=== PATIENT | female | born 1960 | race Caucasian/White ===

== ENCOUNTER 2016-05-08 16:50 | Observation (INO) | payer OTHER ==
[~2016-05-08] VITALS: Ht 149.9 cm; Wt 104.4 kg
[~2016-05-08 16:50] MED LIST: ADVIN50/60 INH; ALBINS/ INH; CLON0.3T PO; DEXT5TAB PO; GABA-113 PO; LOSA1TAB38 PO; MULT-506 PO; POLY335019 PO; SERT-234 PO; VNTHFA/IN INH; ZNTT/150 PO
[2016-05-08] MEDS ORDERED: ASPIRIN 81 MG CHEW PO STA (17:02)
[2016-05-08] MEDS ORDERED: TRAZ50TA35 PO (17:11)
[2016-05-08] MEDS ORDERED: NITROGLYCERIN 0.4 MG SL PER TAB CHARGE SL PRN ×2 (17:15→19:30)
[2016-05-08] MEDS ORDERED: ALBUTEROL 0.083% NEBU SOLN 3 ML VIAL INH STA (17:24)
[2016-05-08 17:28] LABS: BASO % 0.8 %; BASO ABS # 0.08 K/uL (0-0.2); COMPLETE YES; EOS % 6.8 %; HEMATOCRIT 38.7 % (37-47); IG% 0.6 %; LYMPH % 19.3 %; LYMPH ABS # 1.95 K/uL (1.2-3.4); MEAN CELL VOLUME 83.8 fL (80-100); MEAN CORPUSCULAR HEMOGLOBIN 28.8 pg (25-34); MEAN CORPUSCULAR HGB CONC 34.4 g/dl (32-36); MEAN PLATELET VOLUME 10.3 fL (7.4-10.4); MONO % 4.8 %; NEUT % 67.7 %; PLATELET COUNT 289 K/uL (130-400); RED BLOOD COUNT 4.62 M/uL (4.2-5.4); WHITE BLOOD COUNT 10.12 K/uL (4.8-10.8)
--- NOTE | 2016-05-08 17:44 | DIAGNOSTIC IMAGING REPORT ---
SINGLE VIEW CHEST CLINICAL HISTORY: Atypical chest pain. FINDINGS: An AP, portable, upright chest radiograph is obtained. No prior studies are available for comparison at the time of dictation. The examination is degraded by portable technique, large body habitus, and patient rotation. The heart appears enlarged. The pulmonary vasculature is noncongested. There is mild elevation of the right hemidiaphragm. The lungs and pleural spaces are clear. No pneumothorax is seen. The bony thorax is grossly intact. IMPRESSION: Mild cardiac enlargement with no acute cardiopulmonary abnormality. Electronically signed by: Adam Leon M.D. 05/08/2016 5:43 PM Dictated Date/Time: 05/08/2016 5:42 PM
[2016-05-08 17:48] LABS: BLOOD UREA NITROGEN 13 mg/dl (7-18); BUN/CREATININE RATIO 13.3 (10-20); CALCIUM 8.7 mg/dl (8.5-10.1); CARBON DIOXIDE 30 mmol/L (21-32); CHLORIDE 105 mmol/L (98-107); GLUCOSE 159 mg/dl (70-99); POTASSIUM 3.1 mmol/L (3.5-5.1); SODIUM 142 mmol/L (136-145)
[2016-05-08 17:53] LABS: CKMB/CK RATIO 1.2 (0-3.0)
[2016-05-08] MEDS ORDERED: KETOROLAC TROMETHAMINE 30 MG/ML VIAL IV STA (18:09)
[2016-05-08] MEDS ORDERED: POTASSIUM CHLORIDE 20 MEQ TABCR PO ONE (18:45)
[2016-05-08] MEDS ORDERED: ONDANSETRON INJ 2 MG/ML 2 ML VIAL IV PRN (18:45)
[2016-05-08] MEDS ORDERED: POLYETHYLENE (MIRALAX) 17 GM PACK PO PRN (19:15)
[2016-05-08] MEDS ORDERED: ALBUTEROL HFA 8 GM INHALER INH PRN (19:30)
[2016-05-08 19:47] VITALS: BP 172/93; PULSE 80; TEMP 37; O2SAT 96; BMI 46.6
--- NOTE | 2016-05-08 20:18 | History and Physical ---
History & Physical Date & Time of Service: May 08, 2016 at 19:32 Chief Complaint: Chest Pain Primary Care Physician: Navya Henson D.O. History of Present Illness Source: patient, clinic records This is a 56 year old female with PMH of asthma, hypertension, prediabetes, borderline hyperlipidemia per patient, who presents to the ED with chest pain and shortness of breath. Patient states she had 2 asthma exacerbations treated with steroids 2 months ago and 1 month ago. Symptoms initially improved then returned over past few weeks. She reports nasal congestion, dry cough, wheezing , SOB at rest and exertion. She states rescue nebs and inhalers are no longer helping. She also stopped Advair as she felt it was not helping. Breathing is now improved after neb given in ER. Patient reports chest pain intermittently over past 1 month described as stabbing from her back to her chest. She attributed this to anxiety. She also reports for past 2 weeks she has intermittent central chest pain described as cramping and soreness which radiates to her neck and left shoulder, which is worse with cough or straining for bowel movement. Denies association with exertion. Nitro in the ER did not affect the pain, but gave her a headache. Pain is now resolved but is feeling mildly nauseous. She reports dry mouth and states she feels dehydrated. She is eating normally but "not drinking enough". She had an episode of vomiting 2 days ago which resolved. Pt states her acid reflux symptoms have been uncontrolled recently. She was on Nexium in the past but was changed to Zantac due to insurance coverage. She has EGD and colonoscopy scheduled for next Saturday with Dr. Dawson. Pt states BP is running 180s- 200s systolic at home for past few days. She has been compliant with BP meds. She had chills/ sweats a few days ago. Denies fever, sore throat, swallowing difficulty, abdominal pain , diarrhea, urinary change, calf pain, edema, abnormal bleeding. Denies any cardiac history. Last echo and stress test in 2010 in [place] were unremarkable as per patient. Past Medical/Surgical History Medical Problems: (1) Anxiety Status: Chronic (2) Asthma Status: Chronic (3) Borderline high cholesterol Status: Chronic (4) Depression Status: Chronic (5) GERD (gastroesophageal reflux disease) Status: Chronic (6) Hypertension Status: Chronic (7) Prediabetes Status: Chronic Surgical Problems: (1) History of hysterectomy Status: Chronic Family History AICD (automatic internal cardiac defibrillator) MOTHER Social History Smoking Status: Never Smoker Alcohol Use: none Allergies Coded Allergies: Latex1 -Allergic Contact Dermititis (Unverified Allergy, Mild, ITCHING, REDNESS, BLISTER, 05/08/16) Aspirin (Verified Allergy, Unknown, MOUTH ULCERS AND BLISTERS IF TAKEN DAILY, 05/08/16) Eggs or Egg-derived Products (Verified Allergy, Unknown, NAUSEA/VOMITING, 05/08/16) Hydralazine (Verified Allergy, Unknown, SEVERE MUSCLE PAIN AND WEAKNESS, ) Milk (Verified Allergy, Unknown, RASH, 05/08/16) Rosuvastatin (Verified Allergy, Unknown, MUSCLE PAIN, 05/08/16) Hydrochlorothiazide (Verified Adverse Reaction, Intermediate, HIVES, ) Uncoded Allergies: BANANAS (Allergy, Unknown, MOUTH SORES/BLISTERS, 05/08/16) Home Medications Scheduled Clonidine Hcl (Catapres), 0.3 MG PO BID Fluticasone Prop/Salmeterol (Advair Diskus 500/50 60 Dose), 1 PUFF INH BID Gabapentin (Neurontin), 600 MG PO TID Losartan Potassium (Cozaar), 100 MG PO QAM Multivitamin (Multivitamin), 1 TAB PO QAM Ranitidine (Zantac), 150 MG PO BID Sertraline (Zoloft), 100 MG PO QAM Trazodone Hcl (Trazodone), 50 MG PO HS Scheduled PRN Albuterol Hfa (Ventolin Hfa), 2 PUFFS INH Q6H PRN for SOB/Wheezing Albuterol Sulf (Proventil 0.083% 2.5MG/3ML), 2.5 MG INH QID PRN for SOB/Wheezing Polyethylene Glycol 3350 (Miralax), 17 GM PO DAILY PRN for Constipation Review of Systems Ten point review of systems performed with pertinent positives and negatives noted in HPI. Physical Exam Vital Signs Date Time Temp Pulse Resp B/P Pulse Ox O2 Delivery O2 Flow Rate FiO2 05/08/16 19:14 81 18 148/74 96 Room Air 05/08/16 18:19 84 16 179/81 94 Room Air 05/08/16 17:07 98 Room Air 05/08/16 17:03 36.9 100 20 190/99 97 Room Air 05/08/16 17:03 97 Room Air 05/08/16 17:02 90 General Appearance: no apparent distress, + obese Head: normocephalic, atraumatic Eyes: normal inspection, PERRL, EOMI, sclerae normal ENT: hearing grossly normal, pharynx normal Neck: supple, trachea midline Respiratory/Chest: normal breath sounds, no respiratory distress, + wheezing ( moderate expiratory wheezing), + pertinent finding (+ chest wall tenderness) Cardiovascular: regular rate, rhythm, no murmur Abdomen/GI: normal bowel sounds, soft, + pertinent finding (mild epigastric tenderness) Back: + pertinent finding (+ thoracic paraspinal muscle tenderness) Extremities/Musculoskelatal: normal inspection, no calf tenderness, no pedal edema Neurologic/Psych: alert, normal mood/affect, oriented x 3, + pertinent finding (grossly nonfocal) Skin: normal color, warm/dry, no rash (no rash on the chest) Diagnostics Laboratory Results Results Past 24 Hours Test 05/08/16 17:05 Range/Units White Blood Count 10.12 4.8-10.8 K/uL Red Blood Count 4.62 4.2-5.4 M/uL Hemoglobin 13.3 12.0-16.0 g/dL Hematocrit 38.7 37-47 % Mean Corpuscular Volume 83.8 80-100 fL Mean Corpuscular Hemoglobin 28.8 25-34 pg Mean Corpuscular Hemoglobin Concent 34.4 32-36 g/dl Platelet Count 289 130-400 K/uL Mean Platelet Volume 10.3 7.4-10.4 fL Neutrophils (%) (Auto) 67.7 % Lymphocytes (%) (Auto) 19.3 % Monocytes (%) (Auto) 4.8 % Eosinophils (%) (Auto) 6.8 % Basophils (%) (Auto) 0.8 % Neutrophils # (Auto) 6.85 1.4-6.5 K/uL Lymphocytes # (Auto) 1.95 1.2-3.4 K/uL Monocytes # (Auto) 0.49 0.11-0.59 K/uL Eosinophils # (Auto) 0.69 0-0.5 K/uL Basophils # (Auto) 0.08 0-0.2 K/uL RDW Standard Deviation 45.0 36.4-46.3 fL RDW Coefficient of Variation 14.6 11.5-14.5 % Immature Granulocyte % (Auto) 0.6 % Immature Granulocyte # (Auto) 0.06 0.00-0.02 K/uL D-Dimer 400 0-500 ug/L FEU Sodium Level 142 136-145 mmol/L Potassium Level 3.1 3.5-5.1 mmol/L Chloride Level 105 98-107 mmol/L Carbon Dioxide Level 30 21-32 mmol/L Anion Gap 7.0 3-11 mmol/L Blood Urea Nitrogen 13 7-18 mg/dl Creatinine 1.00 0.60-1.20 mg/dl Est Creatinine Clear Calc Drug Dose 68.9 ml/min Estimated GFR () 74.0 Estimated GFR (Non- 63.8 BUN/Creatinine Ratio 13.3 10-20 Random Glucose 159 70-99 mg/dl Calcium Level 8.7 8.5-10.1 mg/dl Total Creatine Kinase 58 26-192 U/L Creatine Kinase MB 0.7 0.5-3.6 ng/ml Creatine Kinase MB Ratio 1.2 0-3.0 Troponin I < 0.015 0-0.045 ng/ml Diagnostic Radiology SINGLE VIEW CHEST CLINICAL HISTORY: Atypical chest pain. FINDINGS: An AP, portable, upright chest radiograph is obtained. No prior studies are available for comparison at the time of dictation. The examination is degraded by portable technique, large body habitus, and patient rotation. The heart appears enlarged. The pulmonary vasculature is noncongested. There is mild elevation of the right hemidiaphragm. The lungs and pleural spaces are clear. No pneumothorax is seen. The bony thorax is grossly intact. IMPRESSION: Mild cardiac enlargement with no acute cardiopulmonary abnormality. EKG NSR, nonspecific T wave abnormality, no ST changes, no prior EKG available to compare Impression Assessment and Plan CHEST PAIN Rule out ACS (less likely given history)- risk factors include HTN, borderline dyslipidemia, prediabetes, obesity Differential includes musculoskeletal, pleuritic, GERD, anxiety related pain Initial troponin negative; d dimer negative; CXR unremarkable EKG- nonspecific T wave abnormality Received aspirin 324 mg and nitro in ER Check echo Trend serial cardiac enzymes Recheck EKG in am ASTHMA EXACERBATION No consolidation on CXR Check influenza PCR IV Solu-Medrol 40 mg BID Duonebs q6h Continue home inhalers UNCONTROLLED HYPERTENSION BP high as 190s/90s in ER -> improved to 140s/70s after nitro Was running 180s-200s at home past few days as per patient Has been compliant with home meds Continue clonidine 0.3 mg BID and Losartan 100 mg daily Add amlodipine 5 mg daily Monitor BP HYPOKALEMIA PO replacement and recheck in am PREDIABETES Monitor BSG AC HS Check A1c in am Regular diet requested by patient HX OF BORDERLINE DYSLIPIDEMIA Not on medication States had myalgias with statin in the past Check lipid panel in am GERD Reports uncontrolled symptoms Was on Nexium in past- changed to Zantac due to insurance coverage Will d/c Zantac and restart PPI Plans for EGD next week with Dr. Dawson DEPRESSION/ ANXIETY Continue home medications DVT PROPHYLAXIS Lovenox SQ DISPOSITION Observation to telemetry Follows with Dr. Navya Henson for primary care Patient seen in collaboration with Dr. Shahid. Please see his addendum. Attending Note: Patient is a 56 Yr old female with PMH of asthma, hypertension, prediabetes presents with history of SOB and retrosternal sharp chest pain. Reports associated dry cough and wheezing. Chest pain is intermittent, onset at rest, starts from back and radiates to front retrosternally, sharp in quality, sometimes radiates to neck and shoulder, increases with cough. Her asthma is not well controlled and she stopped using advair and believes it is not working. She had nausea and vomiting 2 days ago which currently resolved. Also has H/O GERD which is believes is not well controlled as well. Physical Exam: Vitals signs as noted above General: well built and nourished, obese, no apparent distress HEENT: NC/AT, EOMI, PERRLA Neck: supple, no JVD CVS: S1, S2, no murmur Chest: Tender to palpate retrosternally, normal breath sounds, wheezes bilaterally Abd: Soft, mild epigastric tenderness, no guarding/rigidity, BS present CLAIM TECHNICIAN: No focal deficits Ext: No cyanosis, clubbing, edema Assessment and Plan: Asthma exacerbation: Start on IV solumedrol Duonebs QID CXR: No signs of consolidation Oxygen PRN Continue home inhalers Chest Pain: R/O ACS Likely costochondritis/secondary to asthma exacerbation EKG: Nonspecific T wave changes Trend troponin Check ECHO Repeat EKG in AM Hypokalemia: Replace and monitor Hypertensive Urgency: Currently controlled Continue clonidine, losartan Start her on amlodipine GERD: Start on PPI Hold Zantac Plan for EGD next week by Agree with rest of assessment and plan of Jannet Grigsby PA-C as above VTE Prophylaxis VTE Risk Assessment Done? Y/N: Yes Risk Level: Moderate
[2016-05-08] MEDS: FLUTICASONE/SALMETEROL (ADVAIR) 500/50 INH 14 PUFF INH SCH (20:33)
[2016-05-08] MEDS: METHYLPREDNISOLONE IV 40 MG in SYRINGE 0 ML IV SCH (20:33)
[2016-05-08] MEDS: GABAPENTIN 600 MG TAB PO SCH (20:34)
[2016-05-08] MEDS: CLONIDINE HCL 0.3 MG TAB PO SCH (20:34)
[2016-05-08] MEDS: ALBUT/IPRATROP 3MG/0.5MG NEB 3 ML VIAL INH SCH (20:43)
[2016-05-08 20:44] VITALS: PULSE 75; O2SAT 96
[2016-05-08] MEDS ORDERED: IV FLUIDS COMPLETED PRN (20:45)
[2016-05-08] MEDS ORDERED: TRAZODONE HCL 50 MG TAB PO SCH (21:00)
[2016-05-08] MEDS ORDERED: RANITIDINE HCL 150 MG TAB PO SCH (21:00)
[2016-05-09] VITALS (7 sets, daily range): BP systolic 151–170; BP diastolic 82–91; PULSE 76–109; TEMP 36.3–36.7; O2SAT 94–95; Ht 149.9 cm; Wt 104.4 kg
[2016-05-09 00:30] LABS: INFLUENZA A PCR Neg for Influ A (NEG); INFLUENZA B PCR Neg for Influ B (NEG)
--- NOTE | 2016-05-09 00:41 | EMERGENCY ROOM VISIT NOTE ---
History Report prepared by Damion: Lamine Perez Under the Supervision of: Dr. Tr Bahena D.O. First contact with patient: 16:52 Stated Complaint: CHEST PAIN History of Present Illness The patient is a 56 year old female who presents to the Emergency Room with complaints of intermittent chest pain beginning four days prior to arrival. She describes her pain as a stabbing pain. The patient states the pain starts in the center of her back and radiates to her chest. She notes the episodes last for a couple seconds. The patient states her last episode was late last night or early this morning. She associates a pain in the back of her neck radiating to her head, shortness of breath, and squeezing chest pain that is different from the stabbing chest pain with today's symptoms. The patient notes her shortness of breath and squeezing chest pain worsens with exertion, which started 2-3 days ago. The stabbing chest pain will occur intermittently, usually at rest but nothing makes this better or worse. She states she has a history of asthma, but her symptoms today are different. The patient notes she has a history of hypertension, prediabetes, and borderline cholesterol. She states she experiences headaches due to her hypertension intermittently. The patient notes she does not take medication for her prediabetes or cholesterol. She denies a history of blood clots and heart disease. The patient denies a family history of heart attacks at a young age. She is a non-smoker. Pt denies headache, cough, change in vision, fevers, nausea, vomiting, diarrhea, pain with urination, and melena. Source of History: patient Onset: four days CASH POSTER Position: chest Quality: stabbing Timing: intermittent Associated Symptoms: + SOB, + back pain, + chest pain (squeezing), + neck pain (back of neck radiating to her head) Review of Systems See HPI for pertinent positives & negatives. A total of 10 systems reviewed and were otherwise negative. Past Medical & Surgical Medical Problems: (1) Anxiety (2) Asthma (3) Borderline high cholesterol (4) Chest pain (5) Depression (6) GERD (gastroesophageal reflux disease) (7) Hypertension (8) Prediabetes Surgical Problems: (1) History of hysterectomy Family History Patient reports no known family medical history. Social History Smoking Status: Never Smoker Marital Status: Occupation Status: disabled Current/Historical Medications Scheduled Clonidine Hcl (Catapres), 0.3 MG PO BID Fluticasone Prop/Salmeterol (Advair Diskus 500/50 60 Dose), 1 PUFF INH BID Gabapentin (Neurontin), 600 MG PO TID Losartan Potassium (Cozaar), 100 MG PO QAM Multivitamin (Multivitamin), 1 TAB PO QAM Ranitidine (Zantac), 150 MG PO BID Sertraline (Zoloft), 100 MG PO QAM Trazodone Hcl (Trazodone), 50 MG PO HS Scheduled PRN Albuterol Hfa (Ventolin Hfa), 2 PUFFS INH Q6H PRN for SOB/Wheezing Albuterol Sulf (Proventil 0.083% 2.5MG/3ML), 2.5 MG INH QID PRN for SOB/Wheezing Polyethylene Glycol 3350 (Miralax), 17 GM PO DAILY PRN for Constipation Allergies Coded Allergies: Latex1 -Allergic Contact Dermititis (Unverified Allergy, Mild, ITCHING, REDNESS, BLISTER, 05/08/16) Aspirin (Verified Allergy, Unknown, MOUTH ULCERS AND BLISTERS IF TAKEN DAILY, 05/08/16) Eggs or Egg-derived Products (Verified Allergy, Unknown, NAUSEA/VOMITING, 05/08/16) Hydralazine (Verified Allergy, Unknown, SEVERE MUSCLE PAIN AND WEAKNESS, ) Milk (Verified Allergy, Unknown, RASH, 05/08/16) Rosuvastatin (Verified Allergy, Unknown, MUSCLE PAIN, 05/08/16) Hydrochlorothiazide (Verified Adverse Reaction, Intermediate, HIVES, ) Uncoded Allergies: BANANAS (Allergy, Unknown, MOUTH SORES/BLISTERS, 05/08/16) Physical Exam Vital Signs Date Time Temp Pulse Resp B/P Pulse Ox O2 Delivery O2 Flow Rate FiO2 05/08/16 18:19 84 16 179/81 94 Room Air 05/08/16 17:07 98 Room Air 05/08/16 17:03 36.9 100 20 190/99 97 Room Air 05/08/16 17:03 97 Room Air 05/08/16 17:02 90 Physical Exam GENERAL: sitting up in bed, disheveled, non-toxic, no acute distress. EYE EXAM: normal conjunctiva OROPHARYNX: no exudate, no erythema, lips, buccal mucosa, and tongue normal and mucous membranes are moist NECK: supple, no nuchal rigidity, no adenopathy, non-tender LUNGS: Mild wheezing bilaterally to auscultation. Normal chest wall mechanics HEART: no murmurs, S1 normal and S2 normal CHEST: reproducible sternal tenderness on palpation ABDOMEN: abdomen soft, non-tender, normo-active bowel sounds, no masses, no rebound or guarding. BACK: Back is symmetrical on inspection and there is no deformity, no midline tenderness, no CVA tenderness. SKIN: no rashes and no bruising UPPER EXTREMITIES: upper extremities are grossly normal. LOWER EXTREMITIES: No pitting edema. Calves equal bilaterally. NEURO EXAM: Normal sensorium, cranial nerves II-XII grossly intact, normal speech, no gross weakness of arms, no gross weakness of legs. Medical Decision & Procedures ER Provider Diagnostic Interpretation: Xray results per the radiologist and my interpretation. Other results have been interpreted by the radiologist and reviewed by me. SINGLE VIEW CHEST CLINICAL HISTORY: Atypical chest pain. FINDINGS: An AP, portable, upright chest radiograph is obtained. No prior studies are available for comparison at the time of dictation. The examination is degraded by portable technique, large body habitus, and patient rotation. The heart appears enlarged. The pulmonary vasculature is noncongested. There is mild elevation of the right hemidiaphragm. The lungs and pleural spaces are clear. No pneumothorax is seen. The bony thorax is grossly intact. IMPRESSION: Mild cardiac enlargement with no acute cardiopulmonary abnormality. Electronically signed by: Adam Leon M.D. 05/08/2016 5:43 PM Laboratory Results 05/08/16 17:05 Red Blood Count 4.62, Mean Corpuscular Volume 83.8, Mean Corpuscular Hemoglobin 28.8, Mean Corpuscular Hemoglobin Concent 34.4, Mean Platelet Volume 10.3, Neutrophils (%) (Auto) 67.7, Lymphocytes (%) (Auto) 19.3, Monocytes (%) (Auto) 4.8, Eosinophils (%) (Auto) 6.8, Basophils (%) (Auto) 0.8, Neutrophils # (Auto) 6.85, Lymphocytes # (Auto) 1.95, Monocytes # (Auto) 0.49, Eosinophils # (Auto) 0.69, Basophils # (Auto) 0.08 05/08/16 17:05 Test 05/08/16 00:00 05/08/16 17:05 Influenza Type A (RT-PCR) Neg for Influ A (NEG) Influenza Type B (RT-PCR) Neg for Influ B (NEG) White Blood Count 10.12 K/uL (4.8-10.8) Red Blood Count 4.62 M/uL (4.2-5.4) Hemoglobin 13.3 g/dL (12.0-16.0) Hematocrit 38.7 % (37-47) Mean Corpuscular Volume 83.8 fL (80-100) Mean Corpuscular Hemoglobin 28.8 pg (25-34) Mean Corpuscular Hemoglobin Concent 34.4 g/dl (32-36) Platelet Count 289 K/uL (130-400) Mean Platelet Volume 10.3 fL (7.4-10.4) Neutrophils (%) (Auto) 67.7 % Lymphocytes (%) (Auto) 19.3 % Monocytes (%) (Auto) 4.8 % Eosinophils (%) (Auto) 6.8 % Basophils (%) (Auto) 0.8 % Neutrophils # (Auto) 6.85 K/uL (1.4-6.5) Lymphocytes # (Auto) 1.95 K/uL (1.2-3.4) Monocytes # (Auto) 0.49 K/uL (0.11-0.59) Eosinophils # (Auto) 0.69 K/uL (0-0.5) Basophils # (Auto) 0.08 K/uL (0-0.2) RDW Standard Deviation 45.0 fL (36.4-46.3) RDW Coefficient of Variation 14.6 % (11.5-14.5) Immature Granulocyte % (Auto) 0.6 % Immature Granulocyte # (Auto) 0.06 K/uL (0.00-0.02) D-Dimer 400 ug/L FEU (0-500) Anion Gap 7.0 mmol/L (3-11) Est Creatinine Clear Calc Drug Dose 68.9 ml/min Estimated GFR () 74.0 Estimated GFR (Non- 63.8 BUN/Creatinine Ratio 13.3 (10-20) Calcium Level 8.7 mg/dl (8.5-10.1) Magnesium Level 2.2 mg/dl (1.8-2.4) Laboratory results per my review. Medications Administered Medications (Trade) Dose Ordered Sig/Yola Route Start Time Stop Time Status Last Admin Dose Admin Aspirin (Aspirin Chew) 324 mg NOW STAT PO 05/08/16 17:02 05/08/16 17:04 DC 05/08/16 17:13 324 MG Nitroglycerin (Nitrostat Tab) 0.4 mg Q5M PRN SL 05/08/16 17:15 06/07/16 17:14 05/08/16 17:13 0.4 MG Albuterol Sulfate (Ventolin 0.083% 2.5MG/3ML Neb) 2.5 mg NOW STAT INH 05/08/16 17:24 05/08/16 17:25 DC 05/08/16 17:31 2.5 MG Ketorolac Tromethamine (Toradol Inj) 30 mg NOW STAT IV 05/08/16 18:09 05/08/16 18:10 DC 05/08/16 18:19 30 MG ECG Indication: chest pain Rate (beats per minute): 87 Rhythm: normal sinus Findings: T-wave inversion (Anterior), other (Normal axis. T-wave flattening in the inferior.) Comparison ECG Date: no prior available ED Course ED COURSE: Vital signs were reviewed and showed hypertension and tachycardia. The patients medical record was reviewed The above diagnostic studies were performed and reviewed. ED treatments and interventions as stated above. 1653: The patient was evaluated in room A2. A complete history and physical examination was performed. 170: Ordered Aspirin 324 mg PO. 1715: Ordered Nitroglycerin 0.4 mg SL. 1724: Ordered Albuterol Sulfate 2.5 mg INH. 1804: Reevaluated the patient at this time, and her chest tightness and shortness of breath has improved. 180: Ordered Toradol Inj 30 mg IV. 1810: I spoke to Jannet Grigsby PA-C, [facility] (Hospitalist) about the patient's case, and she will follow the patient for further evaluation. 1814: Upon reevaluation, the patient is doing well.I discussed my findings with the patient and she understands and agrees with the treatment plan. Based on the patients age, coexisting illnesses, exam and lab findings the decision to treat as an inpatient was made. The patient remained stable while under my care. The patient will be evaluated for further management. Medical Decision Differential diagnoses includes but is not limited to acute coronary syndrome, myocardial infarction, pericarditis, pulmonary embolus, aortic dissection, pneumonia, pneumothorax, musculoskeletal, shingles, esophageal. Patient is a 56-year-old female who presents the ER for chest pain associated with shortness of breath. She has a history of hypertension and is prediabetic with borderline hyperlipidemia. She notes that she has a sharp stabbing chest pain which has been present for the past 4 days. She also admits to a tightness /heaviness in the middle of her chest which has been present intermittently for the past 2 days associated with shortness of breath. She thinks that this is worse with exertion. She does have reproducible chest tenderness but notes that this is completely different. CBC is unremarkable. She has scant wheezing bilaterally which improved with albuterol. She was given nitroglycerin for chest pain. She is also given aspirin. Troponin was negative. EKG was nondiagnostic. Chest x-ray was unremarkable. Discussed case with internal medicine for observation patient will be worked up as an inpatient for her chest pain. Consults Time Called: 1808 Consulting Physician: Jannet Grigsby PA-C, [facility] (Hospitalist) Returned Call: 1810 I spoke to Jannet Grigsby PA-C, [facility] (Hospitalist) about the patient's case, and she will follow the patient for further evaluation. Impression Primary Impression: Precordial chest pain Additional Impression: Shortness of breath Scribe Attestation The scribe's documentation has been prepared under my direction and personally reviewed by me in its entirety. I confirm that the note above accurately reflects all work, treatment, procedures, and medical decision making performed by me. Departure Information Dispostion Being Evaluated By Hospitalist (Jannet Grigsby PA-C, [facility] (Hospitalist)) Referrals Forrest Morse M.D. (PCP) Problem Qualifiers
[2016-05-09] MEDS: ACETAMINOPHEN 325 MG TAB PO PRN ×2 (04:33→12:59)
[2016-05-09 05:53] LABS: MEAN CELL VOLUME 82.7 fL (80-100); MEAN CORPUSCULAR HGB CONC 33.9 g/dl (32-36); MEAN PLATELET VOLUME 10.3 fL (7.4-10.4); PLATELET COUNT 309 K/uL (130-400); RED BLOOD COUNT 4.96 M/uL (4.2-5.4); WHITE BLOOD COUNT 11.93 K/uL (4.8-10.8)
[2016-05-09 06:13] LABS: ESTIMATED AVERAGE GLUCOSE 137 mg/dl; HA1C FLAG Normal (Normal)
[2016-05-09 06:26] LABS: BLOOD UREA NITROGEN 14 mg/dl (7-18); BUN/CREATININE RATIO 14.1 (10-20); CALCIUM 9.6 mg/dl (8.5-10.1); CARBON DIOXIDE 26 mmol/L (21-32); CHLORIDE 104 mmol/L (98-107); CREATININE 0.98 mg/dl (0.60-1.20); GLUCOSE 246 mg/dl (70-99); MAGNESIUM 2.2 mg/dl (1.8-2.4); POTASSIUM 4.1 mmol/L (3.5-5.1); SODIUM 140 mmol/L (136-145)
[2016-05-09 06:31] LABS: CKMB/CK RATIO 1.1 (0-3.0)
[2016-05-09] MEDS: ALBUT/IPRATROP 3MG/0.5MG NEB 3 ML VIAL INH SCH ×2 (07:33→11:13)
[2016-05-09] MEDS: METHYLPREDNISOLONE IV 40 MG in SYRINGE 0 ML IV SCH (07:46)
[2016-05-09] MEDS: FLUTICASONE/SALMETEROL (ADVAIR) 500/50 INH 14 PUFF INH SCH (07:46)
[2016-05-09] MEDS: CLONIDINE HCL 0.3 MG TAB PO SCH (07:47)
[2016-05-09] MEDS: GABAPENTIN 600 MG TAB PO SCH ×2 (07:49→12:57)
[2016-05-09] MEDS ORDERED: AMLODIPINE BESYLATE 5 MG TAB PO SCH (09:00)
[2016-05-09] MEDS ORDERED: SERTRALINE HCL 100 MG TAB PO SCH (09:00)
[2016-05-09] MEDS ORDERED: MULTIVITAMIN TAB PO SCH (09:00)
[2016-05-09] MEDS ORDERED: LOSARTAN POTASSIUM 50 MG TAB PO SCH (09:00)
[2016-05-09] MEDS ORDERED: PANTOprazole SOD 40 MG TAB PO SCH (09:00)
--- NOTE | 2016-05-09 10:47 | ECHOCARDIOGRAM REPORT ---
*NOTICE TO RECEIVING CONSTITUTION PARTY AGENCY This information is strictly Confidential and protected under [place] law. [place] law prohibits you from making any further disclosure of this information unless further disclosure is expressly permitted by the written consent of the person to whom it pertains or is authorized by law. A general authorization for the release of medical or other information is not sufficient for this purpose. Hospital accepts no responsibility if the information is made available to any other person, INCLUDING THE PATIENT. Interpretation Summary * Name: TAMIKA HURST Study Date: 05/09/2016 07:03 AM BP: 160/91 mmHg * Patient Location: C.2T\S\S240\S\1 HR: 82 * : 1960 (M/d/yyyy) Gender: Female Height: 59 in * Age: 56 yrs Ethnicity: [place] Weight: 230 lb * Ordering Physician: Jannet Grigsby * Referring Physician: Self, Referred * Performed By: Romel Westbrook RCS * * Reason For Study: Chest Pain * BSA: 2.0 m2 * The study was technically adequate. * -- Conclusions -- * The left ventricular wall motion is normal. * The LV Ejection Fraction = 55-60%. * Grade I diastolic dysfunction, (abnormal relaxation pattern). * There is no significant valvular heart disease. Procedure Details * A complete two-dimensional transthoracic echocardiogram was performed (2D, M-mode, Doppler and color flow Doppler). Left Ventricle * The left ventricle is normal in size. * There is normal left ventricular wall thickness. * Left ventricular systolic function is normal. * Ejection Fraction = 55-60%. * The left ventricular wall motion is normal. Right Ventricle * The right ventricle is normal size. * The right ventricular systolic function is normal as assessed by tricuspid annular plane systolic excursion (TAPSE) (normal >1.5 cm). Atria * The left atrial size is normal. * Right atrial size is normal. * There is no evidence of atrial septal defect, but resolution does not allow assessment for a patent foramen ovale. Mitral Valve * The mitral valve is normal. * There is no mitral valve stenosis. * Significant mitral regurgitation is absent. Tricuspid Valve * The tricuspid valve is normal. * There is no tricuspid stenosis. * Significant tricuspid regurgitation is absent. Aortic Valve * The aortic valve is trileaflet. * Aortic stenosis is absent. * There is no significant aortic regurgitation. Pulmonic Valve * The pulmonary valve is not well seen, but the Doppler examination is normal without significant regurgitation or stenosis. Great Vessels * The aortic root and proximal ascending aorta are normal sized. Pericardium/Pleural * There is no pericardial effusion. Great Vessels * Normal inferior vena cava diameter and respiratory variation suggests normal central venous pressure. Left Ventricular Diastolic Function * Grade I diastolic dysfunction, (abnormal relaxation pattern). MMode 2D Measurements and Calculations IVSd 1.0 cm IVSs 1.3 cm LVIDd 4.6 cm LVIDs 3.1 cm LVPWd 1.0 cm LVPWs 1.3 cm IVS/LVPW 1.0 FS 32.7 % EDV(Teich) 99.7 ml ESV(Teich) 38.7 ml EF(Teich) 61.2 % EDV(cubed) 100.4 ml ESV(cubed) 30.6 ml EF(cubed) 69.5 % % IVS thick 32.2 % % LVPW thick 32.9 % LV mass(C)d 163.4 grams LV mass(C)dI 83.5 grams/m\S\2 LV mass(C)s 137.6 grams LV mass(C)sI 70.3 grams/m\S\2 CO(Teich) 4.9 l/min CI(Teich) 2.5 l/min/m\S\2 SV(Teich) 61.0 ml SI(Teich) 31.2 ml/m\S\2 CO(cubed) 5.7 l/min CI(cubed) 2.9 l/min/m\S\2 SV(cubed) 69.8 ml SI(cubed) 35.7 ml/m\S\2 Ao root diam 3.7 cm Ao root area 10.9 cm\S\2 ACS 1.7 cm LA dimension 3.9 cm LA/Ao 1.1 LVAd ap4 30.6 cm\S\2 LVLd ap4 8.8 cm EDV(MOD-sp4) 88.0 ml LVAs ap4 15.6 cm\S\2 LVLs ap4 6.8 cm ESV(MOD-sp4) 30.0 ml EF(MOD-sp4) 65.9 % LVAd ap2 26.4 cm\S\2 LVLd ap2 8.5 cm EDV(MOD-sp2) 68.0 ml LVAs ap2 14.2 cm\S\2 LVLs ap2 7.1 cm ESV(MOD-sp2) 25.0 ml EF(MOD-sp2) 63.2 % CO(MOD-sp4) 4.7 l/min CI(MOD-sp4) 2.4 l/min/m\S\2 SV(MOD-sp4) 58.0 ml SI(MOD-sp4) 29.6 ml/m\S\2 CO(MOD-sp2) 3.5 l/min CI(MOD-sp2) 1.8 l/min/m\S\2 SV(MOD-sp2) 43.0 ml SI(MOD-sp2) 22.0 ml/m\S\2 Doppler Measurements and Calculations MV E max jewel 102.4 cm/sec MV A max jewel 111.1 cm/sec MV E/A 0.92 MV P1/2t max jewel 103.2 cm/sec MV P1/2t 97.4 msec MVA(P1/2t) 2.3 cm\S\2 MV dec slope 310.1 cm/sec\S\2 MV dec time 0.25 sec Ao V2 max 125.6 cm/sec Ao max PG 6.3 mmHg Ao max PG (full) 2.6 mmHg LV V1 max PG 3.7 mmHg LV V1 max 96.3 cm/sec PA V2 max 102.3 cm/sec PA max PG 4.2 mmHg
--- NOTE | 2016-05-09 14:00 | Progress Note ---
Subjective Date of Service: May 09, 2016. Subjective Pt evaluation today including: conversation w/ patient, physical exam, lab review, review of studies, review of inpatient medication list Saw/examined the patient in room 240 Doing well today; no problems/issues to note Breathing improved with nebulizer treatments Denies chest pain +anxiety, very eager to get home Problem List Medical Problems: (1) Precordial chest pain Status: Acute (2) Shortness of breath Status: Acute Review of Systems Constitutional: No chills, No fever Respiratory: + shortness of breath (improved), No cough, No dyspnea at rest, No dyspnea on exertion, No hemoptysis, No sputum, No wheezing Cardiac: No chest pain, No edema, No orthopnea, No palpitations Abdomen: No diarrhea, No nausea, No pain, No vomiting Heme: No abnormal bleeding/bruising Medications Current Inpatient Medications Medications (Trade) Dose Ordered Sig/Yola Route Start Time Stop Time Status Last Admin Dose Admin Nitroglycerin (Nitrostat Tab) 0.4 mg Q5M PRN SL 05/08/16 17:15 06/07/16 17:14 05/08/16 17:13 0.4 MG Acetaminophen (Tylenol Tab) 650 mg Q4H PRN PO 05/08/16 18:45 06/07/16 18:44 05/09/16 12:59 650 MG Ondansetron HCl (Zofran Inj) 4 mg Q6H PRN IV 05/08/16 18:45 06/07/16 18:44 Clonidine HCl (Catapres Tab) 0.3 mg BID PO 05/08/16 21:00 06/07/16 20:59 05/09/16 07:47 0.3 MG Salmeterol Xinafoate/ Fluticasone (Advair Diskus 500/50 Inh) 1 puff BID INH 05/08/16 21:00 06/07/16 20:59 05/09/16 07:46 1 PUFF Gabapentin (Neurontin Tab) 600 mg TID PO 05/08/16 21:00 06/07/16 20:59 05/09/16 12:57 600 MG Losartan Potassium (coZAAR TAB) 100 mg QAM PO 05/09/16 09:00 06/08/16 08:59 05/09/16 07:48 100 MG Multivitamins (Multivitamin Tab) 1 tab QAM PO 05/09/16 09:00 06/08/16 08:59 05/09/16 07:48 1 TAB Sertraline HCl (Zoloft Tab) 100 mg QAM PO 05/09/16 09:00 06/08/16 08:59 05/09/16 07:47 100 MG Trazodone HCl (Desyrel Tab) 50 mg HS PO 05/08/16 21:00 06/07/16 20:59 05/08/16 20:34 50 MG Polyethylene (Miralax Powder Packet) 17 gm DAILY PRN PO 05/08/16 19:15 06/07/16 19:14 Nitroglycerin (Nitrostat Tab) 0.4 mg UD PRN SL 05/08/16 19:30 06/07/16 19:29 Albuterol (Ventolin Hfa Inhaler) 2 puffs Q6H PRN INH 05/08/16 19:30 06/07/16 19:29 Albuterol/ Ipratropium 3 ml 3 ml QIDR INH 05/08/16 20:00 06/07/16 19:59 05/09/16 11:13 3 ML Methylprednisolone Sodium Succinate/ Syringe (Solu-Medrol IV/ Syringe) 0.64 ml @ 1.5 mls/min BID IV 05/08/16 21:00 06/07/16 20:59 05/09/16 07:46 1.5 MLS/MIN Amlodipine Besylate (Norvasc Tab) 5 mg QAM PO 05/09/16 09:00 06/08/16 08:59 Pantoprazole Sodium (Protonix Tab) 40 mg QAM PO 05/09/16 09:00 06/08/16 08:59 05/09/16 07:47 40 MG Miscellaneous (Iv Fluids Completed) 1 ea PRN PRN N/A 05/08/16 20:45 05/08/17 20:44 Objective Vital Signs Date Time Temp Pulse Resp B/P Pulse Ox O2 Delivery O2 Flow Rate FiO2 05/09/16 12:00 Room Air 05/09/16 11:52 36.5 109 20 162/82 95 Room Air 05/09/16 11:13 100 16 94 Room Air 05/09/16 08:00 Room Air 05/09/16 07:53 36.3 87 18 170/83 94 Room Air 05/09/16 07:33 87 16 94 Room Air 05/09/16 04:00 Room Air 05/09/16 04:00 36.5 76 18 160/91 94 Room Air 05/09/16 00:00 36.7 78 18 151/85 95 Room Air 05/09/16 00:00 Room Air 05/08/16 20:44 75 16 96 Room Air 05/08/16 20:00 Room Air 05/08/16 19:47 37.0 80 18 172/93 96 Room Air 05/08/16 19:14 81 18 148/74 96 Room Air 05/08/16 18:19 84 16 179/81 94 Room Air 05/08/16 17:07 98 Room Air 05/08/16 17:03 36.9 100 20 190/99 97 Room Air 05/08/16 17:03 97 Room Air 05/08/16 17:02 90 Physical Exam General Appearance: no apparent distress Respiratory/Chest: lungs clear, normal breath sounds, no respiratory distress, no accessory muscle use Cardiovascular: regular rate, rhythm, no edema, no murmur Abdomen: normal bowel sounds, non tender, soft Extremities: normal inspection, no pedal edema Laboratory Results Last 24 Hours Test 05/08/16 17:05 05/08/16 20:05 05/08/16 23:20 05/09/16 05:08 White Blood Count 10.12 K/uL 11.93 K/uL Red Blood Count 4.62 M/uL 4.96 M/uL Hemoglobin 13.3 g/dL 13.9 g/dL Hematocrit 38.7 % 41.0 % Mean Corpuscular Volume 83.8 fL 82.7 fL Mean Corpuscular Hemoglobin 28.8 pg 28.0 pg Mean Corpuscular Hemoglobin Concent 34.4 g/dl 33.9 g/dl Platelet Count 289 K/uL 309 K/uL Mean Platelet Volume 10.3 fL 10.3 fL Neutrophils (%) (Auto) 67.7 % Lymphocytes (%) (Auto) 19.3 % Monocytes (%) (Auto) 4.8 % Eosinophils (%) (Auto) 6.8 % Basophils (%) (Auto) 0.8 % Neutrophils # (Auto) 6.85 K/uL Lymphocytes # (Auto) 1.95 K/uL Monocytes # (Auto) 0.49 K/uL Eosinophils # (Auto) 0.69 K/uL Basophils # (Auto) 0.08 K/uL RDW Standard Deviation 45.0 fL 43.5 fL RDW Coefficient of Variation 14.6 % 14.5 % Immature Granulocyte % (Auto) 0.6 % Immature Granulocyte # (Auto) 0.06 K/uL D-Dimer 400 ug/L FEU Sodium Level 142 mmol/L 140 mmol/L Potassium Level 3.1 mmol/L 4.1 mmol/L Chloride Level 105 mmol/L 104 mmol/L Carbon Dioxide Level 30 mmol/L 26 mmol/L Anion Gap 7.0 mmol/L 10.0 mmol/L Blood Urea Nitrogen 13 mg/dl 14 mg/dl Creatinine 1.00 mg/dl 0.98 mg/dl Est Creatinine Clear Calc Drug Dose 68.9 ml/min 70.1 ml/min Estimated GFR () 74.0 75.8 Estimated GFR (Non- 63.8 65.4 BUN/Creatinine Ratio 13.3 14.1 Random Glucose 159 mg/dl 246 mg/dl Calcium Level 8.7 mg/dl 9.6 mg/dl Magnesium Level 2.2 mg/dl 2.2 mg/dl Total Creatine Kinase 58 U/L 52 U/L 53 U/L Creatine Kinase MB 0.7 ng/ml < 0.5 ng/ml 0.6 ng/ml Creatine Kinase MB Ratio 1.2 1.1 Troponin I < 0.015 ng/ml < 0.015 ng/ml < 0.015 ng/ml Bedside Glucose 176 mg/dl Estimated Average Glucose 137 mg/dl Hemoglobin A1c 6.4 % Test 05/09/16 06:26 05/09/16 11:15 Bedside Glucose 235 mg/dl 282 mg/dl Assessment and Plan This is a 56 year old female with PMH of asthma and HTN presents with worsening shortness of breath and chest pain Acute Asthma Exacerbation * patient presented with shortness of breath * clinically much improved * lung exam is clear * eager to get home * nebulizers have helped * will switch IV solumedrol to medrol dosepak Chest Pain r/o ACS * doing well, clinically denies chest pain today * states that her chest pain was likely related to work she was doing at home * cardiac enzymes negative x 3 * echo reviewed - mild grade 1 diastolic dysfunction, normal LVEF * no specific changes on EKG * no significant findings on CXR * outpatient follow-up with PCP Uncontrolled Hypertension, improving * likely worsened with anxiety * would continue clonidine 0.3mg BID and Losartan 100mg daily * stopped Norvasc due to lower extremity edema in the past * outpatient follow-up with PCP Hypokalemia, resolved Prediabetes * Ha1c = 6.4% * improve diet as outpatient * outpatient f/u with PCP GERD * EGD next week with GI * PPI Depression/Anxiety * Continue home medications DVT ppx Lovenox d/c home with outpatient f/u with Dr. Hernandez on May 14 @ 11:10AM
[2016-05-09] MEDS ORDERED: METH4PAK PO (14:03)
--- NOTE | 2016-05-09 14:07 | Discharge Instructions ---
Discharge Instructions Admission Reason for Admission: Chest Pain Discharge Discharge Diagnosis / Problem: Acute Asthma Exacerbation; CP r/o ACS Discharge Goals Goal(s): Decrease discomfort, Improve function Activity Recommendations Activity Limitations: resume your previous activity . Instructions / Follow-Up Instructions / Follow-Up Please follow-up with Dr. Hernandez on May 14 @ 11:10AM * You will be on a medrol dosepak - use as directed * please have your primary care doctor check your lipid panel * Primary care should recheck blood pressure Current Hospital Diet Patient's current hospital diet: Regular Diet Discharge Diet Recommended Diet: Diabetes Type 2 Diet Pending Studies Studies pending at discharge: no Laboratory Results Hemoglobin A1c Test 05/09/16 05:08 Range/Units Estimated Average Glucose 137 mg/dl Hemoglobin A1c 6.4 H 4.5-5.6 % Medical Emergencies . Who to Call and When: Medical Emergencies: If at any time you feel your situation is an emergency, please call 911 immediately. . Non-Emergent Contact Non-Emergency issues call your: Primary Care Provider . . "Provider Documentation" section prepared by Reuben River. VTE Core Measure Inpt VTE Proph given/why not?: SCD's
--- NOTE | 2016-05-09 14:08 | Discharge Summary ---
Discharge Summary Admission Date: May 08, 2016 at 18:36 Discharge Date: May 09, 2016 Discharge Disposition: Home Principal Diagnosis: Acute Asthma Exacerbation Chest Pain r/o ACS Medication Reconciliation New Medications: Methylprednisolone (Medrol Dosepak) 4 Mg Jordan 1 EA PO DAILY, #1 PKT Continued Medications: Albuterol Hfa (Ventolin Hfa) 200 Puffs/78559 Mcg Aers 2 PUFFS INH Q6H PRN for SOB/Wheezing Albuterol Sulf (Proventil 0.083% 2.5MG/3ML) 2.5 Mg/3 Ml Nebu 2.5 MG INH QID PRN for SOB/Wheezing Clonidine Hcl (Catapres) 0.3 Mg Tab 0.3 MG PO BID Fluticasone Prop/Salmeterol (Advair Diskus 500/50 60 Dose) 1 Ea Aerp 1 PUFF INH BID Gabapentin (Neurontin) 300 Mg Cap 600 MG PO TID Losartan Potassium (Cozaar) 100 Mg Tab 100 MG PO QAM Multivitamin (Multivitamin) Tab 1 TAB PO QAM Polyethylene Glycol 3350 (Miralax) 1 Pow Pow 17 GM PO DAILY PRN for Constipation Ranitidine (Zantac) 150 Mg Tab 150 MG PO BID Sertraline (Zoloft) 100 Mg Tab 100 MG PO QAM Trazodone Hcl (Trazodone) 50 Mg Tab 50 MG PO HS, TAB Admission Information HPI (per Admitting provider): This is a 56 year old female with PMH of asthma, hypertension, prediabetes, borderline hyperlipidemia per patient, who presents to the ED with chest pain and shortness of breath. Patient states she had 2 asthma exacerbations treated with steroids 2 months ago and 1 month ago. Symptoms initially improved then returned over past few weeks. She reports nasal congestion, dry cough, wheezing , SOB at rest and exertion. She states rescue nebs and inhalers are no longer helping. She also stopped Advair as she felt it was not helping. Breathing is now improved after neb given in ER. Patient reports chest pain intermittently over past 1 month described as stabbing from her back to her chest. She attributed this to anxiety. She also reports for past 2 weeks she has intermittent central chest pain described as cramping and soreness which radiates to her neck and left shoulder, which is worse with cough or straining for bowel movement. Denies association with exertion. Nitro in the ER did not affect the pain, but gave her a headache. Pain is now resolved but is feeling mildly nauseous. She reports dry mouth and states she feels dehydrated. She is eating normally but "not drinking enough". She had an episode of vomiting 2 days ago which resolved. Pt states her acid reflux symptoms have been uncontrolled recently. She was on Nexium in the past but was changed to Zantac due to insurance coverage. She has EGD and colonoscopy scheduled for next Saturday with Dr. Dawson. Pt states BP is running 180s- 200s systolic at home for past few days. She has been compliant with BP meds. She had chills/ sweats a few days ago. Denies fever, sore throat, swallowing difficulty, abdominal pain , diarrhea, urinary change, calf pain, edema, abnormal bleeding. Denies any cardiac history. Last echo and stress test in 2010 in [place] were unremarkable as per patient. Physical Exam (per Admitting): General Appearance: no apparent distress, + obese Head: normocephalic, atraumatic Eyes: normal inspection, PERRL, EOMI, sclerae normal ENT: hearing grossly normal, pharynx normal Neck: supple, trachea midline Respiratory/Chest: normal breath sounds, no respiratory distress, + wheezing (moderate expiratory wheezing), + pertinent finding (+ chest wall tenderness) Cardiovascular: regular rate, rhythm, no murmur Abdomen/GI: normal bowel sounds, soft, + pertinent finding (mild epigastric tenderness) Back: + pertinent finding (+ thoracic paraspinal muscle tenderness) Extremities/Musculoskelatal: normal inspection, no calf tenderness, no pedal edema Neurologic/Psych: alert, normal mood/affect, oriented x 3, + pertinent finding (grossly nonfocal) Skin: normal color, warm/dry, no rash (no rash on the chest) Hospital Course This is a 56 year old female with PMH of asthma and HTN presents with worsening shortness of breath and chest pain Acute Asthma Exacerbation * patient presented with shortness of breath * clinically much improved * lung exam is clear * eager to get home * nebulizers have helped * will switch IV solumedrol to medrol dosepak Chest Pain r/o ACS * doing well, clinically denies chest pain today * states that her chest pain was likely related to work she was doing at home * cardiac enzymes negative x 3 * echo reviewed - mild grade 1 diastolic dysfunction, normal LVEF * no specific changes on EKG * no significant findings on CXR * outpatient follow-up with PCP Uncontrolled Hypertension, improving * likely worsened with anxiety * would continue clonidine 0.3mg BID and Losartan 100mg daily * stopped Norvasc due to lower extremity edema in the past * outpatient follow-up with PCP Hypokalemia, resolved Prediabetes * Ha1c = 6.4% * improve diet as outpatient * outpatient f/u with PCP GERD * EGD next week with GI * PPI Depression/Anxiety * Continue home medications DVT ppx Lovenox d/c home with outpatient f/u with Dr. Hernandez on May 14 @ 11:10AM Total time spent on discharge = 35 minutes This includes examination of the patient, discharge planning, medication reconciliation, and communication with other providers. Discharge Instructions Please follow-up with Dr. Hernandez on May 14 @ 11:10AM * You will be on a medrol dosepak - use as directed * please have your primary care doctor check your lipid panel * Primary care should recheck blood pressure
[2016-06-22] MEDS ORDERED: TRAZ50TA35 PO (11:50)
[2016-06-22] MEDS ORDERED: OMEP20TA14 PO (11:50)
== END 2016-05-09 14:33 | disposition home or self-care (01) ==
LOC: ENRESERVDT → ENRESERVTM → EDBD 16:50 → C.EDA 16:51 → C.2T 18:36 → MERGE 18:36
PROVIDERS: ADMIT Internal Medicine; ATTEND Family Medicine
DX: J45.901 Unspecified asthma with (acute) exacerbation (principal); R07.89 Other chest pain; E87.6 Hypokalemia; I10 Essential (primary) hypertension; K21.9 Gastro-esophageal reflux disease without esophagitis; R73.03 Prediabetes; F32.9 Major depressive disorder, single episode, unspecified; E78.00 Pure hypercholesterolemia, unspecified; Z90.710 Acquired absence of both cervix and uterus; Z91.040 Latex allergy status; Z91.012 Allergy to eggs; Z91.011 Allergy to milk products

== ENCOUNTER → 2016-07-25 | Day surgery (SDC) | payer OTHER ==
[2016-07-17 14:32] VITALS: Ht 151.1 cm; Wt 103.6 kg
[~2016-07-25] VITALS: Ht 151.1 cm; Wt 103.6 kg
[~2016-07-25] MED LIST changes: +BUSP-8 PO; -DEXT5TAB PO; +LIDOCAINE HCL 2% 2 ML VIAL (20MG/ML) ONE; +LPT40 PO; +METF-382 PO; +MIDAZOLAM HCL 1 MG/ML 2ML VIAL ONE; +OMEP20TA14 PO; +OMEP40CA41 PO; +ONDANSETRON INJ 2 MG/ML 2 ML VIAL IV PRN; +ONDANSETRON INJ 2 MG/ML 2 ML VIAL ONE; +OXYC1TAB3 PO; +PLV75 PO; +PROPOFOL IV EMULSION 10 MG/ML 20 ML VIAL IV ONE; +TRAZ50TA35 PO; -ZNTT/150 PO
--- NOTE | 2016-07-25 08:23 | Endo History and Physical ---
History & Physical Date of Service: Jul 25, 2016. Chief Complaint: heartburn,screening Referring Physician: Dr. Navya Dozier History of Present Illness History of GERD / Intermitant solid food dysphagia for egd today. Also referred for CRC screening, last colonoscopy in 1991 (negative)./ Past Surgical History Hx Cardiac Surgery: No Hx Internal Defibrillator: No Hx Pacemaker: No Hx Abdominal Surgery: Yes (JERRELL BSO) Hx of Implantable Prosthesis: No Hx Post-Op Nausea and Vomiting: No Hx Cancer Surgery: Yes (LEFT SHOULDER SKIN EXCISION) Hx Thoracic Surgery: No Hx Orthopedic: No Hx Urinary Tract Surgery: No Family History Colon CA, IBD Social History Smoking Status: Never Smoker Hx Substance Use: No Hx Alcohol Use: No Allergies Coded Allergies: Latex1 -Allergic Contact Dermititis (Verified Allergy, Mild, ITCHING, REDNESS, BLISTER, 07/25/16) Aspirin (Verified Allergy, Unknown, MOUTH ULCERS AND BLISTERS IF TAKEN DAILY, 07/17/16) Eggs or Egg-derived Products (Verified Allergy, Unknown, NAUSEA/VOMITING, 07/17/16) Hydralazine (Verified Allergy, Unknown, SEVERE MUSCLE PAIN AND WEAKNESS, ) Milk (Verified Allergy, Unknown, RASH, 07/17/16) Rosuvastatin (Verified Allergy, Unknown, MUSCLE PAIN, 07/17/16) Hydrochlorothiazide (Verified Adverse Reaction, Intermediate, HIVES, ) Uncoded Allergies: BANANAS (Allergy, Unknown, MOUTH SORES/BLISTERS, 06/22/16) DARVOCET (Allergy, Unknown, hives, 06/22/16) Current Medications Reported Home Medications Medications Dose Route/Sig Max Daily Dose Days Date Category Trazodone (Trazodone HCl) 50 Mg Tab 50 Mg PO HS PRN 06/22/16 Reported Prilosec Otc (Omeprazole Magnesium) 20 Mg Tab 20 Mg PO DAILY PRN 06/22/16 Reported Multivitamin (Multivitamins) Tab 1 Tab PO QAM 05/08/16 Reported Proventil 0.083% 2.5MG/3ML (Albuterol Sulf) 2.5 Mg/3 Ml Nebu 2.5 Mg INH QID PRN 05/08/16 Reported Ventolin Hfa (Albuterol) 200 Puffs/59762 Mcg Aers 2 Puffs INH Q6H PRN 05/08/16 Reported Miralax (Polyethylene Glycol 3350) 1 Pow Pow 17 Gm PO DAILY PRN 05/08/16 Reported Advair Diskus 500/50 60 Dose (Fluticasone Prop/Salmeterol) 1 Ea Aerp 1 Puff INH BID 05/08/16 Reported Catapres (Clonidine Hcl) 0.3 Mg Tab 0.3 Mg PO BID 05/08/16 Reported Zoloft (Sertraline HCl) 100 Mg Tab 100 Mg PO QAM 05/08/16 Reported Cozaar (Losartan Potassium) 100 Mg Tab 100 Mg PO QAM 05/08/16 Reported Neurontin (Gabapentin) 300 Mg Cap 600 Mg PO TID 05/08/16 Reported Vital Signs Weight (Kilograms): 103.64 Height (Feet): 4 Height (Inches): 11.5 Date Time Temp Pulse Resp B/P Pulse Ox O2 Delivery O2 Flow Rate FiO2 07/25/16 08:15 36.7 78 18 178/87 95 Room Air Physical Exam General Appearance: no apparent distress Respiratory/Chest: Auscultation: deminished air movement Cardiovascular: Heart Auscultation: RRR Abdomen: Inspection & Palpation: soft Assessment and Plan EGD with dilation and colonoscopy today. We have discussed the risks to include bleeding, infection, perforation, pain, and missed polyps.
--- NOTE | 2016-07-25 09:13 | Discharge Instructions ---
Endoscopy Patient Instructions Date / Procedure(s) Performed Jul 25, 2016. Colonoscopy, EGD Allergy Information Coded Allergies: Latex1 -Allergic Contact Dermititis (Verified Allergy, Mild, ITCHING, REDNESS, BLISTER, 07/25/16) Aspirin (Verified Allergy, Unknown, MOUTH ULCERS AND BLISTERS IF TAKEN DAILY, 07/17/16) Eggs or Egg-derived Products (Verified Allergy, Unknown, NAUSEA/VOMITING, 07/17/16) Hydralazine (Verified Allergy, Unknown, SEVERE MUSCLE PAIN AND WEAKNESS, ) Milk (Verified Allergy, Unknown, RASH, 07/17/16) Rosuvastatin (Verified Allergy, Unknown, MUSCLE PAIN, 07/17/16) Hydrochlorothiazide (Verified Adverse Reaction, Intermediate, HIVES, ) Uncoded Allergies: BANANAS (Allergy, Unknown, MOUTH SORES/BLISTERS, 06/22/16) DARVOCET (Allergy, Unknown, hives, 06/22/16) Discharge Date / Findings Jul 25, 2016. Normal esophagus mild gastritis large hemorrhoids Medication Instructions Stopped Medication(s): stopped MVI week ago Restart Stopped Medication(s): Reported Home Medications Medications Dose Route/Sig Max Daily Dose Days Date Category Trazodone (Trazodone HCl) 50 Mg Tab 50 Mg PO HS PRN 06/22/16 Reported Prilosec Otc (Omeprazole Magnesium) 20 Mg Tab 20 Mg PO DAILY PRN 06/22/16 Reported Multivitamin (Multivitamins) Tab 1 Tab PO QAM 05/08/16 Reported Proventil 0.083% 2.5MG/3ML (Albuterol Sulf) 2.5 Mg/3 Ml Nebu 2.5 Mg INH QID PRN 05/08/16 Reported Ventolin Hfa (Albuterol) 200 Puffs/56454 Mcg Aers 2 Puffs INH Q6H PRN 05/08/16 Reported Miralax (Polyethylene Glycol 3350) 1 Pow Pow 17 Gm PO DAILY PRN 05/08/16 Reported Advair Diskus 500/50 60 Dose (Fluticasone Prop/Salmeterol) 1 Ea Aerp 1 Puff INH BID 05/08/16 Reported Catapres (Clonidine Hcl) 0.3 Mg Tab 0.3 Mg PO BID 05/08/16 Reported Zoloft (Sertraline HCl) 100 Mg Tab 100 Mg PO QAM 05/08/16 Reported Cozaar (Losartan Potassium) 100 Mg Tab 100 Mg PO QAM 05/08/16 Reported Neurontin (Gabapentin) 300 Mg Cap 600 Mg PO TID 05/08/16 Reported Provider Instructions Activity Restrictions - No exercising or heavy lifting for 24 hours. - Do not drink alcohol the day of the procedure. - Do not drive a car or operate machinery until the day after the procedure. - Do not make any important decisions or sign important papers in 24 hours after the procedure. Following Day: - Return to full activity which may include returning to work/school. Diet Start your diet with liquids and light foods (jello, soup, juice, toast). Then eat your usual diet if not nauseated. Treatment For Common After Affects For mild abdominal pain, bloating, or excessive gas: - Rest - Eat lightly - Lie on right side Follow-Up Information Follow-up with Dr. Navya Dozier as scheduled Await pathology results Repeat colonoscopy in 1 years (suboptimal preparation) Anesthesia Information What You Should Know You have had a procedure that required some medicine to reduce anxiety and discomfort. This treatment is called moderate sedation. After receiving the treatment, you may be sleepy, but you will be able to breathe on your own. The effects of the treatment may last for several hours. Follow these instructions along with Activity/Diet recommendations noted above: * Do NOT do anything where dizziness or clumsiness would be dangerous. * Rest quietly at home today, then you can be up and about tomorrow. * Have a responsible person stay with you the rest of today. * You may have had an I.V. today. If so, you may take the dressing off later today. Recommendations Call your doctor if: * Trouble breathing * Continuous vomiting for more than 24 hours * Temperature above 101 degrees * Severe abdominal pain or bloating * Pain not relieved by pain medicine ordered * There is increased drainage or redness from any incision * A large amount of rectal bleeding greater than 2-3 tablespoons. (If you had a polyp/s removed or have hemorrhoids, a small amount of blood - from the rectum is to be expected.) * You have any unanswered questions or concerns. IN THE EVENT OF A SERIOUS EMERGENCY, GO TO THE NEAREST EMERGENCY ROOM Your discharge instructions were prepared by provider Xuan Dawson. Patient Instructions Signature Page Gabi Alfaro Patient (or Guardian) Signature/Date: I have read and understand the instructions given to me by my caregivers. Caregiver/RN/Doctor Signature/Date: The above-named patient and/or guardian has received patient instructions on this date. + Original Patient Signature Page (only) stays with chart. Please make copy for patient.
--- NOTE | 2016-07-25 09:17 | GI REPORT ---
Procedure Date: 07/25/2016 8:27 AM Procedure: Upper GI endoscopy Indications: Epigastric abdominal pain, Dysphagia Medicines: Monitored Anesthesia Care Complications: No immediate complications. Estimated blood loss: Minimal. Estimated Blood Loss: Estimated blood loss was minimal. Procedure: Pre-Anesthesia Assessment: - Prior to the procedure, a History and Physical was performed, and patient medications, allergies and sensitivities were reviewed. The patient's tolerance of previous anesthesia was reviewed. - The risks and benefits of the procedure and the sedation options and risks were discussed with the patient. All questions were answered and informed consent was obtained. - Patient identification and proposed procedure were verified prior to the procedure by the physician, the nurse and the tax technician. The procedure was verified in the procedure room. - Pre-procedure physical examination revealed no contraindications to sedation. - ASA Grade Assessment: III - A patient with severe systemic disease. - After reviewing the risks and benefits, the patient was deemed in satisfactory condition to undergo the procedure. - The anesthesia plan was to use monitored anesthesia care (MAC). - Immediately prior to administration of medications, the patient was re-assessed for adequacy to receive sedatives. - The heart rate, respiratory rate, oxygen saturations, blood pressure, adequacy of pulmonary ventilation, and response to care were monitored throughout the procedure. - The physical status of the patient was re-assessed after the procedure. After obtaining informed consent, the endoscope was passed under direct vision. Throughout the procedure, the patient's blood pressure, pulse, and oxygen saturations were monitored continuously. The On-site loaner was introduced through the mouth, and advanced to the second part of duodenum. The upper GI endoscopy was accomplished without difficulty. The patient tolerated the procedure well. Findings: No endoscopic abnormality was evident in the esophagus to explain the patient's complaint of dysphagia. It was decided, however, to proceed with dilation of the entire esophagus. A guidewire was placed and the scope was withdrawn. Dilation was performed with a Savary dilator with mild resistance at 54 Fr. The endoscope was then reinserted to evaluate the success of the procedure. Estimated blood loss was minimal. The Z-line was regular and was found 38 cm from the incisors. Diffuse mild inflammation characterized by erythema and granularity was found in the entire examined stomach. Biopsies were taken with a cold forceps for histology. Estimated blood loss was minimal. The examined duodenum was normal. Biopsies were taken with a cold forceps for histology. Estimated blood loss was minimal. Impression: - No endoscopic esophageal abnormality to explain patient's dysphagia. Esophagus dilated. Dilated. - Z-line regular, 38 cm from the incisors. - Gastritis. Biopsied. - Normal examined duodenum. Biopsied. Recommendation: - Perform a colonoscopy today. - Await pathology results. - Observe patient's clinical course following today's procedure with therapeutic intervention. Xuan Dawson D.O. Xuan Dawson, 07/25/2016 9:16:57 AM This report has been signed electronically. Note Initiated On: 07/25/2016 8:27 AM I attest to the content of the Intraoperative Record and orders documented therein, exceptions below
--- NOTE | 2016-07-25 09:19 | GI REPORT ---
Procedure Date: 07/25/2016 8:43 AM Procedure: Colonoscopy Indications: Screening for colorectal malignant neoplasm Medicines: Monitored Anesthesia Care Complications: No immediate complications. Estimated blood loss: Minimal. Estimated Blood Loss: Estimated blood loss was minimal. Procedure: Pre-Anesthesia Assessment: - Prior to the procedure, a History and Physical was performed, and patient medications, allergies and sensitivities were reviewed. The patient's tolerance of previous anesthesia was reviewed. - The risks and benefits of the procedure and the sedation options and risks were discussed with the patient. All questions were answered and informed consent was obtained. - Patient identification and proposed procedure were verified prior to the procedure by the physician, the nurse and the hospital clerk. The procedure was verified in the procedure room. - Pre-procedure physical examination revealed no contraindications to sedation. - ASA Grade Assessment: III - A patient with severe systemic disease. - After reviewing the risks and benefits, the patient was deemed in satisfactory condition to undergo the procedure. - The anesthesia plan was to use monitored anesthesia care (MAC). - Immediately prior to administration of medications, the patient was re-assessed for adequacy to receive sedatives. - The heart rate, respiratory rate, oxygen saturations, blood pressure, adequacy of pulmonary ventilation, and response to care were monitored throughout the procedure. - The physical status of the patient was re-assessed after the procedure. After I obtained informed consent, the scope was passed under direct vision. Throughout the procedure, the patient's blood pressure, pulse, and oxygen saturations were monitored continuously. The scope was introduced through the anus and advanced to the cecum, identified by appendiceal orifice and ileocecal valve. The scope was introduced through the and advanced to. The colonoscopy was somewhat difficult due to the patient's body habitus. Successful completion of the procedure was aided by withdrawing the scope and replacing with the pediatric colonoscope. The patient tolerated the procedure well. The quality of the bowel preparation was poor. Findings: The digital rectal exam findings include non-thrombosed external hemorrhoids. Pertinent negatives include normal sphincter tone. Internal hemorrhoids were found during endoscopy. The hemorrhoids were moderate. The exam was otherwise without abnormality. Impression: - Non-thrombosed external hemorrhoids found on digital rectal exam. - Internal hemorrhoids. - The examination was otherwise normal. Recommendation: - Discharge patient to home (ambulatory). - Advance diet as tolerated today. - Repeat colonoscopy in 1 year because the bowel preparation was suboptimal. - Return to GI office PRN. Xuan Dawson D.O. Xuan Dawson, 07/25/2016 9:19:04 AM This report has been signed electronically. Note Initiated On: 07/25/2016 8:43 AM I attest to the content of the Intraoperative Record and orders documented therein, exceptions below
--- NOTE | 2016-07-25 09:25 | Anesthesiology Progress Note ---
Anesthesia Post Op Note Date & Time Jul 25, 2016 at 09:24 Vital Signs Pain Intensity: 0 Vital Signs Past 12 Hours Date Time Temp Pulse Resp B/P Pulse Ox O2 Delivery O2 Flow Rate FiO2 07/25/16 09:07 79 16 110/61 95 Room Air 07/25/16 08:15 36.7 78 18 178/87 95 Room Air Notes Mental Status: alert / awake / arousable, participated in evaluation Pt Amnestic to Procedure: Yes Nausea / Vomiting: adequately controlled Pain: adequately controlled Airway Patency, RR, SpO2: stable & adequate BP & HR: stable & adequate Hydration State: stable & adequate Anesthetic Complications: no major complications apparent Pt doing well.
[2016-07-25 09:49] VITALS: BP 147/81; PULSE 74; O2SAT 96
== END | disposition home or self-care (01) ==
LOC: C.GI 07:47
PROVIDERS: ATTEND Internal Medicine Gastroenterology
PROC: 0WJP8ZZ Inspection of Gastrointestinal Tract, Via Natural or Artificial Opening Endoscopic Approach (ICD-10-PCS; principal; 2016-07-25 08:30)
DX: Z12.11 Encounter for screening for malignant neoplasm of colon (principal); K64.4 Residual hemorrhoidal skin tags; K64.8 Other hemorrhoids; K29.70 Gastritis, unspecified, without bleeding; R13.10 Dysphagia, unspecified; K21.9 Gastro-esophageal reflux disease without esophagitis; J45.909 Unspecified asthma, uncomplicated

== ENCOUNTER 2017-01-31 09:43 | Inpatient (IN) | payer OTHER ==
[~2017-01-31] VITALS: Ht 149.9 cm; Wt 102.0 kg
[~2017-01-31 09:43] MED LIST changes: -BUSP-8 PO; -LIDOCAINE HCL 2% 2 ML VIAL (20MG/ML) ONE; -LPT40 PO; -METF-382 PO; -MIDAZOLAM HCL 1 MG/ML 2ML VIAL ONE; -OMEP40CA41 PO; -ONDANSETRON INJ 2 MG/ML 2 ML VIAL IV PRN; -ONDANSETRON INJ 2 MG/ML 2 ML VIAL ONE; -OXYC1TAB3 PO; -PLV75 PO; -PROPOFOL IV EMULSION 10 MG/ML 20 ML VIAL IV ONE
[2017-01-31] MEDS ORDERED: SODIUM CHLORIDE 0.9% 1000ML 1,000 ML IV SCH (10:04)
[2017-01-31 10:39] LABS: BASO % 0.4 %; BASO ABS # 0.05 K/uL (0-0.2); COMPLETE YES; EOS % 1.5 %; HEMATOCRIT 28.8 % (37-47); IG% 0.6 %; LYMPH % 16.4 %; LYMPH ABS # 2.07 K/uL (1.2-3.4); MEAN CELL VOLUME 83.2 fL (80-100); MEAN CORPUSCULAR HEMOGLOBIN 27.2 pg (25-34); MEAN CORPUSCULAR HGB CONC 32.6 g/dl (32-36); MEAN PLATELET VOLUME 9.9 fL (7.4-10.4); MONO % 7.4 %; NEUT % 73.7 %; PLATELET COUNT 292 K/uL (130-400); RED BLOOD COUNT 3.46 M/uL (4.2-5.4); WHITE BLOOD COUNT 12.62 K/uL (4.8-10.8)
[2017-01-31 10:42] LABS: PARTIAL THROMBOPLASTIN RATIO 1.1; PROTHROMBIN TIME (PATIENT) 10.2 SECONDS (9.0-12.0)
--- NOTE | 2017-01-31 10:44 | DIAGNOSTIC IMAGING REPORT ---
HEAD CT NONCONTRAST CT DOSE: 729.78 mGycm HISTORY: Slurred speech. Stroke TECHNIQUE: Multiaxial CT images of the head were performed without the use of intravenous contrast. Automated exposure control was utilized for this study. A dose lowering technique was utilized adhering to the principles of ALARA. Comparison: None. Findings: The paranasal sinuses and mastoid air cells are clear. The calvarium and skull base are intact. The ventricles and sulci are within normal limits. There is no mass, hematoma, midline shift, or acute infarct. Impression: No acute intracranial abnormality. Electronically signed by: Jose Valle M.D. 01/31/2017 10:43 AM Dictated Date/Time: 01/31/2017 10:40 AM
[2017-01-31 10:51] LABS: BUN/CREATININE RATIO 20.3 (10-20); CALCIUM 8.7 mg/dl (8.5-10.1); CREATININE 1.2 mg/dl (0.60-1.20); POTASSIUM 3.5 mmol/L (3.5-5.1)
[2017-01-31 10:55] LABS: CKMB/CK RATIO 0.7 (0-3.0)
--- NOTE | 2017-01-31 11:00 | EMERGENCY ROOM VISIT NOTE ---
History Report prepared by Damion: Anil Gracia Under the Supervision of: Dr. Jasen Flores M.D. First contact with patient: 10:00 Chief Complaint: STROKE SYMPTOMS Stated Complaint: SLURRED SPEECH-RECENT SURG. IN [place] X 2 DAYS History of Present Illness The patient is a 56 year old female who presents to the Emergency Room with waxing and waning slurred speech that started yesterday. The patient had breast reduction surgery 2 days ago at [facility] and was discharged yesterday. The patient's daughter says that she noticed that the patient had some slurred speech in the hospital yesterday, and worsened when she got home last evening. The patient's speech was noted to be getting better last night, but did not completely go away, but around an hour ago, her speech was noted to be getting worse again. The patient's daughter called the doctor that performed the surgery , and the doctor was concerned and said that the patient shoulder come here. The patient says that she currently feels fine but a bit tired. The patient's daughter notes that the patient's current right mouth slowness is not normal. The patient adds that she was sent home with Oxycodone, but has not been using it, and has instead been using Tylenol. Pt denies LOC, headache, fevers, chills , diaphoresis, visual changes, neck pain, chest pain, breathing difficulties, nausea, vomiting, abdominal pain, back pain, melena, hematochezia, urinary symptoms, numbness, weakness, lymphadenopathy, rash, or other complaints. Source of History: patient, family (daughter) Onset: Yesterday Position: other (global - speech slurring) Quality: other (had breast reduction surgery 2 days ago) Timing: waxes/wanes Associated Symptoms: + fatigue Note: Associated symptoms: Right side of mouth is slow. Review of Systems See HPI for pertinent positives and negatives. A total of ten systems were reviewed and were otherwise negative. Past Medical & Surgical Medical Problems: (1) Anxiety (2) Asthma (3) Borderline high cholesterol (4) Chest pain (5) Depression (6) GERD (gastroesophageal reflux disease) (7) Hypertension (8) Prediabetes Surgical Problems: (1) History of hysterectomy Family History AICD (automatic internal cardiac defibrillator) MOTHER Social History Smoking Status: Never Smoker Marital Status: Occupation Status: disabled Current/Historical Medications Scheduled Buspirone Hcl (Buspirone Hcl), 10 MG PO BID Clonidine Hcl (Catapres), 0.3 MG PO BID Fluticasone Prop/Salmeterol (Advair Diskus 500/50 60 Dose), 1 PUFF INH BID Gabapentin (Neurontin), 0 PO UD Losartan Potassium (Cozaar), 100 MG PO QAM Metformin Ext Rel (Glucophage Ext Rel), 500 MG PO DAILY Multivitamin (Multivitamin), 1 TAB PO QAM Omeprazole (Prilosec), 40 MG PO DAILY Sertraline (Zoloft), 100 MG PO QAM Scheduled PRN Albuterol Hfa (Ventolin Hfa), 2 PUFFS INH Q6H PRN for SOB/Wheezing Albuterol Sulf (Proventil 0.083% 2.5MG/3ML), 2.5 MG INH Q6H PRN for SOB/Wheezing Oxycodone Ir (Roxicodone Ir), 1-2 TAB PO Q4H PRN for Severe Pain Polyethylene Glycol 3350 (Miralax), 17 GM PO DAILY PRN for Constipation Allergies Coded Allergies: Latex1 -Allergic Contact Dermititis (Verified Allergy, Mild, ITCHING, REDNESS, BLISTER, 01/31/17) Acetaminophen (Verified Allergy, Unknown, HIVES, 01/31/17) Aspirin (Verified Allergy, Unknown, MOUTH ULCERS AND BLISTERS IF TAKEN DAILY, 01/31/17) Eggs or Egg-derived Products (Verified Allergy, Unknown, NAUSEA/VOMITING, 01/31/17) Hydralazine (Verified Allergy, Unknown, SEVERE MUSCLE PAIN AND WEAKNESS, 01/31/17) Milk (Verified Allergy, Unknown, RASH, 01/31/17) Propoxyphene (Verified Allergy, Unknown, HIVES, 01/31/17) Rosuvastatin (Verified Allergy, Unknown, MUSCLE PAIN, 01/31/17) Hydrochlorothiazide (Verified Adverse Reaction, Intermediate, HIVES, 01/31) Banana (Verified Adverse Reaction, Unknown, MOUTH SORES/BLISTERS, 01/31/17 ) Physical Exam Vital Signs Date Time Temp Pulse Resp B/P (MAP) Pulse Ox O2 Delivery O2 Flow Rate FiO2 01/31/17 10:58 88 22 135/69 93 Room Air 01/31/17 10:32 88 10/12/17 10:05 93 Room Air 01/31/17 09:48 37.4 93 20 129/75 95 Room Air Physical Exam GENERAL: Awake, alert, well appearing, no distress HENT: Normocephalic, atraumatic. TM's normal. Oropharynx unremarkable. EYES: PERRL. EOMI. Normal conjunctiva. Sclera non-icteric. NECK: Supple. No nuchal rigidity. FROM. No JVD or bruit. RESPIRATORY: CTA CARDIAC: RRR. No murmur. ABDOMEN: Soft, non distended. No tenderness to palpation. No rebound or guarding. No masses. RECTAL: Deferred. MUSCULOSKELETAL: Unremarkable. No edema. Bruising in both breasts, no erythema. Gross motor strength symmetric. NEURO: Cranial nerves 2-12 grossly intact except slight slurring of speech and weakness of right lower face. Forehead is normal. Normal sensorium. No sensory or motor deficits noted. Speech normal. No pronator drift. SKIN: Bruising in both breasts, no erythema. Wounds CDI. No rash or jaundice noted. LYMPH: No adenopathy. Medical Decision & Procedures ER Provider Diagnostic Interpretation: CT: Radiology results as stated below per my review and radiologist interpretation HEAD CT NONCONTRAST CT DOSE: 729.78 mGycm HISTORY: Slurred speech. Stroke TECHNIQUE: Multiaxial CT images of the head were performed without the use of intravenous contrast. Automated exposure control was utilized for this study. A dose lowering technique was utilized adhering to the principles of ALARA. Comparison: None. Findings: The paranasal sinuses and mastoid air cells are clear. The calvarium and skull base are intact. The ventricles and sulci are within normal limits. There is no mass, hematoma, midline shift, or acute infarct. Impression: No acute intracranial abnormality. Electronically signed by: Jose Valle M.D. 01/31/2017 10:43 AM Dictated Date/Time: 01/31/2017 10:40 AM Laboratory Results 01/31/17 10:10 Red Blood Count 3.46, Mean Corpuscular Volume 83.2, Mean Corpuscular Hemoglobin 27.2, Mean Corpuscular Hemoglobin Concent 32.6, Mean Platelet Volume 9.9, Neutrophils (%) (Auto) 73.7, Lymphocytes (%) (Auto) 16.4, Monocytes (%) (Auto) 7.4, Eosinophils (%) (Auto) 1.5, Basophils (%) (Auto) 0.4, Neutrophils # (Auto) 9.30, Lymphocytes # (Auto) 2.07, Monocytes # (Auto) 0.94, Eosinophils # (Auto) 0.19, Basophils # (Auto) 0.05 01/31/17 10:10 Test 01/31/17 10:10 01/31/17 10:13 White Blood Count 12.62 K/uL (4.8-10.8) Red Blood Count 3.46 M/uL (4.2-5.4) Hemoglobin 9.4 g/dL (12.0-16.0) Hematocrit 28.8 % (37-47) Mean Corpuscular Volume 83.2 fL (80-100) Mean Corpuscular Hemoglobin 27.2 pg (25-34) Mean Corpuscular Hemoglobin Concent 32.6 g/dl (32-36) Platelet Count 292 K/uL (130-400) Mean Platelet Volume 9.9 fL (7.4-10.4) Neutrophils (%) (Auto) 73.7 % Lymphocytes (%) (Auto) 16.4 % Monocytes (%) (Auto) 7.4 % Eosinophils (%) (Auto) 1.5 % Basophils (%) (Auto) 0.4 % Neutrophils # (Auto) 9.30 K/uL (1.4-6.5) Lymphocytes # (Auto) 2.07 K/uL (1.2-3.4) Monocytes # (Auto) 0.94 K/uL (0.11-0.59) Eosinophils # (Auto) 0.19 K/uL (0-0.5) Basophils # (Auto) 0.05 K/uL (0-0.2) RDW Standard Deviation 48.0 fL (36.4-46.3) RDW Coefficient of Variation 15.8 % (11.5-14.5) Immature Granulocyte % (Auto) 0.6 % Immature Granulocyte # (Auto) 0.07 K/uL (0.00-0.02) Prothrombin Time 10.2 SECONDS (9.0-12.0) Prothromb Time International Ratio 1.0 (0.9-1.1) Activated Partial Thromboplast Time 27.3 SECONDS (21.0-31.0) Partial Thromboplastin Ratio 1.1 Anion Gap 6.0 mmol/L (3-11) Est Creatinine Clear Calc Drug Dose 56.8 ml/min Estimated GFR () 59.3 Estimated GFR (Non- 51.2 BUN/Creatinine Ratio 20.3 (10-20) Calcium Level 8.7 mg/dl (8.5-10.1) Total Creatine Kinase 182 U/L (26-192) Creatine Kinase MB 1.3 ng/ml (0.5-3.6) Creatine Kinase MB Ratio 0.7 (0-3.0) Troponin I 0.032 ng/ml (0-0.045) Hepatitis C Antibody Screen NEG (NEG) Bedside Prothrombin Time INR 1.1 (0.9-1.1) Laboratory results reviewed by me Medications Administered Medications (Trade) Dose Ordered Sig/Yola Route Start Time Stop Time Status Last Admin Dose Admin Sodium Chloride 1,000 ml @ 50 mls/hr Q20H IV 01/31/17 10:04 01/31/17 13:21 DC 01/31/17 10:46 50 MLS/HR ECG Indication: other (speech slurring) Rate (beats per minute): 90 Rhythm: normal sinus Findings: no acute ischemic change, other (nonspecific ST) ED Course 1003: The patient was evaluated in room A4B. A complete history and physical exam was performed. 1004: Ordered NSS 1000 ml @ 50 mls/hr IV. 1103: Upon reexamination, the patient was stable. I discussed the test results and treatment plan with her. She expressed understanding and agreement with the treatment plan. The patient will be evaluated for further management. 1111: I discussed the patient with Cornelia Tay - she will evaluate the patient for further treatment. Medical Decision Triage Nursing notes reviewed. The patient's presentation and history were concerning for slurred speech. Etiologies such as CVA, TIA metabolic, infection, hypo/hyperglycemia, electrolyte abnormalities, cardiac sources, intracerebral event, toxicologic, neurologic, as well as others were entertained. The patient was evaluated. She had some slurring of her speech and there was some weakness in the lower right facial muscles. There was forehead sparing. She had no other neurologic findings. She had blood work obtained. She had a slight leukocytosis and mild anemia. Lites unremarkable. He patient underwent CT imaging and this was negative. The patient is allergic to aspirin. Her symptoms are about 24 hours old. Given the recent surgery and strokelike symptoms further evaluation and management in the hospital will be necessary. The patient was made with internal medicine. The patient was evaluated for further management. The patient is not a candidate for TPA. Medication Reconcilliation Current Medication List: was personally reviewed by me Blood Pressure Screening Patient's blood pressure: Elevated blood pressure Referred to hospitalist. Consults Time Called: 1108 Consulting Physician: Cornelia Tay Returned Call: 1111 I discussed the patient with Cornelia Tay - she will evaluate the patient for further treatment. Impression Primary Impression: Slurred speech Additional Impression: Facial droop Scribe Attestation The scribe's documentation has been prepared under my direction and personally reviewed by me in its entirety. I confirm that the note above accurately reflects all work, treatment, procedures, and medical decision making performed by me. Departure Information Dispostion Being Evaluated By Hospitalist Referrals No Doctor, Assigned (PCP) Patient Instructions My [facility] Problem Qualifiers
--- NOTE | 2017-01-31 11:47 | History and Physical ---
History & Physical Date & Time of Service: Jan 31, 2017 at 11:47 . Chief Complaint: slurred speech, confusion . Primary Care Physician: Navya Henson D.O. . History of Present Illness Source: patient, family, clinic records, hospital records 56-year-old female followed by Dr. Navya Henson for Family Medicine. History of hypertension, diabetes mellitus type 2, dyslipidemia, and other problems noted below. Bilateral breast reduction surgery performed at [facility] by Dr. Karimi 2 days prior to admission. Patient was discharged to home yesterday around noon. Daughter noticed slurred speech, confusion, and poor and coordination when they arrived at her home. Symptoms persisted, so patient was brought to the ED today for evaluation. No headache. No diplopia. No dysphagia. Ambulating, but a bit unsteady. Has only taken 1 or 2 doses of oxycodone since returning home. No alcohol consumption. . Past Medical/Surgical History Chronic and Resolved Medical Problems: (1) Anxiety Status: Chronic (2) Asthma Status: Chronic (3) Borderline high cholesterol Status: Chronic (4) Depression Status: Chronic (5) Diabetes mellitus, type 2 Status: Chronic (6) Dyslipidemia Status: Chronic (7) GERD (gastroesophageal reflux disease) Status: Chronic (8) Hypertension Status: Chronic Surgical Problems: (1) History of hysterectomy Status: Chronic (2) Status post bilateral breast reduction Permanent Comment: [facility] [place] 01/29/17 Dr. Karimi Status: Chronic . Family History MOTHER Diabetes mellitus FATHER Colon cancer Social History Smoking Status: Never Smoker Alcohol Use: none Marital Status: Occupational Status: disabled Allergies Coded Allergies: Latex1 -Allergic Contact Dermititis (Verified Allergy, Mild, ITCHING, REDNESS, BLISTER, 01/31/17) Acetaminophen (Verified Allergy, Unknown, HIVES, 01/31/17) Aspirin (Verified Allergy, Unknown, MOUTH ULCERS AND BLISTERS IF TAKEN DAILY, 01/31/17) Eggs or Egg-derived Products (Verified Allergy, Unknown, NAUSEA/VOMITING, 01/31/17) Hydralazine (Verified Allergy, Unknown, SEVERE MUSCLE PAIN AND WEAKNESS, 01/31/17) Milk (Verified Allergy, Unknown, RASH, 01/31/17) Propoxyphene (Verified Allergy, Unknown, HIVES, 01/31/17) Rosuvastatin (Verified Allergy, Unknown, MUSCLE PAIN, 01/31/17) Hydrochlorothiazide (Verified Adverse Reaction, Intermediate, HIVES, 01/31) Banana (Verified Adverse Reaction, Unknown, MOUTH SORES/BLISTERS, 01/31/17 ) Home Medications Scheduled Buspirone Hcl (Buspirone Hcl), 10 MG PO BID Clonidine Hcl (Catapres), 0.3 MG PO BID Fluticasone Prop/Salmeterol (Advair Diskus 500/50 60 Dose), 1 PUFF INH BID Gabapentin (Neurontin), 0 PO UD Losartan Potassium (Cozaar), 100 MG PO QAM Metformin Ext Rel (Glucophage Ext Rel), 500 MG PO DAILY Multivitamin (Multivitamin), 1 TAB PO QAM Omeprazole (Prilosec), 40 MG PO DAILY Sertraline (Zoloft), 100 MG PO QAM Scheduled PRN Albuterol Hfa (Ventolin Hfa), 2 PUFFS INH Q6H PRN for SOB/Wheezing Albuterol Sulf (Proventil 0.083% 2.5MG/3ML), 2.5 MG INH Q6H PRN for SOB/Wheezing Oxycodone Ir (Roxicodone Ir), 1-2 TAB PO Q4H PRN for Severe Pain Polyethylene Glycol 3350 (Miralax), 17 GM PO DAILY PRN for Constipation Review of Systems Constitutional- no fever; no weight loss Eyes- no acute visual changes ENT- no sinus drainage; no pharyngitis Pulmonary- mild chronic cough, no wheezing, no shortness of breath Cardiac- no chest pain, no palpitations, no dependent edema GI- constipation; no nausea, no vomiting, no diarrhea, no melena, no hematochezia - no dysuria, no hematuria Musculoskeletal- hand pain Derm- no rashes, no new skin lesions, no changing skin lesions Hematologic- no unusual bruising, no unusual bleeding Lymphatics- no adenopathy Endocrine- no polyuria or polydipsia; blood sugars well-controlled Neuro- as noted above in HPI . Physical Exam Vital Signs Date Time Temp Pulse Resp B/P (MAP) Pulse Ox O2 Delivery O2 Flow Rate FiO2 01/31/17 10:58 88 22 135/69 93 Room Air 01/31/17 10:32 88 01/31/17 10:05 93 Room Air 01/31/17 09:48 37.4 93 20 129/75 95 Room Air General Appearance: no apparent distress, + obese Head: normocephalic, atraumatic Eyes: normal inspection, PERRL, EOMI, sclerae normal (eyelids and conjunctivae normal) ENT: hearing grossly normal, + pertinent finding (poor dentition, no upper teeth) Neck: supple, no adenopathy, thyroid normal, no JVD, no carotid bruits, trachea midline Respiratory/Chest: lungs clear, no respiratory distress, no accessory muscle use Cardiovascular: regular rate, rhythm, no edema, no gallop, no JVD, normal peripheral pulses, + systolic murmur (1/6 systolic murmur at base) Abdomen/GI: normal bowel sounds, non tender, soft, no organomegaly, no pulsatile mass Extremities/Musculoskelatal: no calf tenderness, normal capillary refill, no pedal edema Neurologic/Psych: + pertinent finding (somewhat somnolent, dysarthric, mild confusion, mild right facial droop, motor strength upper and lower extremities essentially 5/5, mild difficulty with finger to nose bilaterally; mild difficulty with [id number] bilaterally; patellar reflexes 1/2 bilaterally; plantar reflexes equivocally upgoing bilaterally; sensation to light touch lower extremities intact bilaterally) Skin: normal color, warm/dry, no rash Lymphatic: no adenopathy (cervical) Breasts: Status post bilateral breast reductions; incisions with surrounding ecchymosis, but no significant erythema or drainage; bilateral surgical drains draining serosanguineous fluid. Diagnostics Laboratory Results Results Past 24 Hours Test 01/31/17 10:00 01/31/17 10:10 01/31/17 10:13 Range/Units Bedside Glucose 127 70-90 mg/dl White Blood Count 12.62 4.8-10.8 K/uL Red Blood Count 3.46 4.2-5.4 M/uL Hemoglobin 9.4 12.0-16.0 g/dL Hematocrit 28.8 37-47 % Mean Corpuscular Volume 83.2 80-100 fL Mean Corpuscular Hemoglobin 27.2 25-34 pg Mean Corpuscular Hemoglobin Concent 32.6 32-36 g/dl Platelet Count 292 130-400 K/uL Mean Platelet Volume 9.9 7.4-10.4 fL Neutrophils (%) (Auto) 73.7 % Lymphocytes (%) (Auto) 16.4 % Monocytes (%) (Auto) 7.4 % Eosinophils (%) (Auto) 1.5 % Basophils (%) (Auto) 0.4 % Neutrophils # (Auto) 9.30 1.4-6.5 K/uL Lymphocytes # (Auto) 2.07 1.2-3.4 K/uL Monocytes # (Auto) 0.94 0.11-0.59 K/uL Eosinophils # (Auto) 0.19 0-0.5 K/uL Basophils # (Auto) 0.05 0-0.2 K/uL RDW Standard Deviation 48.0 36.4-46.3 fL RDW Coefficient of Variation 15.8 11.5-14.5 % Immature Granulocyte % (Auto) 0.6 % Immature Granulocyte # (Auto) 0.07 0.00-0.02 K/uL Prothrombin Time 10.2 9.0-12.0 SECONDS Prothromb Time International Ratio 1.0 0.9-1.1 Activated Partial Thromboplast Time 27.3 21.0-31.0 SECONDS Partial Thromboplastin Ratio 1.1 Sodium Level 138 136-145 mmol/L Potassium Level 3.5 3.5-5.1 mmol/L Chloride Level 106 98-107 mmol/L Carbon Dioxide Level 27 21-32 mmol/L Anion Gap 6.0 3-11 mmol/L Blood Urea Nitrogen 24 7-18 mg/dl Creatinine 1.20 0.60-1.20 mg/dl Est Creatinine Clear Calc Drug Dose 56.8 ml/min Estimated GFR () 59.3 Estimated GFR (Non- 51.2 BUN/Creatinine Ratio 20.3 10-20 Random Glucose 117 70-99 mg/dl Calcium Level 8.7 8.5-10.1 mg/dl Total Creatine Kinase 182 26-192 U/L Creatine Kinase MB 1.3 0.5-3.6 ng/ml Creatine Kinase MB Ratio 0.7 0-3.0 Troponin I 0.032 0-0.045 ng/ml Bedside Prothrombin Time INR 1.1 0.9-1.[address] NONCONTRAST Findings: The paranasal sinuses and mastoid air cells are clear. The calvarium and skull base are intact. The ventricles and sulci are within normal limits. There is no mass, hematoma, midline shift, or acute infarct. Impression: No acute intracranial abnormality. Electronically signed by: Jose Valle M.D. 01/31/2017 10:43 AM Dictated Date/Time: 01/31/2017 10:40 AM . EKG EKG performed at 09:58 demonstrated normal sinus rhythm at 90/minute, T-wave flattening in aVF, V2-V4. . Impression Assessment and Plan POSSIBLE STROKE Multiple risk factors for cerebrovascular disease. Onset of dysarthria, confusion, poor coordination about 20 hours prior to admission. Neurologic exam demonstrates dysarthria and right facial palsy. Head CT negative. Management per stroke protocol. Not a candidate for TPA due to (1) duration of symptoms and (2) surgery 48 hours prior to admission. Neuro checks. Dysphagia screen. Check MRI brain, carotid duplex, echocardiogram. Check lipid profile. Allergic to aspirin (labial ulcers). Antiplatelet therapy with clopidogrel. PT, OT, speech therapy evaluations. Consult Neurology. HYPERTENSION History of hypertension made with losartan and clonidine. Allow permissive hypertension in light of suspected acute ischemic stroke. Hold clonidine and losartan for systolic BP less than 140. DYSLIPIDEMIA Intolerant of multiple statins (severe myalgias). Check lipid profile. Consider non-statin lipid-lowering agents depending on results. ASTHMA Stable. Continue usual meds. DM TYPE 2 Well-controlled at home on metformin. Random blood sugar 117 in ED. Check Hgb A1C. Metformin during hospital stay. Glycemic patient with Lantus/NovoLog per protocol. LEUKOCYTOSIS WBC 12,000. No fever. No apparent wound infection. No cough, dysuria, GI symptoms. Follow. ANXIETY / DEPRESSION Continue usual meds. VTE PROPHYLAXIS Moderate risk for VTE. No anticoagulants at this time due to serosanguineous drainage from breast reduction surgery. SCD's. Ambulate. RESUSCITATION STATUS Discussed with patient and her daughter. No living will. Full code. DISPOSITION Admit to Telemetry Unit. Discharge disposition to be determined after further evaluation and therapy recommendations. Family Medicine follow-up with Dr. Navya Henson. . VTE Prophylaxis Given or contraindicated: SCD's
[2017-01-31] MEDS ORDERED: PHARMACIST DISCHARGE MED REC CONSULT PRN (13:00)
[2017-01-31] MEDS ORDERED: OMEP40CA41 PO (13:07)
[2017-01-31] MEDS ORDERED: METF-382 PO (13:07)
[2017-01-31] MEDS ORDERED: BUSP-8 PO (13:07)
[2017-01-31] MEDS ORDERED: OXYC1TAB3 PO (13:07)
[2017-01-31] MEDS ORDERED: POLYETHYLENE (MIRALAX) 17 GM PACK PO PRN (13:15)
[2017-01-31] MEDS ORDERED: ALBUTEROL HFA 8 GM INHALER INH PRN (13:15)
[2017-01-31 13:32] VITALS: BP 128/80; PULSE 86; TEMP 36.8; O2SAT 97; BMI 44.9
[2017-01-31] MEDS ORDERED: CLOPIDOGREL BISULFATE 75 MG TAB PO ONE (13:45)
--- NOTE | 2017-01-31 14:26 | Neurology Consultation ---
Neurology Consultation Date of Consultation: Jan 31, 2017. Attending Physician: Reuben River DO Primary Care Physician: Navya Henson D.O. Reason for Consultation: dysarthria History of Present Illness Source: patient Rocio is a 56 year old female who has a PMH HTN, asthma, anxiety, depression , GERD. Yesterday after being discharged from the hospital she complained of waxing and waning slurred speech. She also states she felt weak when walking. She had breast reduction surgery several days ago at [facility]. By report her daughter thought she had some slurred speech before she left the hospital and worsened when she got home. The patient's speech was noted to be getting better last night, but did not completely go away but then got worse again. Daughter called the surgeon who recommended she come to [facility] for evaluation. She states she is doing better but still very tired. She was taking the pain medications as directed from the surgeon. Pt denies LOC, headache, fevers, chills, visual changes, neck pain, CP, SOB, N, V, abdominal pain, one sided numbness, weakness. She was not on aspirin prior to her surgery due to being allergic Past Medical/Surgical History Medical Problems: (1) Facial droop Status: Acute (2) Precordial chest pain Status: Acute (3) Shortness of breath Status: Acute (4) Slurred speech Status: Acute Social History Smoking Status: Never smoker Marital Status: Occupation Status: disabled Allergies Coded Allergies: Latex1 -Allergic Contact Dermititis (Verified Allergy, Mild, ITCHING, REDNESS, BLISTER, 01/31/17) Acetaminophen (Verified Allergy, Unknown, HIVES, 01/31/17) Aspirin (Verified Allergy, Unknown, MOUTH ULCERS AND BLISTERS IF TAKEN DAILY, 01/31/17) Eggs or Egg-derived Products (Verified Allergy, Unknown, NAUSEA/VOMITING, 01/31/17) Hydralazine (Verified Allergy, Unknown, SEVERE MUSCLE PAIN AND WEAKNESS, 01/31/17) Milk (Verified Allergy, Unknown, RASH, 01/31/17) Propoxyphene (Verified Allergy, Unknown, HIVES, 01/31/17) Rosuvastatin (Verified Allergy, Unknown, MUSCLE PAIN, 01/31/17) Hydrochlorothiazide (Verified Adverse Reaction, Intermediate, HIVES, 01/31) Banana (Verified Adverse Reaction, Unknown, MOUTH SORES/BLISTERS, 01/31/17 ) Current Inpatient Medications Current Inpatient Medications Medications (Trade) Dose Ordered Sig/Yola Route Start Time Stop Time Status Last Admin Dose Admin Clopidogrel Bisulfate (plAVix TAB) 75 mg QAM PO 02/01/17 09:00 03/03/17 08:59 Miscellaneous Information (Pharmacist Discharge Med Rec Consult) 1 ea UD PRN N/A 01/31/17 13:00 03/02/17 12:59 Clopidogrel Bisulfate (plAVix TAB) 75 mg 1345 ONCE PO 01/31/17 13:45 01/31/17 13:46 Insulin Glargine (Lantus Solostar Pen) 10 units BID SC 01/31/17 21:00 03/02/17 20:59 UNV Insulin Aspart (novoLOG ASPART) SLIDING SCALE G... ACHS SC 01/31/17 16:15 03/02/17 16:14 Albuterol (Ventolin Hfa Inhaler) 2 puffs Q6H PRN INH 01/31/17 13:15 03/02/17 13:14 Clonidine HCl (Catapres Tab) 0.3 mg BID PO 01/31/17 21:00 03/02/17 20:59 Salmeterol Xinafoate/ Fluticasone (Advair Diskus 500/50 Inh) 1 puff BID INH 01/31/17 21:00 03/02/17 20:59 Gabapentin (Neurontin Cap) 300 mg BID@0900,1200 PO 02/01/17 09:00 03/03/17 08:59 Losartan Potassium (coZAAR TAB) 100 mg QAM PO 02/01/17 09:00 03/03/17 08:59 Oxycodone HCl (Roxicodone Immediate Rel Tab) 5 mg Q4H PRN PO 01/31/17 13:15 02/14/17 13:14 Sertraline HCl (Zoloft Tab) 100 mg QAM PO 02/01/17 09:00 03/03/17 08:59 Buspirone HCl (Buspar Tab) 10 mg BID PO 01/31/17 21:00 03/02/17 20:59 Pantoprazole Sodium (Protonix Tab) 40 mg QAM PO 02/01/17 09:00 03/03/17 08:59 Polyethylene (Miralax Powder Packet) 17 gm BID PRN PO 01/31/17 13:15 03/02/17 13:14 Gabapentin (Neurontin Tab) 600 mg HS PO 01/31/17 21:00 03/02/17 20:59 Physical Exam Vital Signs (Past 24 Hrs): Date Time Temp Pulse Resp B/P (MAP) Pulse Ox O2 Delivery O2 Flow Rate FiO2 01/31/17 13:32 36.8 86 20 128/80 97 Room Air 01/31/17 12:31 88 22 127/81 93 01/31/17 10:58 88 22 135/69 93 Room Air 01/31/17 10:32 88 01/31/17 10:05 93 Room Air 01/31/17 09:48 37.4 93 20 129/75 95 Room Air Physical Exam: Constitutional: appearance nourished, healthy and normal Ears, Nose, Mouth and Throat: mucous membranes moist, no injection and skin normal, eyes normal Cardiovascular: normal S-1 and S-2 and regular rate and rhythm Respiratory: clear to auscultation (CTA) and no rales, rhonchi slight wheezing Musculoskeletal: no peripheral edema and good distal pulses Skin: no stigmata of neurocutaneous disease noted and normal and intact Eyes: extraocular muscles intact (EOMI) and pupils equal, round and reactive to light (PERRL) NEUROLOGIC EXAMINATION: Mental status: Alert and interactive Oriented to full date and location, can say no ifs ands or buts, stick out tongue, closes eyes points to ceiling with her right hand, Oriented to person Speech some dysarthria with specific words Cranial Nerves smile eye brow raise symmetric, tongue midline Reflexes: Deep tendon reflexes were symmetrical and graded 2/5. Plantar responses were flexor. Sensory: no deficit to cool touch, vibration, GT proprioception in tact Coordination: finger to nose with no bi pass or tremor Gait/Stance: Posture normal. lying in bed Motor: Negative for pronator drift of out stretched arms with eyes closed. Strength: biceps triceps hand plumber pipe fitting bilaterally 5/5 hip flex plantar flex ext 5/5 bilaterally Laboratory Results Past 24 Hours: 01/31/17 10:10 Red Blood Count 3.46, Mean Corpuscular Volume 83.2, Mean Corpuscular Hemoglobin 27.2, Mean Corpuscular Hemoglobin Concent 32.6, Mean Platelet Volume 9.9, Neutrophils (%) (Auto) 73.7, Lymphocytes (%) (Auto) 16.4, Monocytes (%) (Auto) 7.4, Eosinophils (%) (Auto) 1.5, Basophils (%) (Auto) 0.4, Neutrophils # (Auto) 9.30, Lymphocytes # (Auto) 2.07, Monocytes # (Auto) 0.94, Eosinophils # (Auto) 0.19, Basophils # (Auto) 0.05 01/31/17 10:10 Test 01/31/17 10:00 01/31/17 10:10 01/31/17 10:13 Bedside Glucose 127 mg/dl (70-90) White Blood Count 12.62 K/uL (4.8-10.8) Red Blood Count 3.46 M/uL (4.2-5.4) Hemoglobin 9.4 g/dL (12.0-16.0) Hematocrit 28.8 % (37-47) Mean Corpuscular Volume 83.2 fL (80-100) Mean Corpuscular Hemoglobin 27.2 pg (25-34) Mean Corpuscular Hemoglobin Concent 32.6 g/dl (32-36) Platelet Count 292 K/uL (130-400) Mean Platelet Volume 9.9 fL (7.4-10.4) Neutrophils (%) (Auto) 73.7 % Lymphocytes (%) (Auto) 16.4 % Monocytes (%) (Auto) 7.4 % Eosinophils (%) (Auto) 1.5 % Basophils (%) (Auto) 0.4 % Neutrophils # (Auto) 9.30 K/uL (1.4-6.5) Lymphocytes # (Auto) 2.07 K/uL (1.2-3.4) Monocytes # (Auto) 0.94 K/uL (0.11-0.59) Eosinophils # (Auto) 0.19 K/uL (0-0.5) Basophils # (Auto) 0.05 K/uL (0-0.2) RDW Standard Deviation 48.0 fL (36.4-46.3) RDW Coefficient of Variation 15.8 % (11.5-14.5) Immature Granulocyte % (Auto) 0.6 % Immature Granulocyte # (Auto) 0.07 K/uL (0.00-0.02) Prothrombin Time 10.2 SECONDS (9.0-12.0) Prothromb Time International Ratio 1.0 (0.9-1.1) Activated Partial Thromboplast Time 27.3 SECONDS (21.0-31.0) Partial Thromboplastin Ratio 1.1 Anion Gap 6.0 mmol/L (3-11) Est Creatinine Clear Calc Drug Dose 56.8 ml/min Estimated GFR () 59.3 Estimated GFR (Non- 51.2 BUN/Creatinine Ratio 20.3 (10-20) Calcium Level 8.7 mg/dl (8.5-10.1) Total Creatine Kinase 182 U/L (26-192) Creatine Kinase MB 1.3 ng/ml (0.5-3.6) Creatine Kinase MB Ratio 0.7 (0-3.0) Troponin I 0.032 ng/ml (0-0.045) Bedside Prothrombin Time INR 1.1 (0.9-1.1) Imaging CT head No acute intracranial abnormality. Impression 56 year old female s/p breast reduction surgery, slurred speech and weakness Plan 1. CT head no acute findings 2. TTE- in process 3. carotid doppler pending 4. MRI with and without contrast for evaluation of possible stroke 5. permissive hypertension 6. plavix 75 mg started due to aspirin allergy 7. optimize HTN, DL, DM 8. PT/OT speech therapy 9. may not be able to take statin Rosuvastatin on allergy list further recommendations to follow once imaging and labs are done I have seen and discussed above patient with Dr Kristen Quiroz, neurology Pt seen and examined, mult [facility] risk factors, waxing waning dysarthria for 2 days since breast reduction surgery. Pt has been taking narcotics during that time. Pt is awake, intermittently mildly dysarthric, attn varies, no aphasia. Pt not wearing upper dental plate. Tongue midline no facial asym. Full strength , no bruits, murmur, calf swelling or tenderness. Imp waxing waning dysarthria since mammoplasty 2 d ago. Query narcotic/ anesthesia related v stroke. P MRI, carotid us, tele, echo, antiplt tx. consider holding narcotics if pain tolerable. Will follow with you. RUBY Quiroz MD
[2017-01-31 15:17] VITALS: BP 153/86; PULSE 101; TEMP 37.7; O2SAT 95
[2017-01-31] MEDS: OXYCODONE HCL IR 5 MG TAB (IMMEDIATE RELEASE) PO PRN (15:22)
--- NOTE | 2017-01-31 16:01 | ECHOCARDIOGRAM REPORT ---
*NOTICE TO RECEIVING DEMOCRAT AGENCY This information is strictly Confidential and protected under [place] law. [place] law prohibits you from making any further disclosure of this information unless further disclosure is expressly permitted by the written consent of the person to whom it pertains or is authorized by law. A general authorization for the release of medical or other information is not sufficient for this purpose. Hospital accepts no responsibility if the information is made available to any other person, INCLUDING THE PATIENT. Interpretation Summary * Name: TAMIKA HURST Study Date: 01/31/2017 01:52 PM BP: 127/81 mmHg * Patient Location: [facility] HR: 88 * : 1960 (M/d/yyyy) Gender: Female Height: 59 in * Age: 56 yrs Ethnicity: CA Weight: 227 lb * Ordering Physician: Jasen Ochoa * Referring Physician: Self, Referred * Performed By: Romel Westbrook RCS * * Reason For Study: Stroke * BSA: 1.9 m2 * The study was technically limited. * The study was technically difficult. * -- Conclusions -- * The study was technically limited. * The study was technically difficult. * The left ventricle is grossly normal size. * The left ventricular ejection fraction is grossly normal. Procedure Details * Limited views were obtained. Left Ventricle * The left ventricle is grossly normal size. * The left ventricular ejection fraction is grossly normal. MMode 2D Measurements and Calculations IVSd 1.1 cm IVSs 1.5 cm LVIDd 4.8 cm LVIDs 2.7 cm LVPWd 1.1 cm LVPWs 1.4 cm IVS/LVPW 1.0 FS 43.4 % EDV(Teich) 107.4 ml ESV(Teich) 27.4 ml EF(Teich) 74.5 % EDV(cubed) 110.5 ml ESV(cubed) 20.0 ml EF(cubed) 81.9 % % IVS thick 38.7 % % LVPW thick 35.0 % LV mass(C)d 186.5 grams LV mass(C)dI 95.8 grams/m\S\2 LV mass(C)s 133.4 grams LV mass(C)sI 68.5 grams/m\S\2 SV(Teich) 80.0 ml SI(Teich) 41.1 ml/m\S\2 SV(cubed) 90.5 ml SI(cubed) 46.5 ml/m\S\2 Ao root diam 2.8 cm Ao root area 6.2 cm\S\2 ACS 1.4 cm LA dimension 3.5 cm LA/Ao 1.2
[2017-01-31 16:10] VITALS: O2SAT 95
[2017-01-31] MEDS: INSULIN ASPART 100 UNITS/ML 3 ML PEN SC SCH ×2 (17:04→21:00)
[2017-01-31] MEDS ORDERED: INFLUENZA VIRUS QUAD VACCINE 0.5 ML SYR IM. ONE (18:00)
[2017-01-31] MEDS ORDERED: INFLUENZA ADMINISTRATION CHARGE ONE (18:00)
[2017-01-31] MEDS: CLONIDINE HCL 0.3 MG TAB PO SCH (19:25)
[2017-01-31] MEDS: GABAPENTIN 600 MG TAB PO SCH (19:26)
[2017-01-31] MEDS: FLUTICASONE/SALMETEROL (ADVAIR) 500/50 INH 14 PUFF INH SCH (19:27)
[2017-01-31 19:54] VITALS: BP 147/74; PULSE 98; TEMP 37.4; O2SAT 94
[2017-01-31] MEDS: INSULIN GLARGINE SOLOSTAR 100 UNITS/ML 3 ML PEN SC SCH (21:04)
[2017-01-31 23:09] VITALS: BP 147/77; PULSE 93; TEMP 37.1; O2SAT 95
--- NOTE | 2017-01-31 23:10 | DIAGNOSTIC IMAGING REPORT ---
BRAIN WITHOUT CONTRAST CLINICAL HISTORY: 56 years-old Female presenting with Stroke, slurred speech, surgery 2 days ago. TECHNIQUE: Multisequence, multiplanar MR imaging of the brain was performed without the use of intravenous contrast. IV contrast: None. COMPARISON: 02/06/2016. FINDINGS: Ventricles and sulci normal in size. Periventricular and subcortical white matter T2/FLAIR hyperintensity, nonspecific. No mass effect or midline shift. Multiple small foci of restricted diffusion bilaterally primarily in the subcortical white matter, some of which correlates to T2/FLAIR abnormalities. No extra-axial fluid collection. T2 skull base flow voids preserved. Mucosal thickening in the sphenoid sinus. Bone marrow signal intensity within the calvarium within normal limits. IMPRESSION: 1. Multiple small infarcts primarily in the subcortical white matter of the bilateral cerebral hemispheres. This distribution is most characteristic of deep (internal) watershed infarcts. The presence of T2/FLAIR abnormality is consistent with infarct greater than 6 hours old. Electronically signed by: Rowdy Lao M.D. 01/31/2017 11:09 PM Dictated Date/Time: 01/31/2017 11:02 PM
[2017-02-01] VITALS (8 sets, daily range): BP systolic 126–157; BP diastolic 79–88; PULSE 75–90; TEMP 36.8–37.4; O2SAT 94–97; Ht 149.9 cm; Wt 102.0 kg
--- NOTE | 2017-02-01 06:37 | DIAGNOSTIC IMAGING REPORT ---
ULTRASOUND OF THE CAROTID ARTERIES CLINICAL HISTORY: dysarthria COMPARISON STUDY: None. TECHNIQUE: Real-time, grayscale, and color Doppler sonography of the carotid arteries was performed. Imaging reviewed in the transverse and longitudinal planes. NASCET criteria was utilized for stenosis calcification. FINDINGS: There is minor atherosclerotic plaque present . The peak systolic velocity within the right internal carotid artery is 85 cm/sec. The systolic velocity ratio of right internal to common carotid artery is 0.8. The peak systolic velocity within the left internal carotid artery is 107 cm/sec. The systolic velocity ratio left internal to common carotid artery is 1. Antegrade flow is seen in the vertebral arteries. The external carotid arteries are patent. IMPRESSION: No evidence of hemodynamically significant carotid stenosis. Electronically signed by: Sohan Galloway M.D. 02/01/2017 6:36 AM Dictated Date/Time: 02/01/2017 6:35 AM
--- NOTE | 2017-02-01 07:20 | DIAGNOSTIC IMAGING REPORT ---
CHEST ONE VIEW PORTABLE HISTORY: stroke, fever COMPARISON: Chest 05/08/2016. FINDINGS: The heart remains mildly enlarged. The lungs are clear. No pleural effusions. No pneumothorax. IMPRESSION: Stable mild cardiomegaly. Electronically signed by: Jose Valle M.D. 02/01/2017 7:19 AM Dictated Date/Time: 02/01/2017 7:18 AM
[2017-02-01 07:26] LABS: HEMATOCRIT 26.9 % (37-47); MEAN CELL VOLUME 83.3 fL (80-100); MEAN CORPUSCULAR HEMOGLOBIN 27.2 pg (25-34); MEAN CORPUSCULAR HGB CONC 32.7 g/dl (32-36); MEAN PLATELET VOLUME 9.4 fL (7.4-10.4); PLATELET COUNT 261 K/uL (130-400); RED BLOOD COUNT 3.23 M/uL (4.2-5.4); WHITE BLOOD COUNT 10.24 K/uL (4.8-10.8)
[2017-02-01] MEDS: FLUTICASONE/SALMETEROL (ADVAIR) 500/50 INH 14 PUFF INH SCH ×2 (07:41→20:30)
[2017-02-01] MEDS: CLONIDINE HCL 0.3 MG TAB PO SCH ×2 (07:42→20:30)
[2017-02-01] MEDS: LOSARTAN POTASSIUM 50 MG TAB PO SCH (07:43)
[2017-02-01] MEDS: ATORVASTATIN 40 MG TAB PO SCH (07:44)
[2017-02-01] MEDS: GABAPENTIN 300 MG CAP PO SCH ×2 (07:45→12:06)
[2017-02-01] MEDS: CLOPIDOGREL BISULFATE 75 MG TAB PO SCH (07:45)
[2017-02-01] MEDS: PANTOprazole SOD 40 MG TAB PO SCH (07:46)
[2017-02-01] MEDS: SERTRALINE HCL 100 MG TAB PO SCH (07:46)
[2017-02-01] MEDS: INSULIN GLARGINE SOLOSTAR 100 UNITS/ML 3 ML PEN SC SCH ×2 (07:48→20:59)
[2017-02-01] MEDS: INSULIN ASPART 100 UNITS/ML 3 ML PEN SC SCH ×4 (07:48→20:57)
[2017-02-01 07:58] LABS: BUN/CREATININE RATIO 22.1 (10-20); CALCIUM 8.3 mg/dl (8.5-10.1); CREATININE 0.75 mg/dl (0.60-1.20); POTASSIUM 3.2 mmol/L (3.5-5.1)
[2017-02-01 08:01] LABS: CHOLESTEROL/HDL RATIO 5.9
[2017-02-01] MEDS ORDERED: POTASSIUM CHLORIDE 10 MEQ TABCR PO ONE (09:00)
[2017-02-01] MEDS ORDERED: ATORVASTATIN 40 MG TAB PO SCH (09:00)
[2017-02-01] MEDS: POTASSIUM CHLR 10 MEQ / WTR 10 MEQ in PREMIXED WATER 100 ML IV SCH ×2 (09:14→11:01)
[2017-02-01 09:21] LABS: ESTIMATED AVERAGE GLUCOSE 140 mg/dl; HA1C FLAG Normal (Normal)
--- NOTE | 2017-02-01 10:57 | Progress Note ---
Subjective Date of Service: Feb 01, 2017. Subjective Pt evaluation today including: conversation w/ patient, physical exam, lab review, review of studies, review of inpatient medication list Saw/examined the patient in room 241 She states she came to the ER with slurred speech She is feeling better now; back to her baseline. Some residual surgical site pain at the upper chest/breasts No more slurring of speech, etc. Problem List Medical Problems: (1) Facial droop Status: Acute (2) Precordial chest pain Status: Acute (3) Shortness of breath Status: Acute (4) Slurred speech Status: Acute Review of Systems Constitutional: No fever, No chills Respiratory: No cough, No sputum, No wheezing, No shortness of breath, No dyspnea on exertion, No dyspnea at rest, No hemoptysis Cardiac: + chest pain (chest wall pain), No edema, No palpitations Abdomen: No pain, No nausea, No vomiting, No diarrhea Neurologic: No memory loss, No paralysis, No weakness, No numbness/tingling, No vertigo, No balance problems Medications Current Inpatient Medications Medications (Trade) Dose Ordered Sig/Yola Route Start Time Stop Time Status Last Admin Dose Admin Clopidogrel Bisulfate (plAVix TAB) 75 mg QAM PO 02/01/17 09:00 03/03/17 08:59 02/01/17 07:45 75 MG Miscellaneous Information (Pharmacist Discharge Med Rec Consult) 1 ea UD PRN N/A 01/31/17 13:00 03/02/17 12:59 Insulin Glargine (Lantus Solostar Pen) 10 units BID SC 01/31/17 21:00 03/02/17 20:59 02/01/17 07:48 10 UNITS Insulin Aspart (novoLOG ASPART) SLIDING SCALE G... ACHS SC 01/31/17 16:15 03/02/17 16:14 02/01/17 07:48 2 UNITS Albuterol (Ventolin Hfa Inhaler) 2 puffs Q6H PRN INH 01/31/17 13:15 03/02/17 13:14 Clonidine HCl (Catapres Tab) 0.3 mg BID PO 01/31/17 21:00 03/02/17 20:59 02/01/17 07:42 0.3 MG Salmeterol Xinafoate/ Fluticasone (Advair Diskus 500/50 Inh) 1 puff BID INH 01/31/17 21:00 03/02/17 20:59 02/01/17 07:41 1 PUFF Gabapentin (Neurontin Cap) 300 mg BID@0900,1200 PO 02/01/17 09:00 03/03/17 08:59 02/01/17 07:45 300 MG Losartan Potassium (coZAAR TAB) 100 mg QAM PO 02/01/17 09:00 03/03/17 08:59 02/01/17 07:43 100 MG Oxycodone HCl (Roxicodone Immediate Rel Tab) 5 mg Q4H PRN PO 01/31/17 13:15 02/14/17 13:14 01/31/17 15:22 5 MG Sertraline HCl (Zoloft Tab) 100 mg QAM PO 02/01/17 09:00 03/03/17 08:59 02/01/17 07:46 100 MG Buspirone HCl (Buspar Tab) 10 mg BID PO 01/31/17 21:00 03/02/17 20:59 02/01/17 07:41 10 MG Pantoprazole Sodium (Protonix Tab) 40 mg QAM PO 02/01/17 09:00 03/03/17 08:59 02/01/17 07:46 40 MG Polyethylene (Miralax Powder Packet) 17 gm BID PRN PO 01/31/17 13:15 03/02/17 13:14 Gabapentin (Neurontin Tab) 600 mg HS PO 01/31/17 21:00 03/02/17 20:59 01/31/17 19:26 600 MG Atorvastatin Calcium (Lipitor Tab) 20 mg QAM PO 02/01/17 09:00 03/03/17 08:59 02/01/17 07:44 20 MG Potassium Chloride 10 meq/ Prmx 100 ml @ 100 mls/hr Q1H IV 02/01/17 09:00 02/01/17 10:59 02/01/17 09:14 100 MLS/HR Objective Vital Signs Date Time Temp Pulse Resp B/P (MAP) Pulse Ox O2 Delivery O2 Flow Rate FiO2 02/01/17 07:39 37.0 90 16 156/85 (108) 94 Room Air 02/01/17 04:55 37.3 89 16 149/82 (104) 97 Room Air 02/01/17 04:00 Room Air 02/01/17 00:00 Room Air 01/31/17 23:09 37.1 93 16 147/77 (100) 95 Room Air 01/31/17 20:10 Room Air 01/31/17 19:54 37.4 98 18 147/74 (98) 94 Room Air 01/31/17 16:10 95 Room Air 01/31/17 15:17 37.7 101 20 153/86 (108) 95 Room Air 01/31/17 13:32 36.8 86 20 128/80 97 Room Air 01/31/17 12:31 88 22 127/81 93 01/31/17 10:58 88 22 135/69 93 Room Air Physical Exam General Appearance: no apparent distress, + obese Respiratory/Chest: lungs clear, normal breath sounds, no respiratory distress, no accessory muscle use Cardiovascular: regular rate, rhythm, no edema, no murmur Abdomen: normal bowel sounds, non tender, soft Extremities: normal range of motion, non-tender, normal inspection, no pedal edema, no calf tenderness Neurologic/Psychiatric: patient transport orderly II-XII nml as tested, no motor/sensory deficits, alert, normal mood/affect, oriented x 3 Laboratory Results Last 24 Hours Test 01/31/17 16:26 01/31/17 20:52 02/01/17 07:03 02/01/17 07:06 Bedside Glucose 135 mg/dl 146 mg/dl 126 mg/dl White Blood Count 10.24 K/uL Red Blood Count 3.23 M/uL Hemoglobin 8.8 g/dL Hematocrit 26.9 % Mean Corpuscular Volume 83.3 fL Mean Corpuscular Hemoglobin 27.2 pg Mean Corpuscular Hemoglobin Concent 32.7 g/dl RDW Standard Deviation 47.1 fL RDW Coefficient of Variation 15.4 % Platelet Count 261 K/uL Mean Platelet Volume 9.4 fL Sodium Level 140 mmol/L Potassium Level 3.2 mmol/L Chloride Level 107 mmol/L Carbon Dioxide Level 26 mmol/L Anion Gap 7.0 mmol/L Blood Urea Nitrogen 17 mg/dl Creatinine 0.75 mg/dl Est Creatinine Clear Calc Drug Dose 91.1 ml/min Estimated GFR () 104.7 Estimated GFR (Non- 90.4 BUN/Creatinine Ratio 22.1 Random Glucose 125 mg/dl Estimated Average Glucose 140 mg/dl Hemoglobin A1c 6.5 % Calcium Level 8.3 mg/dl Triglycerides Level 154 mg/dl Cholesterol Level 196 mg/dl HDL Cholesterol 33 mg/dl LDL Cholesterol, Calculated 132 mg/dl VLDL Cholesterol, Calculated 31 mg/dl Cholesterol/HDL Ratio 5.9 Assessment and Plan This is a 56 year old female with a PMH of DM2, HTN, HLD, recent breast reduction surgery performed at [place] - presented with slurred speech Acute CVA Brain MRI suggests multiple small infarcts primarily in the subcortical white matter of the bilateral cerebral hemispheres started on Plavix appreciate neurology input started on low dose statin; will increase as tolerated continue PT/OT/speech - stroke protocol monitor in tele carotid U/S negative unfortunately, echo was limited due to recent breast reduction surgery further input as per neurology DM2 Ha1c = 6.5% takes metformin at home hold oral agents, start Lantus and sliding scale HTN blood pressure in the 140s-150s currently we can allow some elevation in SBP, but will need tighter control as outpatient continue clonidine and Cozaar for now Depression/Anxiety continue current medications DVT ppx SCDs, monitor for bleeding due to recent surgery FULL CODE
--- NOTE | 2017-02-01 13:41 | Neurology Progress Notes ---
Neurology Progress Note Date of Service Feb 01, 2017. Lorenza Chan is a 56 year old female who has a PMH HTN, asthma, anxiety, depression , GERD. Yesterday after being discharged from the hospital she complained of waxing and waning slurred speech. She also states she felt weak when walking. She had breast reduction surgery several days ago at [place]. By report her daughter thought she had some slurred speech before she left the hospital and worsened when she got home. The patient's speech was noted to be getting better last night, but did not completely go away but then got worse again. Daughter called the surgeon who recommended she come to [facility] for evaluation. She states she is doing better but still very tired. She was taking the pain medications as directed from the surgeon. She was not on aspirin prior to her surgery due to being allergic She states she is feeling better today. She has been up and walking to the bathroom without assistance. She would like to go home. denies LOC, headache, fevers, chills, visual changes, neck pain, CP, SOB, N, V, abdominal pain, one sided numbness, weakness. Objective Date Time Temp Pulse Resp B/P (MAP) Pulse Ox O2 Delivery O2 Flow Rate FiO2 02/01/17 12:57 36.8 79 16 131/82 (98) 94 Room Air 02/01/17 12:00 Room Air 02/01/17 08:00 Room Air 02/01/17 07:39 37.0 90 16 156/85 (108) 94 Room Air 02/01/17 04:55 37.3 89 16 149/82 (104) 97 Room Air 02/01/17 04:00 Room Air 02/01/17 00:00 Room Air 01/31/17 23:09 37.1 93 16 147/77 (100) 95 Room Air 01/31/17 20:10 Room Air 01/31/17 19:54 37.4 98 18 147/74 (98) 94 Room Air 01/31/17 16:10 95 Room Air 01/31/17 15:17 37.7 101 20 153/86 (108) 95 Room Air 01/31/17 13:32 36.8 86 20 128/80 97 Room Air Last 24 Hours Test 01/31/17 16:26 01/31/17 20:52 02/01/17 07:03 02/01/17 07:06 Bedside Glucose 135 mg/dl 146 mg/dl 126 mg/dl White Blood Count 10.24 K/uL Red Blood Count 3.23 M/uL Hemoglobin 8.8 g/dL Hematocrit 26.9 % Mean Corpuscular Volume 83.3 fL Mean Corpuscular Hemoglobin 27.2 pg Mean Corpuscular Hemoglobin Concent 32.7 g/dl RDW Standard Deviation 47.1 fL RDW Coefficient of Variation 15.4 % Platelet Count 261 K/uL Mean Platelet Volume 9.4 fL Sodium Level 140 mmol/L Potassium Level 3.2 mmol/L Chloride Level 107 mmol/L Carbon Dioxide Level 26 mmol/L Anion Gap 7.0 mmol/L Blood Urea Nitrogen 17 mg/dl Creatinine 0.75 mg/dl Est Creatinine Clear Calc Drug Dose 91.1 ml/min Estimated GFR () 104.7 Estimated GFR (Non- 90.4 BUN/Creatinine Ratio 22.1 Random Glucose 125 mg/dl Estimated Average Glucose 140 mg/dl Hemoglobin A1c 6.5 % Calcium Level 8.3 mg/dl Triglycerides Level 154 mg/dl Cholesterol Level 196 mg/dl HDL Cholesterol 33 mg/dl LDL Cholesterol, Calculated 132 mg/dl VLDL Cholesterol, Calculated 31 mg/dl Cholesterol/HDL Ratio 5.9 Test 02/01/17 10:58 Bedside Glucose 140 mg/dl Imaging: carotid doppler- No evidence of hemodynamically significant carotid stenosis. MRI brain with and without- Multiple small infarcts primarily in the subcortical white matter of the bilateral cerebral hemispheres. This distribution is most characteristic of deep (internal) watershed infarcts. The presence of T2/FLAIR abnormality is consistent with infarct greater than 6 hours old. TTE-The study was technically limited. * The study was technically difficult. * The left ventricle is grossly normal size. * The left ventricular ejection fraction is grossly normal. Exam: Physical Exam: Constitutional: appearance nourished, healthy and normal Ears, Nose, Mouth and Throat: mucous membranes moist, no injection and skin normal, eyes normal Cardiovascular: normal S-1 and S-2 and regular rate and rhythm Respiratory: clear to auscultation (CTA) and no rales, rhonchi or wheeze Musculoskeletal: no peripheral edema and good distal pulses Skin: no stigmata of neurocutaneous disease noted and normal and intact Eyes: extraocular muscles intact (EOMI) and pupils equal, round and reactive to light (PERRL) gross peripheral vision intact NEUROLOGIC EXAMINATION: Mental status: Alert and interactive Oriented to full date and location Oriented to person Speech fluent can say no ifs ands or buts, identify stethoscope, thumb Cranial Nerves smile eye brow raise symmetric, tongue midline Coordination: finger to nose without bi pass Gait/Stance: Posture sitting up in bed Motor: Negative for pronator drift of out stretched arms with eyes closed. Strength: biceps triceps hand lead injection mold technician 5/5 bilaterally, hip flex plantar flex ext bilaterally 5/5 Current Inpatient Medications Medications (Trade) Dose Ordered Sig/Yola Route Start Time Stop Time Status Last Admin Dose Admin Clopidogrel Bisulfate (plAVix TAB) 75 mg QAM PO 02/01/17 09:00 03/03/17 08:59 02/01/17 07:45 75 MG Miscellaneous Information (Pharmacist Discharge Med Rec Consult) 1 ea UD PRN N/A 01/31/17 13:00 03/02/17 12:59 Insulin Glargine (Lantus Solostar Pen) 10 units BID SC 01/31/17 21:00 03/02/17 20:59 02/01/17 07:48 10 UNITS Insulin Aspart (novoLOG ASPART) SLIDING SCALE G... ACHS SC 01/31/17 16:15 03/02/17 16:14 02/01/17 12:20 1 UNITS Albuterol (Ventolin Hfa Inhaler) 2 puffs Q6H PRN INH 01/31/17 13:15 03/02/17 13:14 Clonidine HCl (Catapres Tab) 0.3 mg BID PO 01/31/17 21:00 03/02/17 20:59 02/01/17 07:42 0.3 MG Salmeterol Xinafoate/ Fluticasone (Advair Diskus 500/50 Inh) 1 puff BID INH 01/31/17 21:00 03/02/17 20:59 02/01/17 07:41 1 PUFF Gabapentin (Neurontin Cap) 300 mg BID@0900,1200 PO 02/01/17 09:00 03/03/17 08:59 02/01/17 12:06 300 MG Losartan Potassium (coZAAR TAB) 100 mg QAM PO 02/01/17 09:00 03/03/17 08:59 02/01/17 07:43 100 MG Oxycodone HCl (Roxicodone Immediate Rel Tab) 5 mg Q4H PRN PO 01/31/17 13:15 02/14/17 13:14 01/31/17 15:22 5 MG Sertraline HCl (Zoloft Tab) 100 mg QAM PO 02/01/17 09:00 03/03/17 08:59 02/01/17 07:46 100 MG Buspirone HCl (Buspar Tab) 10 mg BID PO 01/31/17 21:00 03/02/17 20:59 02/01/17 07:41 10 MG Pantoprazole Sodium (Protonix Tab) 40 mg QAM PO 02/01/17 09:00 03/03/17 08:59 02/01/17 07:46 40 MG Polyethylene (Miralax Powder Packet) 17 gm BID PRN PO 01/31/17 13:15 03/02/17 13:14 Gabapentin (Neurontin Tab) 600 mg HS PO 01/31/17 21:00 03/02/17 20:59 01/31/17 19:26 600 MG Atorvastatin Calcium (Lipitor Tab) 20 mg QAM PO 02/01/17 09:00 03/03/17 08:59 02/01/17 07:44 20 MG Impression 56 year old female s/p breast reduction surgery, slurred speech and weakness - resolving Plan 1. CT head no acute findings 2. TTE- technically difficulty due to breast reduction surgery 4 days ago 3. carotid doppler no significant stenosis 4. MRI with and without contrast multiple small subcortical white matter infarcts 5. permissive hypertension 6. plavix 75 mg started due to aspirin allergy 7. optimize HTN, DL, DM 8. PT/OT speech therapy 9. may not be able to take statin Rosuvastatin on allergy list - lipitor started low dose will increase as tolerated 10. cardionet as out patient 11, repeat TTE for cardiac sources or if cardiology thinks ADRIAN should be done to assess- will consult cards 12. is this a post operative fat embolism through PFO or lung fistula?? 13. LE doppler-bilateral 14. hyper coag work up will need follow up with neurology in 3-4 weeks Kristen Galicia PAC schedule I have seen and discussed above patient with Dr Jasen Burgess, neurology Patient seen and interviewed and examined, imaging reviewed and history again reviewed. This woman is post reduction mammoplasty and was in overnight only with symptoms developing on first pos operative day. There were no pulmonary symptoms, no history of leg swelling or pain, she was not immobile for long and has no prior history for hypercoagulability nor family history for same but now has multiple likely embolic events bihemispheral and a rather complicated workup is underway. Am a bit suspicious about fat emboli as these have been reported post mammoplasty and obviously we need to consider nonfat emboli as well but is so then a right to left shunt or pathway has to be present and we need to assess for at least a pfo and possibly a pulmonary avm and need to check for dvt and hypercoagulable state and possibly for paroxysmal atrial fib. Have discussed with Dr River and some orders are in for now go wit plavix in light of asa allergy get cardiology suggestions and we will follow up tomorrow Jasen Burgess MD
[2017-02-01 15:05] LABS: BASO % 0.2 %; BASO ABS # 0.02 K/uL (0-0.2); EOS % 2.5 %; HEMATOCRIT 24.6 % (37-47); IG% 0.7 %; LYMPH % 14.6 %; LYMPH ABS # 1.34 K/uL (1.2-3.4); MEAN CELL VOLUME 82.8 fL (80-100); MEAN CORPUSCULAR HEMOGLOBIN 27.9 pg (25-34); MEAN CORPUSCULAR HGB CONC 33.7 g/dl (32-36); MEAN PLATELET VOLUME 9.3 fL (7.4-10.4); PLATELET COUNT 246 K/uL (130-400); RED BLOOD COUNT 2.97 M/uL (4.2-5.4); WHITE BLOOD COUNT 9.15 K/uL (4.8-10.8)
--- NOTE | 2017-02-01 15:24 | DIAGNOSTIC IMAGING REPORT ---
BILATERAL LOWER EXTREMITY VENOUS DOPPLER CLINICAL HISTORY: Breast reduction surgery and subcortical stroke. COMPARISON STUDY: No previous studies for comparison. TECHNIQUE: Sonography of the deep venous system of the bilateral lower extremities was performed. Compression and augmentation were evaluated. FINDINGS: The bilateral common femoral, superficial femoral and popliteal veins were compressible. Augmentation was normal. Flow was shown within the deep calf vessels. IMPRESSION: No evidence of deep venous thrombus within the bilateral lower extremities. Electronically signed by: Myles Caputo M.D. 02/01/2017 3:22 PM Dictated Date/Time: 02/01/2017 3:21 PM
[2017-02-01 15:27] LABS: ALB/GLOB RATIO 0.7 (0.9-2); CALCIUM 8.5 mg/dl (8.5-10.1); CREATININE 0.8 mg/dl (0.60-1.20); POTASSIUM 3.7 mmol/L (3.5-5.1)
[2017-02-01 15:45] LABS: COMPLETE YES; MICROCYTOSIS PRESENT; POLYCHROMASIA 1+
[2017-02-01 15:51] LABS: URINE APPEARANCE CLEAR (CLEAR); URINE BILIRUBIN NEG (NEG); URINE COLOR YELLOW; URINE NITRITE NEG (NEG); URINE PH 6.5 (4.5-7.5); URINE SPECIFIC GRAVITY 1.024 (1.000-1.030); UROBILINOGEN NEG (NEG)
[2017-02-01 15:55] LABS: MANUAL MICROSCOPIC REQUIRED? NO; REVIEW REQ? NO
[2017-02-01] MEDS: OXYCODONE HCL IR 5 MG TAB (IMMEDIATE RELEASE) PO PRN (20:29)
[2017-02-01] MEDS: GABAPENTIN 600 MG TAB PO SCH (20:30)
[2017-02-02 03:54] VITALS: BP 130/83; PULSE 80; TEMP 36.7; O2SAT 97
[2017-02-02] MEDS: INSULIN ASPART 100 UNITS/ML 3 ML PEN SC SCH ×2 (07:00→11:00)
[2017-02-02 07:12] LABS: HEMATOCRIT 26.2 % (37-47); MEAN CELL VOLUME 83.2 fL (80-100); MEAN CORPUSCULAR HGB CONC 32.4 g/dl (32-36); MEAN PLATELET VOLUME 9.9 fL (7.4-10.4); PLATELET COUNT 289 K/uL (130-400); RED BLOOD COUNT 3.15 M/uL (4.2-5.4); WHITE BLOOD COUNT 8.66 K/uL (4.8-10.8)
[2017-02-02 07:44] LABS: BUN/CREATININE RATIO 20.9 (10-20); CALCIUM 8.6 mg/dl (8.5-10.1); CREATININE 0.79 mg/dl (0.60-1.20); POTASSIUM 3.6 mmol/L (3.5-5.1)
[2017-02-02 07:59] VITALS: BP 129/81; PULSE 74; TEMP 36.7; O2SAT 97
[2017-02-02 08:00] VITALS: O2SAT 97
[2017-02-02] MEDS: FLUTICASONE/SALMETEROL (ADVAIR) 500/50 INH 14 PUFF INH SCH (08:17)
[2017-02-02] MEDS: ATORVASTATIN 40 MG TAB PO SCH (08:17)
[2017-02-02] MEDS: GABAPENTIN 300 MG CAP PO SCH ×2 (08:17→12:05)
[2017-02-02] MEDS: CLOPIDOGREL BISULFATE 75 MG TAB PO SCH (08:17)
[2017-02-02] MEDS: SERTRALINE HCL 100 MG TAB PO SCH (08:18)
[2017-02-02] MEDS: PANTOprazole SOD 40 MG TAB PO SCH (08:18)
[2017-02-02] MEDS: LOSARTAN POTASSIUM 50 MG TAB PO SCH (08:18)
[2017-02-02] MEDS: CLONIDINE HCL 0.3 MG TAB PO SCH (08:19)
[2017-02-02] MEDS: INSULIN GLARGINE SOLOSTAR 100 UNITS/ML 3 ML PEN SC SCH (08:19)
--- NOTE | 2017-02-02 09:43 | CARDIOLOGY CONSULTATION ---
DATE OF CONSULTATION: 02/02/2017 REFERRING PHYSICIAN: Dr. Ochoa and neurology service. REASON FOR CONSULTATION: Cardiac source to emboli. HISTORY OF PRESENT ILLNESS: This is a 56-year-old female with no prior history or seizures. Earlier this week, she had breast reduction surgery at [facility] and was discharged home. She never really felt well and was weak when walking. Later in the evening, she had slurred speech at home and was brought to the Emergency Department by her family. The patient was admitted and an MRI of the brain suggests several small watershed infarcts of the brain. An echocardiogram was attempted transthoracically, but because of the breast reduction surgery, the imaging was suboptimal. I have been asked to see this patient in regard to the transesophageal echocardiogram. Since admission, her symptoms have improved. She has been on a telemetry unit and has had no significant arrhythmias. ALLERGIES: THERE ARE MULTIPLE ALLERGIES INCLUDING LATEX, ACETAMINOPHEN, ASPIRIN, EGGS AND EGG PRODUCTS, HYDRALAZINE, MILK, PROPOXYPHENE, ROSUVASTATIN, HYDROCHLOROTHIAZIDE AND BANANAS. PAST MEDICAL HISTORY: The patient has a history of type 2 diabetes and GERD. She has no history of esophageal stricture or esophagitis. She is treated for anxiety and depression. She has a history of hyperlipidemia and hypertension. History of mild chronic asthma. FAMILY MEDICAL HISTORY: Significant for diabetes with her mother. SOCIAL HISTORY: She has never smoked. She is and disabled. REVIEW OF SYSTEMS: A 10-point review of systems is otherwise negative. PHYSICAL EXAMINATION: GENERAL: She is alert and oriented. VITAL SIGNS: Blood pressure is 130/70 and pulse is regular at 90. She is afebrile. HEENT: She is normocephalic. Pupils are equal and reactive to light. Extraocular muscles are intact bilaterally. NECK: The neck veins are flat. Carotids have good upstrokes bilaterally without bruits. Thyroid is nonpalpable. RESPIRATORY: Breath sounds equal bilaterally and clear to auscultation. CARDIOVASCULAR: Heart has a regular rhythm. Normal S1 and S2. No S3 or S4. No cardiac rubs or murmurs. GASTROINTESTINAL: Abdomen is soft and nontender without organomegaly. EXTREMITIES: Free of edema, digit clubbing, or cyanosis. NEUROLOGIC: Grossly intact. SKIN: Warm to touch. LYMPH NODES: Negative to palpation. LABORATORY DATA: Hemoglobin is 9.4. Protime is 1.0. Creatinine is 1.2. IMPRESSION: 1. Several watershed strokes. 2. Diabetes mellitus. 3. Dyslipidemia. 4. Hypertension. 5. Gastroesophageal reflux disease. RECOMMENDATIONS: I had a long discussion with the patient regarding transesophageal echocardiogram. She has no contraindications and I believe this study would be low risk for her. Given her history and the inability to get a good transthoracic study, I do not believe it is unreasonable to proceed with a ADRIAN. I have explained the risk, benefit and intent of the procedure to her. She is willing to proceed, but she would very much like to go home first and return at a later date as an outpatient. I do not believe this is an unreasonable approach. I do not believe any additional cardiac testing or workup is indicated. She has been on telemetry for over 24 hours without any evidence of cardiac arrhythmias. If she decides to go home, we can do a ADRIAN later this next week as an outpatient. If she decides to stay, then I can do this Saturday morning.
[2017-02-02 12:00] VITALS: O2SAT 97
[2017-02-02 12:18] VITALS: BP 119/76; PULSE 77; TEMP 36.6; O2SAT 97
--- NOTE | 2017-02-02 15:20 | Progress Note ---
Subjective Date of Service: Feb 02, 2017. Subjective Pt evaluation today including: conversation w/ patient, physical exam, lab review, review of studies, review of inpatient medication list Saw/examined the patient in room 241 No problems/issues to note; she feels fine, no residual symptoms Denies headaches/chest pain/shortness of breath Problem List Medical Problems: (1) Facial droop Status: Acute (2) Precordial chest pain Status: Acute (3) Shortness of breath Status: Acute (4) Slurred speech Status: Acute Review of Systems Constitutional: No fever, No chills Respiratory: No cough, No sputum, No shortness of breath Cardiac: No chest pain Abdomen: No pain, No nausea, No vomiting, No diarrhea Medications Current Inpatient Medications Medications (Trade) Dose Ordered Sig/Yola Route Start Time Stop Time Status Last Admin Dose Admin Clopidogrel Bisulfate (plAVix TAB) 75 mg QAM PO 02/01/17 09:00 03/03/17 08:59 02/02/17 08:17 75 MG Miscellaneous Information (Pharmacist Discharge Med Rec Consult) 1 ea UD PRN N/A 01/31/17 13:00 03/02/17 12:59 Insulin Glargine (Lantus Solostar Pen) 10 units BID SC 01/31/17 21:00 03/02/17 20:59 02/01/17 20:59 10 UNITS Insulin Aspart (novoLOG ASPART) SLIDING SCALE G... ACHS SC 01/31/17 16:15 03/02/17 16:14 02/01/17 12:20 1 UNITS Albuterol (Ventolin Hfa Inhaler) 2 puffs Q6H PRN INH 01/31/17 13:15 03/02/17 13:14 Clonidine HCl (Catapres Tab) 0.3 mg BID PO 01/31/17 21:00 03/02/17 20:59 02/02/17 08:19 0.3 MG Salmeterol Xinafoate/ Fluticasone (Advair Diskus 500/50 Inh) 1 puff BID INH 01/31/17 21:00 03/02/17 20:59 02/02/17 08:17 1 PUFF Gabapentin (Neurontin Cap) 300 mg BID@0900,1200 PO 02/01/17 09:00 03/03/17 08:59 02/02/17 12:05 300 MG Losartan Potassium (coZAAR TAB) 100 mg QAM PO 02/01/17 09:00 03/03/17 08:59 02/02/17 08:18 100 MG Oxycodone HCl (Roxicodone Immediate Rel Tab) 5 mg Q4H PRN PO 01/31/17 13:15 02/14/17 13:14 02/01/17 20:29 5 MG Sertraline HCl (Zoloft Tab) 100 mg QAM PO 02/01/17 09:00 03/03/17 08:59 02/02/17 08:18 100 MG Buspirone HCl (Buspar Tab) 10 mg BID PO 01/31/17 21:00 03/02/17 20:59 02/02/17 08:18 10 MG Pantoprazole Sodium (Protonix Tab) 40 mg QAM PO 02/01/17 09:00 03/03/17 08:59 02/02/17 08:18 40 MG Polyethylene (Miralax Powder Packet) 17 gm BID PRN PO 01/31/17 13:15 03/02/17 13:14 Gabapentin (Neurontin Tab) 600 mg HS PO 01/31/17 21:00 03/02/17 20:59 02/01/17 20:30 600 MG Atorvastatin Calcium (Lipitor Tab) 20 mg QAM PO 02/01/17 09:00 03/03/17 08:59 02/02/17 08:17 20 MG Objective Vital Signs Date Time Temp Pulse Resp B/P (MAP) Pulse Ox O2 Delivery O2 Flow Rate FiO2 02/02/17 12:18 36.6 77 16 119/76 (90) 97 Room Air 02/02/17 12:00 97 Room Air 02/02/17 08:00 97 Room Air 02/02/17 07:59 36.7 74 16 129/81 (97) 97 Room Air 02/02/17 04:00 Room Air 02/02/17 03:54 36.7 80 18 130/83 (99) 97 Room Air 02/02/17 00:01 Room Air 02/01/17 23:20 37.0 79 19 126/79 (95) 96 Room Air 02/01/17 20:00 96 Room Air 02/01/17 19:30 37.1 79 18 157/88 (111) 96 Room Air 02/01/17 16:00 Room Air 02/01/17 15:57 37.4 75 16 143/84 (103) 95 Room Air Physical Exam General Appearance: no apparent distress Respiratory/Chest: chest non-tender, lungs clear, normal breath sounds, no respiratory distress, no accessory muscle use Cardiovascular: regular rate, rhythm, no edema, no murmur Abdomen: normal bowel sounds, non tender, soft Neurologic/Psychiatric: complaint specialist II-XII nml as tested, no motor/sensory deficits, alert, normal mood/affect, oriented x 3 Laboratory Results Last 24 Hours Test 02/01/17 16:25 02/01/17 20:54 02/02/17 06:16 02/02/17 06:18 Bedside Glucose 138 mg/dl 132 mg/dl 121 mg/dl White Blood Count 8.66 K/uL Red Blood Count 3.15 M/uL Hemoglobin 8.5 g/dL Hematocrit 26.2 % Mean Corpuscular Volume 83.2 fL Mean Corpuscular Hemoglobin 27.0 pg Mean Corpuscular Hemoglobin Concent 32.4 g/dl RDW Standard Deviation 46.3 fL RDW Coefficient of Variation 15.3 % Platelet Count 289 K/uL Mean Platelet Volume 9.9 fL Sodium Level 142 mmol/L Potassium Level 3.6 mmol/L Chloride Level 107 mmol/L Carbon Dioxide Level 28 mmol/L Anion Gap 6.0 mmol/L Blood Urea Nitrogen 17 mg/dl Creatinine 0.79 mg/dl Est Creatinine Clear Calc Drug Dose 85.8 ml/min Estimated GFR () 98.4 Estimated GFR (Non- 84.9 BUN/Creatinine Ratio 20.9 Random Glucose 118 mg/dl Calcium Level 8.6 mg/dl Test 02/02/17 11:24 Bedside Glucose 141 mg/dl Assessment and Plan This is a 56 year old female with a PMH of DM2, HTN, HLD, recent breast reduction surgery performed at [place] - presented with slurred speech Acute CVA 02/02 plan to d/c home today outpatient ADRIAN outpatient PCP follow-up to be discharged with Plavix started on low dose Lipitor - to be tapered up as per outpatient providers outpatient neurology follow-up in 3-4 weeks 02/01 Brain MRI suggests multiple small infarcts primarily in the subcortical white matter of the bilateral cerebral hemispheres started on Plavix appreciate neurology input started on low dose statin; will increase as tolerated continue PT/OT/speech - stroke protocol monitor in tele carotid U/S negative unfortunately, echo was limited due to recent breast reduction surgery further input as per neurology DM2 Ha1c = 6.5% takes metformin at home hold oral agents, start Lantus and sliding scale HTN blood pressure in the 140s-150s currently we can allow some elevation in SBP, but will need tighter control as outpatient continue clonidine and Cozaar for now Depression/Anxiety continue current medications DVT ppx SCDs, monitor for bleeding due to recent surgery FULL CODE
[2017-02-02] MEDS ORDERED: LPT40 PO (15:21)
[2017-02-02] MEDS ORDERED: PLV75 PO (15:21)
[2017-02-02 15:24] VITALS: BP 119/76; PULSE 77; TEMP 36.6; O2SAT 97
--- NOTE | 2017-02-02 15:24 | Discharge Instructions ---
Discharge Instructions Date of Service Feb 02, 2017. Admission Reason for Admission: Stroke-Like Symptom Discharge Discharge Diagnosis / Problem: Acute Stroke Discharge Goals Goal(s): Decrease discomfort, Improve function, Diagnostic testing, Therapeutic intervention Activity Recommendations Activity Limitations: resume your previous activity . Instructions / Follow-Up Instructions / Follow-Up Please follow-up with Dr. Navya Henson on February 07 at 1:15PM * You will be started on Plavix - take this daily * You will be started on Lipitor - this medication dose should be increased as an outpatient * You will need an outpatient ADRIAN (echocardiogram) with cardiology * You should follow-up with Dr. Damon, neurology, in 3-4 weeks Risk Factors for Stroke: You can reduce your chances of stroke by working with your medical provider to adopt a healthy lifestyle. Some specific ways to lower your chance of stroke are: * If you are a smoker, now is the time to stop smoking cigarettes * If you are diabetic, improve the control of your blood sugars * Avoid excessive amounts of alcohol * Control high blood pressure * Lose weight if you are overweight * Be sure to lead an active lifestyle * Eat a healthy diet low in salt, cholesterol and fat You should know about other risk factors for stroke that you are unable to control. These include: * Age 55 years or older * Male gender * Certain racial groups: , or / * Family History of Stroke, Mini stroke or Heart Attack * Sickle Cell Disease Follow Up: It is important for you to keep your follow up appointments with your medical provider. Current Hospital Diet Patient's current hospital diet: AHA Diet (Heart Healthy), Diabetes Type 2 Diet Discharge Diet Recommended Diet: AHA Diet (Heart Healthy), Diabetes Type 2 Diet Pending Studies Studies pending at discharge: no Laboratory Results Hemoglobin A1c Test 02/01/17 07:03 Range/Units Estimated Average Glucose 140 mg/dl Hemoglobin A1c 6.5 H 4.5-5.6 % Lipid Panel Test 02/01/17 07:03 Range/Units Triglycerides Level 154 H 0-150 mg/dl Cholesterol Level 196 0-200 mg/dl HDL Cholesterol 33 mg/dl Cholesterol/HDL Ratio 5.9 LDL Cholesterol, Calculated 132 mg/dl Medical Emergencies . Who to Call and When: Medical Emergencies: Call 911 immediately if you experience any of the following warning signs and symptoms of Stroke: * Sudden numbness or weakness of the face, arm or leg, especially on one side of the body * Sudden confusion, trouble speaking or understanding * Sudden trouble seeing in one or both eyes * Sudden trouble walking, dizziness, loss of balance or coordination * Sudden severe headache with no cause Do not delay calling 911 if you experience any warning signs or symptoms of a stroke. Delay in seeking medical attention may affect what treatments can be given to you. . Non-Emergent Contact Non-Emergency issues call your: Primary Care Provider . . "Provider Documentation" section prepared by [facility] [place]. . Stroke Core Measures Reason no t-PA for Stroke: Treatment not indicated Reason no antithrom by day 2: Treatment provided - N/A Reason no antithrom at D/C: Treatment provided - N/A Reason no statin at D/C: Treatment provided - N/A Reason no anticoag w/a fib: Treatment not indicated VTE Core Measure Inpt VTE Proph given/why not?: SCD's
--- NOTE | 2017-02-02 15:30 | Discharge Summary ---
Discharge Summary Date of Service Feb 02, 2017. Discharge Summary Admission Date: Jan 31, 2017 at 12:04 Discharge Date: Feb 02, 2017 Discharge Disposition: Home Principal Diagnosis: Acute CVA Medication Reconciliation New Medications: Atorvastatin (Atorvastatin Calcium) 40 Mg Tab 20 MG PO QAM for 30 Days, #15 TAB Clopidogrel Bisulfate (Clopidogrel) 75 Mg Tab 75 MG PO QAM for 30 Days, #30 TAB Continued Medications: Albuterol Hfa (Ventolin Hfa) 200 Puffs/23306 Mcg Aers 2 PUFFS INH Q6H PRN for SOB/Wheezing Albuterol Sulf (Proventil 0.083% 2.5MG/3ML) 2.5 Mg/3 Ml Nebu 2.5 MG INH Q6H PRN for SOB/Wheezing Buspirone Hcl (Buspirone Hcl) 10 Mg Tab 10 MG PO BID, TAB Clonidine Hcl (Catapres) 0.3 Mg Tab 0.3 MG PO BID Fluticasone Prop/Salmeterol (Advair Diskus 500/50 60 Dose) 1 Ea Aerp 1 PUFF INH BID Gabapentin (Neurontin) 300 Mg Cap 0 PO UD 1 pill each morning 1 pill at noon 2 pills at bedtime Losartan Potassium (Cozaar) 100 Mg Tab 100 MG PO QAM Metformin Ext Rel (Glucophage Ext Rel) 500 Mg Tab 500 MG PO DAILY, TAB Multivitamin (Multivitamin) Tab 1 TAB PO QAM Omeprazole (Prilosec) 40 Mg Cap 40 MG PO DAILY, CAP Oxycodone Ir (Roxicodone Ir) 5 Mg Tab 1-2 TAB PO Q4H PRN for Severe Pain, TAB Polyethylene Glycol 3350 (Miralax) 1 Pow Pow 17 GM PO DAILY PRN for Constipation Sertraline (Zoloft) 100 Mg Tab 100 MG PO QAM Admission Information HPI (per Admitting provider): 56-year-old female followed by Dr. Navya Henson for Family Medicine. History of hypertension, diabetes mellitus type 2, dyslipidemia, and other problems noted below. Bilateral breast reduction surgery performed at [facility] by Dr. Karimi 2 days prior to admission. Patient was discharged to home yesterday around noon. Daughter noticed slurred speech, confusion, and poor and coordination when they arrived at her home. Symptoms persisted, so patient was brought to the ED today for evaluation. No headache. No diplopia. No dysphagia. Ambulating, but a bit unsteady. Has only taken 1 or 2 doses of oxycodone since returning home. No alcohol consumption. . Physical Exam (per Admitting): General Appearance: no apparent distress, + obese Head: normocephalic, atraumatic Eyes: normal inspection, PERRL, EOMI, sclerae normal (eyelids and conjunctivae normal) ENT: hearing grossly normal, + pertinent finding (poor dentition, no upper teeth) Neck: supple, no adenopathy, thyroid normal, no JVD, no carotid bruits, trachea midline Respiratory/Chest: lungs clear, no respiratory distress, no accessory muscle use Cardiovascular: regular rate, rhythm, no edema, no gallop, no JVD, normal peripheral pulses, + systolic murmur (1/6 systolic murmur at base) Abdomen/GI: normal bowel sounds, non tender, soft, no organomegaly, no pulsatile mass Extremities/Musculoskelatal: no calf tenderness, normal capillary refill, no pedal edema Neurologic/Psych: + pertinent finding (somewhat somnolent, dysarthric, mild confusion, mild right facial droop, motor strength upper and lower extremities essentially 5/5, mild difficulty with finger to nose bilaterally; mild difficulty with [id number] bilaterally; patellar reflexes 1/2 bilaterally; plantar reflexes equivocally upgoing bilaterally; sensation to light touch lower extremities intact bilaterally) Skin: normal color, warm/dry, no rash Lymphatic: no adenopathy (cervical) Physical Exam (per Admitting): Breasts: Status post bilateral breast reductions; incisions with surrounding ecchymosis, but no significant erythema or drainage; bilateral surgical drains draining serosanguineous fluid. Hospital Course This is a 56 year old female with a PMH of DM2, HTN, HLD, recent breast reduction surgery performed at [facility] - presented with slurred speech Acute CVA 02/02 plan to d/c home today outpatient ADRIAN outpatient PCP follow-up to be discharged with Plavix started on low dose Lipitor - to be tapered up as per outpatient providers outpatient neurology follow-up in 3-4 weeks 02/01 Brain MRI suggests multiple small infarcts primarily in the subcortical white matter of the bilateral cerebral hemispheres started on Plavix appreciate neurology input started on low dose statin; will increase as tolerated continue PT/OT/speech - stroke protocol monitor in tele carotid U/S negative unfortunately, echo was limited due to recent breast reduction surgery further input as per neurology DM2 Ha1c = 6.5% takes metformin at home hold oral agents, start Lantus and sliding scale HTN blood pressure in the 140s-150s currently we can allow some elevation in SBP, but will need tighter control as outpatient continue clonidine and Cozaar for now Depression/Anxiety continue current medications DVT ppx SCDs, monitor for bleeding due to recent surgery FULL CODE Total time spent on discharge = 45 minutes This includes examination of the patient, discharge planning, medication reconciliation, and communication with other providers. Discharge Instructions Please follow-up with Dr. Navya Henson on February 07 at 1:15PM * You will be started on Plavix - take this daily * You will be started on Lipitor - this medication dose should be increased as an outpatient * You will need an outpatient ADRIAN (echocardiogram) with cardiology * You should follow-up with Dr. Damon, neurology, in 3-4 weeks
--- NOTE | 2017-02-02 17:48 | PROGRESS NOTE ---
DATE: 02/02/2017 I saw Gabi today, she is feeling well. She has no headache. There is no focal neurologic deficits and the deficit she had were very transient consistent mainly of the variable dysarthria which is now gone. She was found to have multiple "watershed infarctions" on MRI, but frankly I think these are probably multiple emboli. She had no history of hypotension that would have produced hypoperfusion and a true watershed type of infarction distribution and frankly with a punctate nature of these I would prefer multiple emboli. They are hemispheric therefore implying an origin at least at or below the level of the arota and Dr. Ferrara has seen her in cardiology and agrees that in light of the fact we cannot do a transthoracic echo with any degree in reliability. We need to move ahead with a transesophageal and he is going to do this outpatient basis. She can be discharged therefore on Plavix. A full hypercoagulability workup has been done. We found no evidence for DVT on searching for this in her lower extremities by ultrasound and frankly I am still not certain that this was not fat emboli as this has been reported in reduction mammoplasties and other plastic procedures and certainly would be one explanation for her malaise and then the sudden appearance of neurologic deficits that cleared rapidly. Even if these were fat emboli, we still have to be certain that there is no right to left communication and most likely would be a patent foramen ovale which would be detected by transesophageal echo. The test will also serve to check for atheromatous plaque in aorta. It would not address the potential of a pulmonary AVM, but this is something that could be addressed on an outpatient basis if it is felt to be important. In addition to following up with Dr. Ferrara for the procedure, I am going to suggest that neurology see her back in about 3-4 weeks at which point the results of the hypercoagulability profile should be available. She would therefore be discharged on Plavix and we can decide on how long to maintain this agent in the future depending on what comes out of the evaluation. PRESTON
[2017-02-06 22:19] LABS: ANTITHROMBINIII ACTIVITY** 117 % activity (80-120); B2 GLYCOPROTEIN IGA <9 SAU (<=20); B2 GLYCOPROTEIN IGG <9 SGU (<=20); B2 GLYCOPROTEIN IGM <9 SMU (<=20); LUPUS ANTICOAGULANT** TC36573X Weak Positive (Negative); PROTEIN C ACTIVITY** TC 1777X 114 % (70-180); PROTEIN S ACT(FUNCT)**1779X 65 % (60-140)
== END 2017-02-02 16:40 | disposition home or self-care (01) | DRG 66 ==
LOC: C.EDB 09:44 → C.2T 12:04 → ENRESERV 12:18
PROVIDERS: ADMIT Hospitalist; ATTEND Family Medicine
DX: I63.9 Cerebral infarction, unspecified (principal); F41.9 Anxiety disorder, unspecified; J45.909 Unspecified asthma, uncomplicated; F32.9 Major depressive disorder, single episode, unspecified; K21.9 Gastro-esophageal reflux disease without esophagitis; I10 Essential (primary) hypertension; E78.5 Hyperlipidemia, unspecified; E11.9 Type 2 diabetes mellitus without complications; D72.829 Elevated white blood cell count, unspecified; Z90.710 Acquired absence of both cervix and uterus

== ENCOUNTER 2017-07-22 19:13 | Inpatient (IN) | payer OTHER ==
[~2017-07-22] VITALS: Ht 149.9 cm; Wt 101.5 kg
[~2017-07-22 19:13] MED LIST changes: +ATOR-24 PO; +BUSP-8 PO; +METF-382 PO; -OMEP20TA14 PO; +OMEP40CA41 PO; +PLV75 PO; -TRAZ50TA35 PO
[2017-07-22 20:17] LABS: BASO % 0.4 %; BASO ABS # 0.04 K/uL (0-0.2); EOS % 2.6 %; EOS ABS # 0.29 K/uL (0-0.5); HEMATOCRIT 35.2 % (37-47); HEMOGLOBIN 11.2 g/dL (12.0-16.0); IG# 0.05 K/uL (0.00-0.02); LYMPH % 10.4 %; LYMPH ABS # 1.16 K/uL (1.2-3.4); MEAN CELL VOLUME 72.9 fL (80-100); MEAN CORPUSCULAR HEMOGLOBIN 23.2 pg (25-34); MEAN CORPUSCULAR HGB CONC 31.8 g/dl (32-36); MEAN PLATELET VOLUME 9.3 fL (7.4-10.4); MONO % 4.8 %; MONO ABS # 0.53 K/uL (0.11-0.59); NEUT % 81.3 %; NEUT ABS # 9.04 K/uL (1.4-6.5); PLATELET COUNT 302 K/uL (130-400); RED CELL DISTRIBUTION WIDTH CV 17.8 % (11.5-14.5); RED CELL DISTRIBUTION WIDTH SD 47.4 fL (36.4-46.3); WHITE BLOOD COUNT 11.11 K/uL (4.8-10.8)
[2017-07-22 20:31] LABS: PTT PATIENT 25.3 SECONDS (21.0-31.0)
[2017-07-22 20:42] LABS: ALBUMIN 3.6 gm/dl (3.4-5.0); ALT/SGPT 29 U/L (12-78); AST/SGOT 17 U/L (15-37); BLOOD UREA NITROGEN 15 mg/dl (7-18); CALCIUM 8.6 mg/dl (8.5-10.1); CARBON DIOXIDE 30 mmol/L (21-32); CREATININE 0.99 mg/dl (0.60-1.20); GLUCOSE 225 mg/dl (70-99); POTASSIUM 3.6 mmol/L (3.5-5.1); SODIUM 138 mmol/L (136-145)
[2017-07-22] MEDS ORDERED: CLONIDINE HCL 0.3 MG TAB PO STA (20:45)
--- NOTE | 2017-07-22 20:52 | DIAGNOSTIC IMAGING REPORT ---
CHEST ONE VIEW PORTABLE CLINICAL HISTORY: dyspnea, hypertension COMPARISON STUDY: Chest radiograph February 01, 2017. FINDINGS: Lung volumes are mildly diminished. There is mild elevation of the right hemidiaphragm. No pneumothorax or pleural effusion is noted. There is no consolidation. There is pulmonary vascular congestion without overt edema. There is moderate enlargement of the cardiac silhouette. Apparent interval increase since prior exam is noted. IMPRESSION: 1. Pulmonary vascular congestion without overt edema. 2. Moderate enlargement of the cardiac silhouette, apparent interval increase since prior exam may be related to a hypoventilatory study. Electronically signed by: Myles Caputo M.D. 07/22/2017 8:50 PM Dictated Date/Time: 07/22/2017 8:49 PM
[2017-07-22 20:53] LABS: ALKALINE PHOSPHATASE 185 U/L (45-117); CKMB 1.1 ng/ml (0.5-3.6); TOTAL PROTEIN 7.7 gm/dl (6.4-8.2)
[2017-07-22 21:03] LABS: INFLUENZA B ANTIGEN Neg for Influ B (NEG)
[2017-07-22] MEDS ORDERED: AMLODIPINE BESYLATE 5 MG TAB PO STA ×2 (22:03→23:52)
[2017-07-22] MEDS ORDERED: OPTIRAY 320 IV PRN (23:00)
[2017-07-23] VITALS (8 sets, daily range): BP systolic 110–195; BP diastolic 63–100; PULSE 71–82; TEMP 36.5–36.8; O2SAT 91–97; Ht 149.9 cm; Wt 101.5 kg
[2017-07-23] MEDS ORDERED: SITA25TA PO (00:14)
[2017-07-23] MEDS ORDERED: CLOP1TAB15 PO (00:15)
--- NOTE | 2017-07-23 00:30 | EMERGENCY ROOM VISIT NOTE ---
History First contact with patient: 19:28 Chief Complaint: HYPERTENSION Stated Complaint: SHORTNESS OF BREATH,ELEVATED BLOOD PRESSURE, SUGAR History of Present Illness The patient is a 57 year old female who presents to the Emergency Room via private vehicle accompanied by female with complaints of "shortness of breath, elevated blood pressure, sugar". The patient states that her blood pressure and sugar has been elevated for the past week. She notes a minimal intermittent nonexertional chest pain. She has had shortness of breath 3 days. She felt dizzy today. She also had a headache 3 days ago. She is on Plavix. She notes no chest pain at this current time. No dysuria. She has been compliant with her underlying medications. She notes a history of CVA in the past following a procedure back in January. Review of Systems A complete 10-point Review of Systems was discussed with the patient, with pertinent positives and negatives listed in the History of Present Illness. All remaining Review of Systems questions can be considered negative unless otherwise specified. Past Medical/Surgical History Medical Problems: (1) Anxiety (2) Asthma (3) Borderline high cholesterol (4) Depression (5) Diabetes mellitus, type 2 (6) Dyslipidemia (7) GERD (gastroesophageal reflux disease) (8) Hypertension Surgical Problems: (1) History of hysterectomy (2) Status post bilateral breast reduction Family History Colon cancer FATHER Diabetes mellitus MOTHER Social History Smoking Status: Never Smoker Marital Status: Occupation Status: disabled Current/Historical Medications Scheduled Atorvastatin (Lipitor), 40 MG PO DAILY Buspirone Hcl (Buspirone Hcl), 10 MG PO BID Clonidine Hcl (Catapres), 0.3 MG PO BID Clopidogrel (Plavix), 75 MG PO DAILY Clopidogrel Bisulfate (Clopidogrel), 75 MG PO QAM Fluticasone Prop/Salmeterol (Advair Diskus 500/50 60 Dose), 1 PUFF INH BID Gabapentin (Neurontin), 0 PO UD Losartan Potassium (Cozaar), 100 MG PO QAM Metformin Ext Rel (Glucophage Ext Rel), 500 MG PO DAILY Multivitamin (Multivitamin), 1 TAB PO QAM Omeprazole (Prilosec), 40 MG PO DAILY Sertraline (Zoloft), 100 MG PO QAM Sitagliptin (Januvia), Unknown Dose PO DAILY Scheduled PRN Albuterol Hfa (Ventolin Hfa), 2 PUFFS INH Q6H PRN for SOB/Wheezing Albuterol Sulf (Proventil 0.083% 2.5MG/3ML), 2.5 MG INH Q6H PRN for SOB/Wheezing Polyethylene Glycol 3350 (Miralax), 17 GM PO DAILY PRN for Constipation Physical Exam Vital Signs Date Time Temp Pulse Resp B/P (MAP) Pulse Ox O2 Delivery O2 Flow Rate FiO2 07/23/17 00:41 74 18 195/104 98 Room Air 07/23/17 00:02 75 07/22/17 23:30 36.5 74 18 197/95 98 Room Air 07/22/17 22:37 70 189/107 98 Room Air 07/22/17 21:56 76 198/108 97 Room Air 07/22/17 21:13 75 207/97 07/22/17 20:36 76 201/118 97 Room Air 07/22/17 20:30 76 07/22/17 19:45 98 Room Air 07/22/17 19:32 83 226/104 98 Room Air 07/22/17 19:23 36.8 79 18 207/112 96 Room Air Physical Exam VITAL SIGNS - Vital signs and nursing notes were reviewed. Hypertensive. GENERAL -57-year-old female appearing her stated age who is in no acute distress. Communicates well with provider and answers questions appropriately. SKIN - Without rashes. No meningeal or petechial rashes. HEAD - NC/AT. EYES - PERRL with EOMI bilaterally. Sclera anicteric. EARS - No deformities of external structures noted on gross examination bilaterally. NOSE - Midline and without cyanosis. No epistaxis or purulent drainage noted. MOUTH/OROPHARYNX - Without perioral cyanosis. LUNGS - Chest wall symmetric without accessory muscle use, intercostals retractions, or central cyanosis. Normal vesicular breath sounds CTA B/L. No wheezes, rales, or rhonchi appreciated. CARDIAC - RRR with S1/S2. No murmur, rubs, or gallops appreciated. EXTREMITIES - No clubbing or peripheral cyanosis. No pretibial edema present. + 5/5 strength noted in UE/LE bilaterally. NEUROLOGIC - Cranial nerves II through XII grossly intact. Sensory intact to light touch throughout. PSYCH - A&O, and cooperates fully with examiner. Pt is very pleasant and interacts well with examiner. Medical Decision & Procedures ER Provider Diagnostic Interpretation: CHEST ONE VIEW PORTABLE CLINICAL HISTORY: dyspnea, hypertension COMPARISON STUDY: Chest radiograph February 01, 2017. FINDINGS: Lung volumes are mildly diminished. There is mild elevation of the right hemidiaphragm. No pneumothorax or pleural effusion is noted. There is no consolidation. There is pulmonary vascular congestion without overt edema. There is moderate enlargement of the cardiac silhouette. Apparent interval increase since prior exam is noted. IMPRESSION: 1. Pulmonary vascular congestion without overt edema. 2. Moderate enlargement of the cardiac silhouette, apparent interval increase since prior exam may be related to a hypoventilatory study. Electronically signed by: Myles Caputo M.D. 07/22/2017 8:50 PM Dictated Date/Time: 07/22/2017 8:49 PM CTA of the chest: No pulmonary emboli identified. No aortic aneurysm or dissection. No acute pulmonary parenchymal abnormality identified. Mild subsegmental atelectasis versus scarring in the lingula and right middle lobe. Radiologist: Yumiko Baeza M.D.. Laboratory Results 07/22/17 19:50 Red Blood Count 4.83, Mean Corpuscular Volume 72.9, Mean Corpuscular Hemoglobin 23.2, Mean Corpuscular Hemoglobin Concent 31.8, Mean Platelet Volume 9.3, Neutrophils (%) (Auto) 81.3, Lymphocytes (%) (Auto) 10.4, Monocytes (%) (Auto) 4.8, Eosinophils (%) (Auto) 2.6, Basophils (%) (Auto) 0.4, Neutrophils # (Auto) 9.04, Lymphocytes # (Auto) 1.16, Monocytes # (Auto) 0.53, Eosinophils # (Auto) 0.29, Basophils # (Auto) 0.04 07/22/17 19:50 Test 07/22/17 19:38 07/22/17 19:50 07/22/17 19:58 Bedside Glucose 268 mg/dl (70-90) White Blood Count 11.11 K/uL (4.8-10.8) Red Blood Count 4.83 M/uL (4.2-5.4) Hemoglobin 11.2 g/dL (12.0-16.0) Hematocrit 35.2 % (37-47) Mean Corpuscular Volume 72.9 fL (80-100) Mean Corpuscular Hemoglobin 23.2 pg (25-34) Mean Corpuscular Hemoglobin Concent 31.8 g/dl (32-36) Platelet Count 302 K/uL (130-400) Mean Platelet Volume 9.3 fL (7.4-10.4) Neutrophils (%) (Auto) 81.3 % Lymphocytes (%) (Auto) 10.4 % Monocytes (%) (Auto) 4.8 % Eosinophils (%) (Auto) 2.6 % Basophils (%) (Auto) 0.4 % Neutrophils # (Auto) 9.04 K/uL (1.4-6.5) Lymphocytes # (Auto) 1.16 K/uL (1.2-3.4) Monocytes # (Auto) 0.53 K/uL (0.11-0.59) Eosinophils # (Auto) 0.29 K/uL (0-0.5) Basophils # (Auto) 0.04 K/uL (0-0.2) RDW Standard Deviation 47.4 fL (36.4-46.3) RDW Coefficient of Variation 17.8 % (11.5-14.5) Immature Granulocyte % (Auto) 0.5 % Immature Granulocyte # (Auto) 0.05 K/uL (0.00-0.02) Prothrombin Time 10.0 SECONDS (9.0-12.0) Prothromb Time International Ratio 1.0 (0.9-1.1) Activated Partial Thromboplast Time 25.3 SECONDS (21.0-31.0) Partial Thromboplastin Ratio 1.0 D-Dimer 520 ug/L FEU (0-500) Anion Gap 5.0 mmol/L (3-11) Est Creatinine Clear Calc Drug Dose 68.1 ml/min Estimated GFR () 74.4 Estimated GFR (Non- 64.2 BUN/Creatinine Ratio 15.2 (10-20) Calcium Level 8.6 mg/dl (8.5-10.1) Magnesium Level 2.1 mg/dl (1.8-2.4) Total Bilirubin 0.4 mg/dl (0.2-1) Aspartate Amino Transf (AST/SGOT) 17 U/L (15-37) Alanine Aminotransferase (ALT/SGPT) 29 U/L (12-78) Alkaline Phosphatase 185 U/L (45-117) Total Creatine Kinase 102 U/L (26-192) Creatine Kinase MB 1.1 ng/ml (0.5-3.6) Creatine Kinase MB Ratio 1.1 (0-3.0) Troponin I < 0.015 ng/ml (0-0.045) Total Protein 7.7 gm/dl (6.4-8.2) Albumin 3.6 gm/dl (3.4-5.0) Globulin 4.1 gm/dl (2.5-4.0) Albumin/Globulin Ratio 0.9 (0.9-2) Thyroid Stimulating Hormone (TSH) 0.597 uIu/ml (0.300-4.500) Influenza Type A Antigen Neg for Influ A (NEG) Influenza Type B Antigen Neg for Influ B (NEG) Urine Color YELLOW Urine Appearance CLEAR (CLEAR) Urine pH 7.5 (4.5-7.5) Urine Specific [place] 1.021 (1.000-1.030) Urine Protein NEG (NEG) Urine Glucose (UA) 3+ (NEG) Urine Ketones NEG (NEG) Urine Occult Blood NEG (NEG) Urine Nitrite NEG (NEG) Urine Bilirubin NEG (NEG) Urine Urobilinogen NEG (NEG) Urine Leukocyte Esterase NEG (NEG) Medications Administered Medications (Trade) Dose Ordered Sig/Yola Route Start Time Stop Time Status Last Admin Dose Admin Clonidine HCl (Catapres Tab) 0.3 mg NOW STAT PO 07/22/17 20:45 07/22/17 20:46 DC 07/22/17 21:12 0.3 MG Amlodipine Besylate (Norvasc Tab) 5 mg NOW STAT PO 07/22/17 22:03 07/22/17 22:04 DC 07/22/17 22:11 5 MG Amlodipine Besylate (Norvasc Tab) 5 mg NOW STAT PO 07/22/17 23:52 07/22/17 23:53 DC 07/22/17 23:56 5 MG Medical Decision Patient was seen and evaluated as above in room C5. She presents to us today with shortness of breath, hyperglycemia, hypertension, and intermittent chest pain. Review was performed of nursing notes and vital signs. After obtaining a thorough history and physical examination the above work up was performed. Chest x-ray was obtained. Results as above. Interval increase in cardiac silhouette size. Bedside EKG was performed and per my interpretation reveals normal sinus rhythm, rate of 78 bpm. This was compared with EKG performed on January 31, 2017 and no significant change was found. CBC reveals slight leukocytosis 11.11. Hemoglobin 11.2. Coags normal. D-dimer elevated. CT of the chest was performed. This was found to be negative. Glucose 268 POC and then on lab draw to 25. No evidence of kidney or liver failure. Alk phos high at 185. TSH normal. Urine reveals 3+ glucose. Flu test negative. While here for her hypertension she was given 1 of her clonidine tablets as this was due with minimal decrease in her blood pressure. She was having given Norvasc 5 mg 2. No improvement in nearly 6 hours with a blood pressure. She has numerous allergies which prevent us from utilizing some IV antihypertensive agents. Her heart rate is also at the lower range of normal therefore not wanting to utilize beta blockers. Because of her risk factors of diabetes, recent CVA, hypertension, and dyslipidemia do believe that further evaluation in the inpatient setting is warranted. Furthermore, I did attempt to review previous cardiac workups. She had a transthoracic echo performed here late last year however it was limited secondary to her recent breast reduction surgery. She was scheduled for a transesophageal echo however this has not been performed yet. She notes that she is due at any time for this. Case was discussed with the attending physician. I attest that I have personally reviewed the patient medication list. I attest that I have reviewed the patient's blood pressure and it was found to be elevated and will be further managed in the inpatient setting.. In the evaluation and treatment of this patient the following differential diagnoses were entertained: [place], PE, peritonitis, costochondritis, pneumonia, hypertensive urgency, among others. Impression Primary Impression: Hypertension Additional Impression: Anemia Departure Information Referrals Navya Henson D.O. (PCP) Patient Instructions My [facility] Problem Qualifiers
--- NOTE | 2017-07-23 00:54 | EMERGENCY ROOM VISIT NOTE ---
ED Visit Note First contact with patient: 19:28 Patient was seen by our PA/HOT [employer]ER HELPER. I was involved in the patient's care and did evaluate the patient myself. I was involved in the care throughout the ER stay. The patient presents with a higher blood pressure and just not feeling well for a few days. Workup here was reassuring however, we had a very difficult time controlling her blood pressure. She has been here now for almost 6 hours and the pressure is still high. She does have risk factors for stroke and heart disease, at this point, admission/observation is warranted. The on-call hospitalist will be consulted.
[2017-07-23] MEDS ORDERED: LOSARTAN POTASSIUM 50 MG TAB PO ONE (00:56)
[2017-07-23 01:46] LABS: LIPASE 151 U/L (73-393)
[2017-07-23] MEDS ORDERED: TRAMADOL HCL 50 MG TAB PO PRN (02:30)
[2017-07-23] MEDS ORDERED: GLUCOSE 40% GEL 15 GM TUBE PO PRN (02:30)
[2017-07-23] MEDS ORDERED: LORAZEPAM 2 MG/ML 1 ML VIAL IV PRN (02:30)
[2017-07-23] MEDS ORDERED: PROCHLORPERAZINE INJ 5 MG in SYRINGE 4 ML IV PRN (02:30)
[2017-07-23] MEDS ORDERED: GLUCOSE 10 TABS/TUBE PO PRN (02:30)
[2017-07-23] MEDS ORDERED: DEXTROSE 50% 50 ML SYR IV PRN (02:30)
[2017-07-23] MEDS ORDERED: NITROGLYCERIN 0.4 MG SL PER TAB CHARGE SL PRN (02:30)
[2017-07-23] MEDS ORDERED: GLUCAGON FOR INJ 1 MG VIAL SQ PRN (02:30)
[2017-07-23] MEDS ORDERED: INSULIN ASPART 100 UNITS/ML 3 ML PEN SC STA (02:46)
[2017-07-23] MEDS ORDERED: NSS + 20MEQ KCL 1000ML 1,000 ML IV ONE (03:00)
[2017-07-23] MEDS ORDERED: INSULIN GLARGINE SOLOSTAR 100 UNITS/ML 3 ML PEN SC ONE (03:30)
[2017-07-23] MEDS ORDERED: POLYETHYLENE (MIRALAX) 17 GM PACK PO PRN (03:30)
[2017-07-23] MEDS: ACETAMINOPHEN 325 MG TAB PO PRN (03:45)
[2017-07-23] MEDS ORDERED: IV FLUIDS COMPLETED PRN (04:30)
[2017-07-23 05:33] LABS: BASO % 0.4 %; BASO ABS # 0.04 K/uL (0-0.2); EOS % 3.1 %; EOS ABS # 0.35 K/uL (0-0.5); HEMATOCRIT 34.9 % (37-47); HEMOGLOBIN 11.1 g/dL (12.0-16.0); IG# 0.06 K/uL (0.00-0.02); LYMPH % 15.5 %; LYMPH ABS # 1.73 K/uL (1.2-3.4); MEAN CELL VOLUME 71.8 fL (80-100); MEAN CORPUSCULAR HEMOGLOBIN 22.8 pg (25-34); MEAN CORPUSCULAR HGB CONC 31.8 g/dl (32-36); MEAN PLATELET VOLUME 9.1 fL (7.4-10.4); MONO % 4.1 %; MONO ABS # 0.46 K/uL (0.11-0.59); NEUT % 76.4 %; NEUT ABS # 8.49 K/uL (1.4-6.5); PLATELET COUNT 303 K/uL (130-400); RED CELL DISTRIBUTION WIDTH SD 47.5 fL (36.4-46.3); WHITE BLOOD COUNT 11.13 K/uL (4.8-10.8)
[2017-07-23 05:50] LABS: ALBUMIN 3.2 gm/dl (3.4-5.0); ALT/SGPT 27 U/L (12-78); AST/SGOT 17 U/L (15-37); BLOOD UREA NITROGEN 12 mg/dl (7-18); CALCIUM 8.8 mg/dl (8.5-10.1); CARBON DIOXIDE 28 mmol/L (21-32); CREATININE 0.95 mg/dl (0.60-1.20); GLUCOSE 192 mg/dl (70-99); POTASSIUM 3.4 mmol/L (3.5-5.1); SODIUM 137 mmol/L (136-145)
[2017-07-23 05:55] LABS: ALKALINE PHOSPHATASE 160 U/L (45-117); TOTAL PROTEIN 7.2 gm/dl (6.4-8.2)
--- NOTE | 2017-07-23 06:39 | HISTORY & PHYSICAL EXAMINATION ---
DATE OF ADMISSION: 07/23/2017 PRIMARY CARE DOCTOR: Dr. Henson. CHIEF COMPLAINT: Shortness of breath, elevated blood pressure, sugar. HISTORY OF PRESENT ILLNESS: Medical history significant for hypertension, hyperlipidemia, DM2 on oral meds, history of CVA, mood disorder, GERD, anemia. Recent confinement last January 2017 for acute CVA. Watershed infarcts on MRI. A 2D echo during recent confinement was limited secondary to breast surgery. ADRIAN yet to be done. Patient discharged on Plavix. Last week, patient's SBP 180s-200s. Higher than usual Usual SBPs 160s. Patient admits to eating more pretzels than she should be doing, Advil intake for aches. Patient noted intermittent chest tightness, shortness of breath, no coughing, no dizziness. Achy vertical headache symptoms. Patient also complaining of achy upper abdominal discomfort, some nausea, good bowel movement. No black, no bloody stools. At the Emergency Room, BP initially 226-104. Patient given clonidine and amlodipine. SBP currently 190s. Patient more comfortable. MEDICAL HISTORY: As above SURGERIES: Hysterectomy, breast reduction. HOME MEDICATIONS: Include Plavix, albuterol, metformin, sitagliptin, atorvastatin, Buspirone, clonidine, fluticasone, gabapentin, losartan, multivitamins, omeprazole, sertraline. ALLERGIES: DARVOCET, ASPIRIN, BANANA, EGGS, HYDRALAZINE HCTZ. Norvasc causing lower extremity swelling as per patient. FAMILY HISTORY: Cancer, diabetes. PERSONAL AND SOCIAL HISTORY: Past tobacco use. No chronic intake of alcoholic beverages. Disabled. REVIEW OF SYSTEMS: As per HPI. All 10 systems reviewed. All other ROS negative. PHYSICAL EXAMINATION: VITAL SIGNS: Blood pressure was noted to be 236/104, later 195/104, pulse rate noted to be 70, RR 20 ,temperature 37, O2 sats 90 on room air. GENERAL: Noted to be obese, comfortable, no respiratory distress. SKIN: Pallor, warm. HEENT: Pale palpebral conjunctiva. No ptosis. Dry mucosa. NECK: Short, supple. CHEST: Decreased breath sounds. No tenderness. HEART: Regular rate and rhythm, no murmur. ABDOMEN: Some distention, minimal left upper quadrant tenderness. EXTREMITIES: Minimal LE edema, no tenderness. No gross deformity. NEUROLOGIC: Coherent. No gross focality. LABORATORY DATA: Hemoglobin was noted to be 11.3, hematocrit 35, white cells 11 platelets noted to be 302. Sodium noted to be 138, potassium 3.6, chloride 103, CO2 30, BUN 50, creatinine 0.99, glucose was noted to be 225. Troponin was noted to be 0.15. CTA initial read, no PE, no aortic dissection, subsegmental atelectasis. CT head initial read no acute pathology, small vessel ischemic change, sinusitis. CT abdomen and pelvis, trace pericardial fluid, mild cardiomegaly. appendix not visualized, hepatomegaly, prior hysterectomy. EKG as per my interpretation, rate 80 NSR, some T-wave flattening in the inferior and anterior leads. ASSESSMENT: 1. Chest pain, shortness of breath likely secondary to hypertensive urgency Suboptimal control at baseline Possible underlying sleep disordered breathing with daytime somnolence symptoms as per outpatient records. (Patient yet to schedule outpatient sleep study.) Precipitating factors : dietary discretion OTC NSAID drug use. 2. History of cerebrovascular accident, on Plavix. 3. Postop anemia, improved hemoglobin from breast reduction surgery last January 2017 4. DM2 on oral meds blood sugars elevated at the ER Well-controlled on the basis of recent hemoglobin A1C of 6.5 from from January, PLAN: Observation PCU titrate blood pressure medications. Continue losartan at current dose, increase clonidine from b.i.d. to t.i.d. dosing. Patient counseled about need to observe low salt diet for blood pressure control and adverse effects of NSAIDs on BP. Schedule outpatient sleep study. Cardiology consult RE uncontrolled hypertension (Patient known to Dr. Ly.) Basal insulin, ISS BG goal 140-180. Need to recheck Hemoglobin A1c. May need diabetic education pending HgA1c results. DVT prophylaxis, Lovenox SubQ. Full code. MTDD
--- NOTE | 2017-07-23 06:49 | DIAGNOSTIC IMAGING REPORT ---
CT SCAN OF THE ABDOMEN AND PELVIS WITHOUT CONTRAST CLINICAL HISTORY: Diffuse abdominal pain COMPARISON STUDY: No previous studies for comparison. TECHNIQUE: CT scan of the abdomen and pelvis was performed from the lung bases to the proximal femurs. Images are reviewed in the axial, sagittal, and coronal planes. IV contrast was not administered for this examination. A dose lowering technique was utilized adhering to the principles of ALARA. CT DOSE: FINDINGS: Lower chest: A small focal groundglass opacity at the right lung base, likely represents focal atelectatic change Liver: The unenhanced liver is normal in size, contour, and attenuation. There is no intrahepatic biliary ductal dilatation. Gallbladder: Unremarkable. Spleen: Normal in size and attenuation. Pancreas: Unremarkable. Adrenal glands: Unremarkable. Kidneys: There is bilateral renal excretion secondary to a prior contrast-enhanced CT scan. There is no hydronephrosis. There is a 53 mm left renal cyst. Bowel: There are no transition zones indicate bowel obstruction. There is no evidence of acute diverticulitis. The appendix is not visualized with certainty. There are no findings to indicate acute appendicitis. Peritoneum: There is no intraperitoneal free air or abdominal ascites. Vasculature: The abdominal aorta is normal in course and caliber. Adenopathy: None. Pelvic viscera: The uterus is surgically absent. Skeletal structures: No destructive osseous lesions are seen. IMPRESSION: 1. No evidence of bowel obstruction. No evidence of free air 2. No acute inflammatory changes. Electronically signed by: Sohan Galloway M.D. 07/23/2017 6:48 AM Dictated Date/Time: 07/23/2017 6:44 AM
[2017-07-23] MEDS: FLUTICASONE/SALMETEROL (ADVAIR) 500/50 INH 14 PUFF INH SCH ×2 (07:07→21:10)
[2017-07-23] MEDS: ENOXAPARIN 40 MG/0.4 ML SYR SC SCH (07:07)
[2017-07-23] MEDS: MoRPHine SULFATE 4 MG/ML 1 ML CARP\\VIAL IV PRN ×2 (07:07→22:02)
[2017-07-23] MEDS: SERTRALINE HCL 100 MG TAB PO SCH (07:08)
[2017-07-23] MEDS: GABAPENTIN 300 MG CAP PO SCH ×3 (07:08→21:11)
[2017-07-23] MEDS: CLOPIDOGREL BISULFATE 75 MG TAB PO SCH (07:08)
[2017-07-23] MEDS: MULTIVITAMIN TAB PO SCH (07:08)
[2017-07-23] MEDS: PANTOprazole SOD 40 MG TAB PO SCH (07:08)
[2017-07-23] MEDS: ATORVASTATIN 20 MG TAB PO SCH (07:09)
[2017-07-23 07:13] LABS: HEMOGLOBIN A1C 9.2 % (4.5-5.6)
--- NOTE | 2017-07-23 07:25 | DIAGNOSTIC IMAGING REPORT ---
HEAD WITHOUT CONTRAST (CT) CLINICAL HISTORY: 57 years-old Female presenting with diaz, high blood pressure. TECHNIQUE: Multidetector CT imaging of the head was performed without the use of intravenous contrast. IV contrast: None. A dose lowering technique was used consistent with the principles of ALARA (as low as reasonably achievable). COMPARISON: Brain MR from 01/31/[address] head from 01/31/2017. CT DOSE (mGy.cm): The estimated cumulative dose is 2270.27 mGy.cm. FINDINGS: Control System Manager topogram: Unremarkable. Ventricles and sulci normal in size. Periventricular and subcortical white matter hypoattenuation, nonspecific but likely indicative of chronic small vessel ischemic change. No mass effect or midline shift. No hemorrhage or acute territorial infarct. No extra-axial fluid collection. Paranasal sinuses and mastoid air cells clear. Calvarium intact. IMPRESSION: 1. Chronic small vessel ischemic change. No acute intracranial abnormality. Electronically signed by: Rowdy Lao M.D. 07/23/2017 7:24 AM Dictated Date/Time: 07/23/2017 7:20 AM
[2017-07-23] MEDS: INSULIN ASPART 100 UNITS/ML 3 ML PEN SC SCH ×4 (07:55→21:13)
--- NOTE | 2017-07-23 07:58 | DIAGNOSTIC IMAGING REPORT ---
(CHEST FOR PE) ANGIO WITH CLINICAL HISTORY: 57 years-old Female presenting with ^Dyspnea, htn, elevated D dimer ^Dyspnea, htn. TECHNIQUE: Multidetector CT angiography of the chest was performed after administration of intravenous contrast. 3-D volumetric and/or maximum intensity projection (MIP) images were subsequently reconstructed for review. IV contrast: 89 mL of Optiray 320. A dose lowering technique was used consistent with the principles of ALARA (as low as reasonably achievable). COMPARISON: Chest x-ray performed earlier the same day. CT DOSE (mGy.cm): The estimated cumulative dose is 653.42 mGy.cm. FINDINGS: Nutrition Technician topogram: Unremarkable. Pulmonary vasculature: The study is adequate for assessment of the pulmonary vascular tree. No filling defect within the pulmonary arteries to suggest embolus. Main pulmonary artery is not enlarged. No flattening of the interventricular septum. No intracardiac filling defect. No reflux of contrast into the hepatic veins. Remaining chest: On soft tissue windows, architectural distortion of the breast could suggest prior reduction mammoplasty. Normal thyroid. No axillary, supraclavicular, hilar, or mediastinal lymphadenopathy. Normal aorta. Normal heart size. No pericardial or pleural effusion. Hepatic steatosis suggested. On lung windows, minimal groundglass opacity in the lateral basal right lower lobe (series 4 image 65). Minimal additional dependent groundglass opacity. These findings may relate to trace atelectasis. Bandlike opacity in the lingula likely scarring or atelectasis. Trace emphysematous changes at the right apex suggested No other focal infiltrate or nodule. On bone windows, normal osseous structures. IMPRESSION: 1. No evidence of pulmonary embolus. No acute intrathoracic pathology. Electronically signed by: Rowdy Lao M.D. 07/23/2017 7:57 AM Dictated Date/Time: 07/23/2017 7:19 AM
[2017-07-23] MEDS ORDERED: CLONIDINE HCL 0.3 MG TAB PO SCH (09:00)
[2017-07-23] MEDS ORDERED: FELODIPINE 5 MG TABCR PO ONE (10:00)
[2017-07-23] MEDS ORDERED: AMLODIPINE BESYLATE 5 MG TAB PO ONE (10:00)
--- NOTE | 2017-07-23 10:44 | CARDIOLOGY CONSULTATION ---
DATE OF CONSULTATION: 07/23/2017 INPATIENT CARDIOLOGY CONSULTATION REQUESTED BY: Dr. Ray. REASON FOR CONSULTATION: Hypertensive urgency. HISTORY OF PRESENT ILLNESS: Ms. Alfaro is a very pleasant 57-year-old woman who was previously seen by Dr. Ly of our cardiology practice. She presented to [facility] late in the p.m. of 07/22/2017 with a complaint of 3 days of shortness of breath. She states that for several days, she just felt very short of breath, even at rest. She states it would come and go, it would be worse with exertion, but she denied any associated chest pain, palpitations or syncope. On for 07/22/2017, her shortness of breath persisted but she started developing a little lightheadedness and she is being concerned. She has also been checking her blood pressure at home and states she has been significantly out of control, going up into the 190s to 200 range. Upon further questioning, the patient admits that she has been eating about a half bag of pretzels a day for the last week or so, and she has also been taking large amounts of Aleve and Motrin for back discomfort, lately. Of note, the patient was previously seen here by cardiology after suffering from CVA. Transthoracic echocardiogram was unable to be completed at that time due to recent breast reduction surgery and she was tentatively planned for an outpatient ADRIAN. Now, the patient states her surgery is healed and she is feeling back to normal without any further chest discomfort. PAST SURGICAL HISTORY: 1. Breast reduction, bilaterally. 2. Upper endoscopy. 3. Carpal tunnel surgery. 4. Basal cell carcinoma removed from the left shoulder. 5. Total abdominal hysterectomy. MEDICAL ILLNESSES: 1. Hypertension. 2. CVA. 3. Metabolic syndrome. 4. Mild asthma. 5. GERD. 6. Elevated BMI. 7. Anxiety. 8. Depression. 9. Diabetes. FAMILY HISTORY: Denies any premature coronary artery disease or sudden cardiac . SOCIAL HISTORY: Denies any alcohol, tobacco or recreational drug use. She is , lives by herself. REVIEW OF SYSTEMS: As per HPI, all other review of systems reviewed and negative at this time. ALLERGIES: 1. ASPIRIN CAUSES BLISTERS. 2. ATENOLOL CAUSES JOINT PAIN. 3. CRESTOR CAUSES MUSCLE PAIN. 4. EGG PRODUCTS. 5. HCTZ CAUSES A RASH. 6. HYDRALAZINE CAUSES SEVERE MUSCLE PAIN AND WEAKNESS. 7. LATEX CAUSES SHORTNESS OF BREATH, FEVER, AND HIVES. 8. NORVASC CAUSED LOWER EXTREMITY EDEMA. 9. PRAVASTATIN CAUSES MUSCLE PAIN. 10. TRAZODONE CAUSES EDEMA. MEDICATIONS AN OUTPATIENT: 1. Clopidogrel 75 mg daily. 2. Clonidine 0.3 mg b.i.d. 3. Losartan 100 mg daily. 4. Zoloft daily. 5. Januvia daily. 6. Prilosec daily. 7. Metformin daily. 8. Neurontin. 9. BuSpar b.i.d. PHYSICAL EXAMINATION: VITALS: Temperature 36.7, pulse 72, respiratory rate 12, and blood pressure 195/95. GENERAL: Awake, alert, oriented x3 in no acute distress. HEENT: Normocephalic, atraumatic. Pupils equal, round react to light and accommodation. Extraocular muscles intact. Anicteric sclerae. Moist mucous membranes. NECK: No JVD, no bruit. CARDIOVASCULAR: Regular but distant. Unable to appreciate murmurs, rubs or gallops. PULMONARY: Clear to auscultation bilaterally. No rales, rhonchi, or wheezing. ABDOMEN: Bowel sounds x4, soft. No rebound, guarding, tenderness. No organomegaly. EXTREMITIES: No clubbing, cyanosis or edema. +2 pedal pulses bilaterally. SKIN: Warm and dry. TEST RESULTS AND LABORATORY STUDIES OF SIGNIFICANCE: Sodium 137, potassium 3.4, BUN 12, and creatinine 0.95. Troponin negative x2. A 12-lead EKG performed in the Emergency Department independently reviewed at this time shows normal sinus rhythm at 78 beats per minute, normal axis, normal intervals, no signs of active ischemia, nonspecific anterior T-wave flattening. No significant change compared to previous studies. IMPRESSION: 1. Hypertensive urgency, likely due to dietary indiscretion and ongoing nonsteroidal anti-inflammatory drug use. 2. Need for a 2D echocardiogram. 3. Recent cerebrovascular accident. RECOMMENDATIONS: It was my pleasure to see Ms. Alfaro in consultation today. The pathophysiology and risk for heart attack and stroke was discussed with the patient in regards to uncontrolled hypertension. So, given her multiple medical allergies at this point I would like to try her on felodipine 10 mg daily to see if that does not help stabilize her blood pressures because she is on a significant dose of clonidine 0.3 mg b.i.d., which obviously is not an ideal agent. So my goal would be to try and start other medications while decreasing the dose of clonidine. She was initially changed to clonidine t.i.d. upon admission, but again I will start her on felodipine at this time, change clonidine back to b.i.d. and consideration will be given to starting chlorthalidone for blood pressure as well or even spironolactone. Otherwise, given the fact that her chest scars are now healed, we will once again attempt a transthoracic echocardiogram to evaluate for any significant structural abnormalities and further recommendations to follow. The patient will likely benefit from outpatient Lexiscan nuclear stress testing.
--- NOTE | 2017-07-23 12:52 | ECHOCARDIOGRAM REPORT ---
*NOTICE TO RECEIVING LIBERTARIAN AGENCY This information is strictly Confidential and protected under [place] law. [place] law prohibits you from making any further disclosure of this information unless further disclosure is expressly permitted by the written consent of the person to whom it pertains or is authorized by law. A general authorization for the release of medical or other information is not sufficient for this purpose. Hospital accepts no responsibility if the information is made available to any other person, INCLUDING THE PATIENT. Interpretation Summary * Name: TAMIKA HURST Study Date: 07/23/2017 10:30 AM BP: 162/87 mmHg * Patient Location: [facility]\S\[id number]\S\2 HR: 82 * : 1960 (M/d/yyyy) Gender: Female Height: 59 in * Age: 57 yrs Ethnicity: [place] Weight: 222 lb * Ordering Physician: Eulalio Kingston * Referring Physician: Self, Referred * Performed By: Romel Westbrook RCS * * Reason For Study: TORRES * BSA: 1.9 m2 * -- Conclusions -- * Normal LV chamber size with mild concentric LVH. * Normal LV systolic function, EF 60-65%. * No segmental left ventricular wall motion abnormalities are noted. * Grade II diastolic dysfunction. * No significant valvular pathology. * The interatrial septum is intact with no evidence for an atrial septal defect. * Injection of contrast documented no interatrial shunt. Procedure Details * A complete two-dimensional transthoracic echocardiogram was performed (2D, M-mode, Doppler and color flow Doppler). * A saline contrast injection was performed to assess for cardiac shunting. * The injection was performed through an intravenous line in the left arm. * The attending nurse who injected the saline contrast was Sydney Salas RN. * A total of 30 cc of agitated saline was given. Left Ventricle * The left ventricle is normal in size. * There is mild concentric left ventricular hypertrophy. * Ejection Fraction = 60-65%. * Left ventricular systolic function is normal. * No segmental left ventricular wall motion abnormalities are noted. * The left ventricular wall motion is normal. Right Ventricle * The right ventricular cavity size is normal (basal dimension <4.2 cm in right ventricular apical 4-chamber view). * The right ventricular systolic function is normal as assessed by tricuspid annular plane systolic excursion (TAPSE) (normal >1.5 cm). Atria * The left atrium is mildly dilated. * Right atrial size is normal. * The interatrial septum is intact with no evidence for an atrial septal defect. * Injection of contrast documented no interatrial shunt. Mitral Valve * The mitral valve is normal in structure and function. Tricuspid Valve * The tricuspid valve is normal in structure and function. Aortic Valve * The aortic valve is not well visualized. * No hemodynamically significant valvular aortic stenosis. * There is no significant aortic regurgitation. Pulmonic Valve * The pulmonary valve is not well seen, but the Doppler examination is normal without significant regurgitation or stenosis. Great Vessels * The aortic root and proximal ascending aorta are normal sized. Pericardium/Pleural * There is no pericardial effusion. Left Ventricular Diastolic Function * Diastolic dysfunction, Grade II (pseudonormalization pattern). MMode 2D Measurements and Calculations IVSd 1.3 cm IVSs 1.6 cm LVIDd 5.0 cm LVIDs 3.3 cm LVPWd 1.6 cm LVPWs 1.7 cm IVS/LVPW 0.78 FS 32.8 % EDV(Teich) 115.7 ml ESV(Teich) 45.1 ml EF(Teich) 61.0 % EDV(cubed) 121.5 ml ESV(cubed) 36.9 ml EF(cubed) 69.6 % % IVS thick 29.6 % % LVPW thick 6.8 % LV mass(C)d 297.3 grams LV mass(C)dI 154.2 grams/m\S\2 LV mass(C)s 217.7 grams LV mass(C)sI 112.9 grams/m\S\2 SV(Teich) 70.5 ml SI(Teich) 36.6 ml/m\S\2 SV(cubed) 84.6 ml SI(cubed) 43.9 ml/m\S\2 Ao root diam 3.7 cm Ao root area 10.6 cm\S\2 ACS 1.9 cm LA dimension 4.1 cm asc Aorta Diam 3.1 cm LA/Ao 1.1 EDV(MOD-sp4) 104.0 ml ESV(MOD-sp4) 42.6 ml EF(MOD-sp4) 59.1 % EDV(MOD-sp2) 102.4 ml ESV(MOD-sp2) 34.0 ml EF(MOD-sp2) 66.8 % SV(MOD-sp4) 61.4 ml SI(MOD-sp4) 31.9 ml/m\S\2 SV(MOD-sp2) 68.4 ml SI(MOD-sp2) 35.5 ml/m\S\2 Doppler Measurements and Calculations MV E max jewel 109.4 cm/sec MV A max jewel 97.9 cm/sec MV E/A 1.1 MV P1/2t max jewel 109.6 cm/sec MV P1/2t 73.8 msec MVA(P1/2t) 3.0 cm\S\2 MV dec slope 434.8 cm/sec\S\2 MV dec time 0.22 sec Ao V2 max 132.6 cm/sec Ao max PG 7.0 mmHg Ao max PG (full) 3.2 mmHg LV V1 max PG 3.9 mmHg LV V1 max 98.4 cm/sec PA V2 max 77.5 cm/sec PA max PG 2.4 mmHg TR max jewel 131.1 cm/sec
--- NOTE | 2017-07-23 14:42 | Progress Note ---
Medicine Progress Note Date & Time of Visit: Jul 23, 2017 at 14:32. Subjective 57-year-old female admitted for shortness of breath and hypertensive urgency. Denies chest pain overnight. Denies shortness of breath at rest today. Tolerating p.o. Ambulating at baseline. Denies any other symptoms at this time. Objective Last 8 Hrs Date Time Temp Pulse Resp B/P (MAP) Pulse Ox O2 Delivery O2 Flow Rate FiO2 07/23/17 12:15 Room Air 07/23/17 11:47 36.5 78 18 152/81 (104) 93 07/23/17 08:57 82 162/87 (112) 07/23/17 08:45 Room Air 07/23/17 07:28 36.7 72 16 195/95 (128) 95 Room Air Physical Exam: GEN: obese, in no acute distress, alert and appropriate HEENT: NC/AT, normal sclerae, MMM CARDIO: reg rate, S1/2 heard without m/g/r LUNGS: CTA bilaterally, no crackles, rales or wheezes, good diaphragmatic excursion ABD: soft, non-tender, non-distended, no rebound or guarding, +BS EXTREMITY: RP and DP palpable 2+ bilat, no LE swelling or edema, extremities are warm and well-perfused NEURO: CN 2-12 grossly intact, no gross focal deficits. MUSC: moves all extremities equally, no gross focal deficits. SKIN: warm and dry Laboratory Results: 07/23/17 05:09 Red Blood Count 4.86, Mean Corpuscular Volume 71.8, Mean Corpuscular Hemoglobin 22.8, Mean Corpuscular Hemoglobin Concent 31.8, Mean Platelet Volume 9.1, Neutrophils (%) (Auto) 76.4, Lymphocytes (%) (Auto) 15.5, Monocytes (%) (Auto) 4.1, Eosinophils (%) (Auto) 3.1, Basophils (%) (Auto) 0.4, Neutrophils # (Auto) 8.49, Lymphocytes # (Auto) 1.73, Monocytes # (Auto) 0.46, Eosinophils # (Auto) 0.35, Basophils # (Auto) 0.04 07/23/17 05:09 Test 07/22/17 19:50 07/22/17 19:58 07/23/17 05:09 07/23/17 06:00 Prothrombin Time 10.0 SECONDS (9.0-12.0) Prothromb Time International Ratio 1.0 (0.9-1.1) Activated Partial Thromboplast Time 25.3 SECONDS (21.0-31.0) Partial Thromboplastin Ratio 1.0 D-Dimer 520 ug/L FEU (0-500) Estimated Average Glucose 217 mg/dl Hemoglobin A1c 9.2 % (4.5-5.6) Magnesium Level 2.1 mg/dl (1.8-2.4) Total Creatine Kinase 102 U/L (26-192) Creatine Kinase MB 1.1 ng/ml (0.5-3.6) Creatine Kinase MB Ratio 1.1 (0-3.0) Globulin 4.1 gm/dl (2.5-4.0) Albumin/Globulin Ratio 0.9 (0.9-2) Lipase 151 U/L (73-393) Thyroid Stimulating Hormone (TSH) 0.597 uIu/ml (0.300-4.500) Influenza Type A Antigen Neg for Influ A (NEG) Influenza Type B Antigen Neg for Influ B (NEG) Urine Color YELLOW Urine Appearance CLEAR (CLEAR) Urine pH 7.5 (4.5-7.5) Urine Specific [place] 1.021 (1.000-1.030) Urine Protein NEG (NEG) Urine Glucose (UA) 3+ (NEG) Urine Ketones NEG (NEG) Urine Occult Blood NEG (NEG) Urine Nitrite NEG (NEG) Urine Bilirubin NEG (NEG) Urine Urobilinogen NEG (NEG) Urine Leukocyte Esterase NEG (NEG) White Blood Count 11.13 K/uL (4.8-10.8) Red Blood Count 4.86 M/uL (4.2-5.4) Hemoglobin 11.1 g/dL (12.0-16.0) Hematocrit 34.9 % (37-47) Mean Corpuscular Volume 71.8 fL (80-100) Mean Corpuscular Hemoglobin 22.8 pg (25-34) Mean Corpuscular Hemoglobin Concent 31.8 g/dl (32-36) Platelet Count 303 K/uL (130-400) Mean Platelet Volume 9.1 fL (7.4-10.4) Neutrophils (%) (Auto) 76.4 % Lymphocytes (%) (Auto) 15.5 % Monocytes (%) (Auto) 4.1 % Eosinophils (%) (Auto) 3.1 % Basophils (%) (Auto) 0.4 % Neutrophils # (Auto) 8.49 K/uL (1.4-6.5) Lymphocytes # (Auto) 1.73 K/uL (1.2-3.4) Monocytes # (Auto) 0.46 K/uL (0.11-0.59) Eosinophils # (Auto) 0.35 K/uL (0-0.5) Basophils # (Auto) 0.04 K/uL (0-0.2) RDW Standard Deviation 47.5 fL (36.4-46.3) RDW Coefficient of Variation 18.0 % (11.5-14.5) Immature Granulocyte % (Auto) 0.5 % Immature Granulocyte # (Auto) 0.06 K/uL (0.00-0.02) Anion Gap 6.0 mmol/L (3-11) Est Creatinine Clear Calc Drug Dose 70.1 ml/min Estimated GFR () 78.2 Estimated GFR (Non- 67.4 BUN/Creatinine Ratio 12.9 (10-20) Calcium Level 8.8 mg/dl (8.5-10.1) Total Bilirubin 0.6 mg/dl (0.2-1) Direct Bilirubin 0.1 mg/dl (0-0.2) Aspartate Amino Transf (AST/SGOT) 17 U/L (15-37) Alanine Aminotransferase (ALT/SGPT) 27 U/L (12-78) Alkaline Phosphatase 160 U/L (45-117) Troponin I < 0.015 ng/ml (0-0.045) Total Protein 7.2 gm/dl (6.4-8.2) Albumin 3.2 gm/dl (3.4-5.0) Hepatitis C Antibody Screen NEG (NEG) Test 07/23/17 11:45 Bedside Glucose 269 mg/dl (70-90) Last 24 Hours Test 07/22/17 19:38 07/22/17 19:50 07/22/17 19:58 07/23/17 03:07 Bedside Glucose 268 mg/dl 174 mg/dl White Blood Count 11.11 K/uL Red Blood Count 4.83 M/uL Hemoglobin 11.2 g/dL Hematocrit 35.2 % Mean Corpuscular Volume 72.9 fL Mean Corpuscular Hemoglobin 23.2 pg Mean Corpuscular Hemoglobin Concent 31.8 g/dl Platelet Count 302 K/uL Mean Platelet Volume 9.3 fL Neutrophils (%) (Auto) 81.3 % Lymphocytes (%) (Auto) 10.4 % Monocytes (%) (Auto) 4.8 % Eosinophils (%) (Auto) 2.6 % Basophils (%) (Auto) 0.4 % Neutrophils # (Auto) 9.04 K/uL Lymphocytes # (Auto) 1.16 K/uL Monocytes # (Auto) 0.53 K/uL Eosinophils # (Auto) 0.29 K/uL Basophils # (Auto) 0.04 K/uL RDW Standard Deviation 47.4 fL RDW Coefficient of Variation 17.8 % Immature Granulocyte % (Auto) 0.5 % Immature Granulocyte # (Auto) 0.05 K/uL Prothrombin Time 10.0 SECONDS Prothromb Time International Ratio 1.0 Activated Partial Thromboplast Time 25.3 SECONDS Partial Thromboplastin Ratio 1.0 D-Dimer 520 ug/L FEU Sodium Level 138 mmol/L Potassium Level 3.6 mmol/L Chloride Level 103 mmol/L Carbon Dioxide Level 30 mmol/L Anion Gap 5.0 mmol/L Blood Urea Nitrogen 15 mg/dl Creatinine 0.99 mg/dl Est Creatinine Clear Calc Drug Dose 68.1 ml/min Estimated GFR () 74.4 Estimated GFR (Non- 64.2 BUN/Creatinine Ratio 15.2 Random Glucose 225 mg/dl Estimated Average Glucose 217 mg/dl Hemoglobin A1c 9.2 % Calcium Level 8.6 mg/dl Magnesium Level 2.1 mg/dl Total Bilirubin 0.4 mg/dl Aspartate Amino Transf (AST/SGOT) 17 U/L Alanine Aminotransferase (ALT/SGPT) 29 U/L Alkaline Phosphatase 185 U/L Total Creatine Kinase 102 U/L Creatine Kinase MB 1.1 ng/ml Creatine Kinase MB Ratio 1.1 Troponin I < 0.015 ng/ml Total Protein 7.7 gm/dl Albumin 3.6 gm/dl Globulin 4.1 gm/dl Albumin/Globulin Ratio 0.9 Lipase 151 U/L Thyroid Stimulating Hormone (TSH) 0.597 uIu/ml Influenza Type A Antigen Neg for Influ A Influenza Type B Antigen Neg for Influ B Urine Color YELLOW Urine Appearance CLEAR Urine pH 7.5 Urine Specific [place] 1.021 Urine Protein NEG Urine Glucose (UA) 3+ Urine Ketones NEG Urine Occult Blood NEG Urine Nitrite NEG Urine Bilirubin NEG Urine Urobilinogen NEG Urine Leukocyte Esterase NEG Test 07/23/17 05:09 07/23/17 06:00 07/23/17 07:42 07/23/17 11:45 White Blood Count 11.13 K/uL Red Blood Count 4.86 M/uL Hemoglobin 11.1 g/dL Hematocrit 34.9 % Mean Corpuscular Volume 71.8 fL Mean Corpuscular Hemoglobin 22.8 pg Mean Corpuscular Hemoglobin Concent 31.8 g/dl Platelet Count 303 K/uL Mean Platelet Volume 9.1 fL Neutrophils (%) (Auto) 76.4 % Lymphocytes (%) (Auto) 15.5 % Monocytes (%) (Auto) 4.1 % Eosinophils (%) (Auto) 3.1 % Basophils (%) (Auto) 0.4 % Neutrophils # (Auto) 8.49 K/uL Lymphocytes # (Auto) 1.73 K/uL Monocytes # (Auto) 0.46 K/uL Eosinophils # (Auto) 0.35 K/uL Basophils # (Auto) 0.04 K/uL RDW Standard Deviation 47.5 fL RDW Coefficient of Variation 18.0 % Immature Granulocyte % (Auto) 0.5 % Immature Granulocyte # (Auto) 0.06 K/uL Sodium Level 137 mmol/L Potassium Level 3.4 mmol/L Chloride Level 103 mmol/L Carbon Dioxide Level 28 mmol/L Anion Gap 6.0 mmol/L Blood Urea Nitrogen 12 mg/dl Creatinine 0.95 mg/dl Est Creatinine Clear Calc Drug Dose 70.1 ml/min Estimated GFR () 78.2 Estimated GFR (Non- 67.4 BUN/Creatinine Ratio 12.9 Random Glucose 192 mg/dl Calcium Level 8.8 mg/dl Total Bilirubin 0.6 mg/dl Direct Bilirubin 0.1 mg/dl Aspartate Amino Transf (AST/SGOT) 17 U/L Alanine Aminotransferase (ALT/SGPT) 27 U/L Alkaline Phosphatase 160 U/L Troponin I < 0.015 ng/ml Total Protein 7.2 gm/dl Albumin 3.2 gm/dl Hepatitis C Antibody Screen NEG Bedside Glucose 160 mg/dl 269 mg/dl Assessment & Plan 57-year-old female admitted for shortness of breath and hypertensive urgency. Denies chest pain overnight. Denies shortness of breath at rest today. Tolerating p.o. Ambulating at baseline. Denies any other symptoms at this time. 1. Hypertensive urgency-medication outpatient regimen not ideal. Cardiology making adjustments to include the addition of Plendil, continuation of clonidine twice daily with a plan to wean, and losartan. Telemetry review overnight reveals sinus rhythm in the 70s with no events. Of note hyper, hypertension may be secondary to significant insomnia and anxiety as patient has PTSD. She continues on Zoloft 100 every morning and BuSpar 10 p.o. twice daily, however, she has started to have nightmares again. Recommend continued workup per PCP and mental health provider as outpatient. Also may consider polysomnogram with daytime somnolence symptoms reported an outpatient records. 2. Diabetes type 2-A1c uncontrolled on current regimen of metformin XR 500 daily and Januvia. elementary educator has spoken with patient. Plan to increase Metformin and Januvia to Janumet at discharge. Patient is fine with this and tolerates metformin well at this time. As inpatient will continue Lantus and insulin sliding scale with carb coverage. 3. History of CVA-on Plavix. Patient has no residual deficits from stroke. Repeat echo reveals ejection fraction 60-65%, no segmental left ventricular wall motion abnormalities, grade 2 diastolic dysfunction, no significant valve pathology, and intact intra-atrial septum with no evidence for atrial septal defect, no evidence of intra-atrial shunt 4. Mood disorder-continue BuSpar and Zoloft. Recommendations as above. DVT prophylaxis Lovenox Full code Disposition-likely to home in 1-2 days. Alize Diaz DO [facility] Hospitalist Consultants: Cardiology[facility]ovana Current Inpatient Medications: Current Inpatient Medications Medications (Trade) Dose Ordered Sig/Yola Route Start Time Stop Time Status Last Admin Dose Admin Ioversol (Optiray 320) 100 ml UD PRN IV 07/22/17 23:00 07/26/17 22:59 Losartan Potassium (coZAAR TAB) 100 mg QAM PO 07/24/17 09:00 08/23/17 08:59 Enoxaparin Sodium (Lovenox Inj) 40 mg Q24H SC 07/23/17 09:00 08/22/17 08:59 07/23/17 07:07 40 MG Potassium Chloride/Sodium Chloride 1,000 ml @ 60 mls/hr [id number] ONCE IV 07/23/17 03:00 07/23/17 19:39 07/23/17 03:35 60 MLS/HR Acetaminophen (Tylenol Tab) 650 mg Q4H PRN PO 07/23/17 02:30 08/22/17 02:29 07/23/17 03:45 650 MG Nitroglycerin (Nitrostat Tab) 0.4 mg UD PRN SL 07/23/17 02:30 08/22/17 02:29 Insulin Aspart (novoLOG ASPART) SLIDING SCALE If C... ACHS SC 07/23/17 06:30 08/22/17 06:59 07/23/17 12:04 8 UNITS Glucose (Glucose 40% Gel) 15-30 GRAMS 15 GRAMS... UD PRN PO 07/23/17 02:30 08/22/17 02:29 Glucose (Glucose Chew Tab) 4-8 Tablets 4 Tabl... UD PRN PO 07/23/17 02:30 08/22/17 02:29 Dextrose (Dextrose 50% 50ML Syringe) 25-50ML OF 50% DW IV FOR... UD PRN IV 07/23/17 02:30 08/22/17 02:29 Glucagon (Glucagon Inj) 1 mg UD PRN SQ 07/23/17 02:30 08/22/17 02:29 Morphine Sulfate (MoRPHine SULFATE INJ) 4 mg Q3H PRN IV 07/23/17 02:30 08/06/17 02:29 07/23/17 07:07 4 MG Tramadol HCl (Ultram Tab) not relieved by tylenol @ Q6H PRN PO 07/23/17 02:30 08/22/17 02:29 Prochlorperazine Edisylate 5 mg/ Syringe 5 ml @ 5 mls/min Q6H PRN IV 07/23/17 02:30 08/22/17 02:29 Lorazepam (Ativan Inj) 0.5 mg Q4H PRN IV 07/23/17 02:30 08/22/17 02:29 Insulin Glargine (Lantus Solostar Pen) 5 units BID SC 07/23/17 21:00 08/22/17 20:59 Atorvastatin Calcium (Lipitor Tab) 40 mg DAILY PO 07/23/17 09:00 08/22/17 08:59 07/23/17 07:09 40 MG Clopidogrel Bisulfate (plAVix TAB) 75 mg DAILY PO 07/23/17 09:00 08/22/17 08:59 07/23/17 07:08 75 MG Salmeterol Xinafoate/ Fluticasone (Advair Diskus 500/50 Inh) 1 puff BID INH 07/23/17 09:00 08/22/17 08:59 07/23/17 07:07 1 PUFF Gabapentin (Neurontin Cap) 600 mg HS PO 07/23/17 21:00 08/22/17 20:59 Multivitamins (Multivitamin Tab) 1 tab QAM PO 07/23/17 09:00 08/22/17 08:59 07/23/17 07:08 1 TAB Sertraline HCl (Zoloft Tab) 100 mg QAM PO 07/23/17 09:00 08/22/17 08:59 07/23/17 07:08 100 MG Buspirone HCl (Buspar Tab) 10 mg BID PO 07/23/17 09:00 08/22/17 08:59 07/23/17 07:08 10 MG Pantoprazole Sodium (Protonix Tab) 40 mg QAM PO 07/23/17 09:00 08/22/17 08:59 07/23/17 07:08 40 MG Polyethylene (Miralax Powder Packet) 17 gm DAILY PRN PO 07/23/17 03:30 08/22/17 03:29 Gabapentin (Neurontin Cap) 300 mg BID@0900,1200 PO 07/23/17 09:00 08/22/17 08:59 07/23/17 10:42 300 MG Miscellaneous (Iv Fluids Completed) 1 ea PRN PRN N/A 07/23/17 04:30 07/23/18 04:29 Clonidine HCl (Catapres Tab) 0.3 mg BID PO 07/23/17 21:00 08/22/17 08:59 Felodipine (Plendil Tabcr) 10 mg QAM PO 07/24/17 09:00 08/23/17 08:59
[2017-07-23] MEDS ORDERED: SODIUM CHLORIDE 0.65% NA SOLN 45 ML (OCEAN) ONE (19:36)
[2017-07-23] MEDS: CLONIDINE HCL 0.3 MG TAB PO SCH (21:10)
[2017-07-23] MEDS: INSULIN GLARGINE SOLOSTAR 100 UNITS/ML 3 ML PEN SC SCH (21:14)
[2017-07-24] VITALS (7 sets, daily range): BP systolic 114–169; BP diastolic 64–93; PULSE 76–97; TEMP 36.6–37.1; O2SAT 91–97
[2017-07-24] MEDS: ACETAMINOPHEN 325 MG TAB PO PRN (07:17)
[2017-07-24] MEDS: FLUTICASONE/SALMETEROL (ADVAIR) 500/50 INH 14 PUFF INH SCH ×2 (08:08→20:42)
[2017-07-24] MEDS: CLONIDINE HCL 0.3 MG TAB PO SCH (08:09)
[2017-07-24] MEDS: FELODIPINE 5 MG TABCR PO SCH (08:11)
[2017-07-24] MEDS: ATORVASTATIN 20 MG TAB PO SCH (08:34)
[2017-07-24] MEDS: INSULIN GLARGINE SOLOSTAR 100 UNITS/ML 3 ML PEN SC SCH ×2 (08:34→20:42)
[2017-07-24] MEDS: INSULIN ASPART 100 UNITS/ML 3 ML PEN SC SCH ×4 (08:34→20:43)
[2017-07-24] MEDS: GABAPENTIN 300 MG CAP PO SCH ×3 (08:35→20:43)
[2017-07-24] MEDS: SERTRALINE HCL 100 MG TAB PO SCH (08:35)
[2017-07-24] MEDS: LOSARTAN POTASSIUM 50 MG TAB PO SCH (08:35)
[2017-07-24] MEDS: CLOPIDOGREL BISULFATE 75 MG TAB PO SCH (08:35)
[2017-07-24] MEDS: MULTIVITAMIN TAB PO SCH (08:36)
[2017-07-24] MEDS: PANTOprazole SOD 40 MG TAB PO SCH (08:36)
[2017-07-24] MEDS: ENOXAPARIN 40 MG/0.4 ML SYR SC SCH (08:37)
[2017-07-24] MEDS ORDERED: AMLODIPINE BESYLATE 5 MG TAB PO SCH (09:00)
[2017-07-24] MEDS: MoRPHine SULFATE 4 MG/ML 1 ML CARP\\VIAL IV PRN (09:38)
[2017-07-24] MEDS ORDERED: CHLORTHALIDONE 25 MG TAB PO ONE (12:37)
--- NOTE | 2017-07-24 12:42 | Cardiology Follow-Up ---
Subjective Subjective Date of Service: Jul 24, 2017. Pt evaluation today including: conversation w/ patient, physical exam, chart review, lab review, review of studies, review of inpatient medication list Additional Details: Pt seen and examined, states that she feels well. Denies cp, sob, palpitations, lightheadedness or dizziness. Does admit to nocturnal snoring and daytime somnolence. Tele reviewed: sinus rhythm without arrhythmia or significant ectopy. Problem List Medical Problems: (1) Anemia Status: Acute (2) Facial droop Status: Acute (3) Hypertension Status: Chronic (4) Precordial chest pain Status: Acute (5) Shortness of breath Status: Acute (6) Slurred speech Status: Acute Review of Systems ENT: No see HPI, No hearing loss, No unusual epistaxis, No nasal symptoms, No sore throat, No tinnitus, No dental problems, No trouble swallowing, No problem reported Respiratory: No see HPI, No cough, No sputum, No wheezing, No shortness of breath, No dyspnea on exertion, No dyspnea at rest, No hemoptysis, No problem reported Objective Vital Signs Last Vital Signs Documentation Date Time Temp Pulse Resp B/P (MAP) Pulse Ox O2 Delivery O2 Flow Rate FiO2 07/24/17 11:42 37.1 92 16 163/84 (110) 94 07/24/17 08:00 Room Air Physical Exam: General Appearance: WD/WN, no apparent distress Eyes: bilateral eyes normal inspection, bilateral eyes PERRL, bilateral eyes EOMI ENT: normal ENT inspection, hearing grossly normal, pharynx normal Neck: supple, no adenopathy, thyroid normal, no JVD, no carotid bruits, trachea midline Respiratory/Chest: chest non-tender, lungs clear, normal breath sounds, no respiratory distress, no accessory muscle use Cardiovascular: regular rate, rhythm, no edema, no JVD, no murmur, + gallop/S4 Abdomen: normal bowel sounds, non tender, soft, no organomegaly Extremities: normal range of motion, non-tender, normal inspection, no pedal edema, no calf tenderness Neurologic/Psychiatric: travel registered nurse icu II-XII nml as tested, no motor/sensory deficits, alert, normal mood/affect, oriented x 3 Assessment and Plan 1. hypertensive urgency improving with addition of felodipine but not yet at goal pt tolerating felodipine well, discussed similarities to amlodipine but decreased risk of LE edema will add chlorthalidone today for further control 2. ZEN very high likelihood given body habitus and drug resistant hypertension will obtain nocturnal pulse ox tonight will likely require formal sleep study as outpatient continue to monitor on tele
[2017-07-24 13:35] LABS: CALCIUM 8.6 mg/dl (8.5-10.1); CREATININE 0.98 mg/dl (0.60-1.20); POTASSIUM 3.4 mmol/L (3.5-5.1)
[2017-07-24] MEDS ORDERED: NAPROXEN 375 MG TAB PO ONE (17:00)
[2017-07-24] MEDS: CLONIDINE HCL 0.1 MG TAB PO SCH (20:43)
--- NOTE | 2017-07-24 21:24 | Progress Note ---
Medicine Progress Note Date & Time of Visit: Jul 24, 2017 at 1300. Subjective 57-year-old female admitted for shortness of breath and hypertensive urgency. Denies chest pain overnight. Denies shortness of breath at rest today. Tolerating p.o. Ambulating at baseline. Denies any other symptoms at this time. Blood pressure remained 170 systolic this morning despite change to blood pressure meds yesterday. Cardiology placed the patient on chlorthalidone. Overnight pulse oximetry is ordered. Objective Last 8 Hrs Date Time Temp Pulse Resp B/P (MAP) Pulse Ox O2 Delivery O2 Flow Rate FiO2 07/24/17 19:14 36.9 97 16 151/84 (106) 97 Room Air 07/24/17 16:00 Room Air 07/24/17 15:20 36.7 86 18 114/64 (81) 91 Room Air 07/24/17 14:39 37.0 90 18 116/71 (86) 95 Room Air 126/72 (90) Physical Exam: GEN: obese, in no acute distress, alert and appropriate HEENT: NC/AT, normal sclerae, MMM CARDIO: reg rate, S1/2 heard without m/g/r LUNGS: CTA bilaterally, no crackles, rales or wheezes, good diaphragmatic excursion ABD: soft, non-tender, non-distended, no rebound or guarding, +BS EXTREMITY: RP and DP palpable 2+ bilat, no LE swelling or edema, extremities are warm and well-perfused NEURO: CN 2-12 grossly intact, no gross focal deficits. MUSC: moves all extremities equally, no gross focal deficits. SKIN: warm and dry Laboratory Results: 07/23/17 05:09 Red Blood Count 4.86, Mean Corpuscular Volume 71.8, Mean Corpuscular Hemoglobin 22.8, Mean Corpuscular Hemoglobin Concent 31.8, Mean Platelet Volume 9.1, Neutrophils (%) (Auto) 76.4, Lymphocytes (%) (Auto) 15.5, Monocytes (%) (Auto) 4.1, Eosinophils (%) (Auto) 3.1, Basophils (%) (Auto) 0.4, Neutrophils # (Auto) 8.49, Lymphocytes # (Auto) 1.73, Monocytes # (Auto) 0.46, Eosinophils # (Auto) 0.35, Basophils # (Auto) 0.04 07/24/17 13:02 Test 07/22/17 19:50 07/22/17 19:58 07/23/17 05:09 07/23/17 06:00 Prothrombin Time 10.0 SECONDS (9.0-12.0) Prothromb Time International Ratio 1.0 (0.9-1.1) Activated Partial Thromboplast Time 25.3 SECONDS (21.0-31.0) Partial Thromboplastin Ratio 1.0 D-Dimer 520 ug/L FEU (0-500) Estimated Average Glucose 217 mg/dl Hemoglobin A1c 9.2 % (4.5-5.6) Magnesium Level 2.1 mg/dl (1.8-2.4) Total Creatine Kinase 102 U/L (26-192) Creatine Kinase MB 1.1 ng/ml (0.5-3.6) Creatine Kinase MB Ratio 1.1 (0-3.0) Globulin 4.1 gm/dl (2.5-4.0) Albumin/Globulin Ratio 0.9 (0.9-2) Lipase 151 U/L (73-393) Thyroid Stimulating Hormone (TSH) 0.597 uIu/ml (0.300-4.500) Influenza Type A Antigen Neg for Influ A (NEG) Influenza Type B Antigen Neg for Influ B (NEG) Urine Color YELLOW Urine Appearance CLEAR (CLEAR) Urine pH 7.5 (4.5-7.5) Urine Specific [place] 1.021 (1.000-1.030) Urine Protein NEG (NEG) Urine Glucose (UA) 3+ (NEG) Urine Ketones NEG (NEG) Urine Occult Blood NEG (NEG) Urine Nitrite NEG (NEG) Urine Bilirubin NEG (NEG) Urine Urobilinogen NEG (NEG) Urine Leukocyte Esterase NEG (NEG) White Blood Count 11.13 K/uL (4.8-10.8) Red Blood Count 4.86 M/uL (4.2-5.4) Hemoglobin 11.1 g/dL (12.0-16.0) Hematocrit 34.9 % (37-47) Mean Corpuscular Volume 71.8 fL (80-100) Mean Corpuscular Hemoglobin 22.8 pg (25-34) Mean Corpuscular Hemoglobin Concent 31.8 g/dl (32-36) Platelet Count 303 K/uL (130-400) Mean Platelet Volume 9.1 fL (7.4-10.4) Neutrophils (%) (Auto) 76.4 % Lymphocytes (%) (Auto) 15.5 % Monocytes (%) (Auto) 4.1 % Eosinophils (%) (Auto) 3.1 % Basophils (%) (Auto) 0.4 % Neutrophils # (Auto) 8.49 K/uL (1.4-6.5) Lymphocytes # (Auto) 1.73 K/uL (1.2-3.4) Monocytes # (Auto) 0.46 K/uL (0.11-0.59) Eosinophils # (Auto) 0.35 K/uL (0-0.5) Basophils # (Auto) 0.04 K/uL (0-0.2) RDW Standard Deviation 47.5 fL (36.4-46.3) RDW Coefficient of Variation 18.0 % (11.5-14.5) Immature Granulocyte % (Auto) 0.5 % Immature Granulocyte # (Auto) 0.06 K/uL (0.00-0.02) Total Bilirubin 0.6 mg/dl (0.2-1) Direct Bilirubin 0.1 mg/dl (0-0.2) Aspartate Amino Transf (AST/SGOT) 17 U/L (15-37) Alanine Aminotransferase (ALT/SGPT) 27 U/L (12-78) Alkaline Phosphatase 160 U/L (45-117) Troponin I < 0.015 ng/ml (0-0.045) Total Protein 7.2 gm/dl (6.4-8.2) Albumin 3.2 gm/dl (3.4-5.0) Hepatitis C Antibody Screen NEG (NEG) Test 07/24/17 13:02 07/24/17 20:20 Anion Gap 7.0 mmol/L (3-11) Est Creatinine Clear Calc Drug Dose 68.1 ml/min Estimated GFR () 75.3 Estimated GFR (Non- 64.9 BUN/Creatinine Ratio 20.0 (10-20) Calcium Level 8.6 mg/dl (8.5-10.1) Bedside Glucose 137 mg/dl (70-90) Last 24 Hours Test 07/24/17 07:22 07/24/17 11:29 07/24/17 13:02 07/24/17 16:18 Bedside Glucose 147 mg/dl 175 mg/dl 130 mg/dl Sodium Level 137 mmol/L Potassium Level 3.4 mmol/L Chloride Level 104 mmol/L Carbon Dioxide Level 26 mmol/L Anion Gap 7.0 mmol/L Blood Urea Nitrogen 19 mg/dl Creatinine 0.98 mg/dl Est Creatinine Clear Calc Drug Dose 68.1 ml/min Estimated GFR () 75.3 Estimated GFR (Non- 64.9 BUN/Creatinine Ratio 20.0 Random Glucose 189 mg/dl Calcium Level 8.6 mg/dl Test 07/24/17 20:20 Bedside Glucose 137 mg/dl Assessment & Plan 57-year-old female admitted for shortness of breath and hypertensive urgency. Denies chest pain overnight. Denies shortness of breath at rest today. Tolerating p.o. Ambulating at baseline. Denies any other symptoms at this time. Blood pressure remained 170 systolic this morning despite change to blood pressure meds yesterday. Cardiology placed the patient on chlorthalidone. Overnight pulse oximetry is ordered. 1. Hypertension-medication outpatient regimen not ideal. Cardiology making adjustments to include the addition of Plendil, continuation of clonidine twice daily with a plan to wean, and losartan. Telemetry review overnight reveals sinus rhythm in the 80s and 90s with no events. Of note hypertension may be secondary to significant insomnia and anxiety as patient has PTSD. She continues on Zoloft 100 every morning and BuSpar 10 p.o. twice daily, however, she has started to have nightmares again. Recommend continued workup per PCP and mental health provider as outpatient. Also may consider polysomnogram with daytime somnolence symptoms reported an outpatient records. Overnight pulse oximetry ordered as inpatient. Cardiology added chlorthalidone today. 2. Diabetes type 2-A1c uncontrolled on current regimen of metformin XR 500 daily and Januvia. sourcing consultant has spoken with patient. Plan to increase Metformin and Januvia to Janumet at discharge. Patient is fine with this and tolerates metformin well at this time. As inpatient will continue Lantus and insulin sliding scale with carb coverage with stricter control as levels were elevated than in the 200s this morning. 3. History of CVA-on Plavix. Patient has no residual deficits from stroke. Repeat echo reveals ejection fraction 60-65%, no segmental left ventricular wall motion abnormalities, grade 2 diastolic dysfunction, no significant valve pathology, and intact intra-atrial septum with no evidence for atrial septal defect, no evidence of intra-atrial shunt 4. Mood disorder-continue BuSpar and Zoloft. Recommendations as above. DVT prophylaxis Lovenox Full code Disposition-likely to home in 1-2 days. DO [facility] Consultants: Cardiology-Thee Current Inpatient Medications: Current Inpatient Medications Medications (Trade) Dose Ordered Sig/Yola Route Start Time Stop Time Status Last Admin Dose Admin Ioversol (Optiray 320) 100 ml UD PRN IV 07/22/17 23:00 07/26/17 22:59 Losartan Potassium (coZAAR TAB) 100 mg QAM PO 07/24/17 09:00 08/23/17 08:59 07/24/17 08:35 100 MG Enoxaparin Sodium (Lovenox Inj) 40 mg Q24H SC 07/23/17 09:00 08/22/17 08:59 07/24/17 08:37 40 MG Acetaminophen (Tylenol Tab) 650 mg Q4H PRN PO 07/23/17 02:30 08/22/17 02:29 07/24/17 07:17 650 MG Nitroglycerin (Nitrostat Tab) 0.4 mg UD PRN SL 07/23/17 02:30 08/22/17 02:29 Insulin Aspart (novoLOG ASPART) SLIDING SCALE If C... ACHS SC 07/23/17 06:30 08/22/17 06:59 07/24/17 17:19 8 UNITS Glucose (Glucose 40% Gel) 15-30 GRAMS 15 GRAMS... UD PRN PO 07/23/17 02:30 08/22/17 02:29 Glucose (Glucose Chew Tab) 4-8 Tablets 4 Tabl... UD PRN PO 07/23/17 02:30 08/22/17 02:29 Dextrose (Dextrose 50% 50ML Syringe) 25-50ML OF 50% DW IV FOR... UD PRN IV 07/23/17 02:30 08/22/17 02:29 Glucagon (Glucagon Inj) 1 mg UD PRN SQ 07/23/17 02:30 08/22/17 02:29 Prochlorperazine Edisylate 5 mg/ Syringe 5 ml @ 5 mls/min Q6H PRN IV 07/23/17 02:30 08/22/17 02:29 Lorazepam (Ativan Inj) 0.5 mg Q4H PRN IV 07/23/17 02:30 08/22/17 02:29 Atorvastatin Calcium (Lipitor Tab) 40 mg DAILY PO 07/23/17 09:00 08/22/17 08:59 07/24/17 08:34 40 MG Clopidogrel Bisulfate (plAVix TAB) 75 mg DAILY PO 07/23/17 09:00 08/22/17 08:59 07/24/17 08:35 75 MG Salmeterol Xinafoate/ Fluticasone (Advair Diskus 500/50 Inh) 1 puff BID INH 07/23/17 09:00 08/22/17 08:59 07/24/17 20:42 1 PUFF Gabapentin (Neurontin Cap) 600 mg HS PO 07/23/17 21:00 08/22/17 20:59 07/24/17 20:43 600 MG Multivitamins (Multivitamin Tab) 1 tab QAM PO 07/23/17 09:00 08/22/17 08:59 07/24/17 08:36 1 TAB Sertraline HCl (Zoloft Tab) 100 mg QAM PO 07/23/17 09:00 08/22/17 08:59 07/24/17 08:35 100 MG Buspirone HCl (Buspar Tab) 10 mg BID PO 07/23/17 09:00 08/22/17 08:59 07/24/17 20:42 10 MG Pantoprazole Sodium (Protonix Tab) 40 mg QAM PO 07/23/17 09:00 08/22/17 08:59 07/24/17 08:36 40 MG Polyethylene (Miralax Powder Packet) 17 gm DAILY PRN PO 07/23/17 03:30 08/22/17 03:29 Gabapentin (Neurontin Cap) 300 mg BID@0900,1200 PO 07/23/17 09:00 08/22/17 08:59 07/24/17 12:33 300 MG Miscellaneous (Iv Fluids Completed) 1 ea PRN PRN N/A 07/23/17 04:30 07/23/18 04:29 Felodipine (Plendil Tabcr) 10 mg QAM PO 07/24/17 09:00 08/23/17 08:59 07/24/17 08:11 10 MG Insulin Glargine (Lantus Solostar Pen) 10 units BID SC 07/24/17 21:00 08/22/17 20:59 07/24/17 20:42 10 UNITS Chlorthalidone (Hygroton Tab) 25 mg QAM PO 07/25/17 09:00 08/24/17 08:59 Clonidine HCl (Catapres Tab) 0.2 mg BID PO 07/24/17 21:00 08/22/17 08:59 07/24/17 20:43 0.2 MG
[2017-07-25 00:54] LABS: CALCIUM 8.8 mg/dl (8.5-10.1); CREATININE 1.05 mg/dl (0.60-1.20); POTASSIUM 3.4 mmol/L (3.5-5.1)
--- NOTE | 2017-07-25 05:59 | Clinical Documentation Query ---
CLINICAL DOCUMENTATION QUERY 57 year old female who presents to the Emergency Room with SOB,CP, JEAN and dizziness found to be profoundly hypertensive. She has been diagnoses with hypertensive Urgency. Hypertensive urgency is defined as a blood pressure greater than 180/120 mm Hg in the absence of progressive target organ dysfunction. These patients are often [id number] or inadequately treated. Unfortunately, the term `urgency' has led to overly aggressive management of many patients with severe, uncomplicated hypertension. The [employer] ([employer]) 2013 policy statement chooses the phrase asymptomatic elevated blood pressure rather than hypertensive urgency. No evidence exists that specific treatment for hypertensive urgency is warranted. Patients likely will need to have their medications adjusted or reinitiated in the presence of non-adherence A hypertensive crisis occurs when blood pressure elevates rapidly and severely enough to potentially cause organ damage. Patients may present with symptoms of: *acute headache, *shortness of breath, *epistaxis, *marked anxiety/confusion, *nausea/vomiting Immediate evaluation is needed to assess organ function, and determine appropriate treatment. In your clinical opinion is this patient being managed for: ( ) Hypertensive crisis ( ) Hypertensive Urgency ( ) Severe uncomplicated HTN ( ) Not Agree ( x ) Other explanation of clinical findings -Uncontrolled hypertension ( ) Unable to determine (Please Define) ( ) Need to Discuss The medical record reflects the following clinical findings, treatment, and risk factors. Clinical Indicators: In addition to above, BP 207/112, WBC's 11.11, Treatment: Catapress, Norvasc, Cozaar, IV morphine, Felodipine, Chlorthalidone, Cardiology consult, Risk Factors: Age, obesity, ZEN, history of HTN, Please clarify and document your clinical opinion in the progress notes and discharge summary. Terms such as "probable", "suspected", "likely", "questionable", "possible", or "still to be ruled out" are acceptable. IF IN AGREEMENT, YOU MUST DOCUMENT ABOVE DIAGNOSTIC STATEMENT IN DAILY PROGRESS NOTES AND DISCHARGE SUMMARY. This document is not part of the patient's record. Thank You, Lai Torres, OLIVER [phone]
[2017-07-25 07:19] VITALS: BP 171/92; PULSE 105; TEMP 36.4; O2SAT 95
[2017-07-25] MEDS ORDERED: CHLORTHALIDONE 25 MG TAB PO SCH (08:00)
[2017-07-25] MEDS: FLUTICASONE/SALMETEROL (ADVAIR) 500/50 INH 14 PUFF INH SCH (08:16)
[2017-07-25] MEDS: CLOPIDOGREL BISULFATE 75 MG TAB PO SCH (08:17)
[2017-07-25] MEDS: MULTIVITAMIN TAB PO SCH (08:17)
[2017-07-25] MEDS: CLONIDINE HCL 0.1 MG TAB PO SCH (08:17)
[2017-07-25] MEDS: GABAPENTIN 300 MG CAP PO SCH ×2 (08:18→12:07)
[2017-07-25] MEDS: SERTRALINE HCL 100 MG TAB PO SCH (08:18)
[2017-07-25] MEDS: ATORVASTATIN 20 MG TAB PO SCH (08:18)
[2017-07-25] MEDS: LOSARTAN POTASSIUM 50 MG TAB PO SCH (08:18)
[2017-07-25] MEDS: FELODIPINE 5 MG TABCR PO SCH (08:19)
[2017-07-25] MEDS: PANTOprazole SOD 40 MG TAB PO SCH (08:19)
[2017-07-25] MEDS: ENOXAPARIN 40 MG/0.4 ML SYR SC SCH (08:20)
[2017-07-25] MEDS: INSULIN GLARGINE SOLOSTAR 100 UNITS/ML 3 ML PEN SC SCH (08:55)
[2017-07-25] MEDS: INSULIN ASPART 100 UNITS/ML 3 ML PEN SC SCH ×2 (08:55→12:11)
[2017-07-25] MEDS ORDERED: POTASSIUM CHLORIDE 20 MEQ TABCR PO ONE (09:15)
[2017-07-25 10:39] VITALS: O2SAT 95
[2017-07-25] MEDS ORDERED: HYG25 PO (13:52)
[2017-07-25] MEDS ORDERED: CTP1 PO (13:52)
[2017-07-25] MEDS ORDERED: PLN5 PO (13:52)
[2017-07-25] MEDS ORDERED: SITA50TA5 PO (13:52)
--- NOTE | 2017-07-25 13:59 | Discharge Instructions ---
Discharge Instructions Date of Service Jul 25, 2017. Admission Reason for Admission: Hypertensive Urgency Discharge Discharge Diagnosis / Problem: Uncontrolled Hypertension Discharge Goals Goal(s): Prevent Disease Progression Activity Recommendations Activity Limitations: per Instructions/Follow-up section . Instructions / Follow-Up Instructions / Follow-Up Please take all medications as instructed. You have a follow-up appointment with Dr. Navya Henson on , 07/30 @ 1:15pm for follow-up from this hospitalization. You have been scheduled for an outpatient sleep study on 08/08/17 @ 8:00pm. The sleep lab at [facility] will will call you two days before the appointment to go over instructions with you. It was a pleasure taking care of you! Call if you have any questions or problems. You can reach a [facility] hospitalist on duty at [facility] 24 hours a day by calling [phone]. Take care of yourself. Alize Diaz DO [facility] Hospitalist Current Hospital Diet Patient's current hospital diet: Diabetes Type 2 Diet, AHA Diet (Heart Healthy) Discharge Diet Recommended Diet: AHA Diet (Heart Healthy), Diabetes Type 2 Diet Procedures Procedures Performed: nocturnal pulse oximetry Pending Studies Studies pending at discharge: no Laboratory Results Hemoglobin A1c Test 07/22/17 19:50 Range/Units Estimated Average Glucose 217 mg/dl Hemoglobin A1c 9.2 H 4.5-5.6 % Medical Emergencies . Who to Call and When: Medical Emergencies: If at any time you feel your situation is an emergency, please call 911 immediately. . Non-Emergent Contact Non-Emergency issues call your: Primary Care Provider . . "Provider Documentation" section prepared by Alize Diaz. .
--- NOTE | 2017-07-25 14:08 | Discharge Summary ---
Discharge Summary Date of Service Jul 25, 2017. Discharge Summary Admission Date: Jul 24, 2017 at 16:50 Discharge Date: Jul 25, 2017 Discharge Disposition: Home Principal Diagnosis: Uncontrolled hypertension DMII Obesity Mood disorder h/o stroke without residual deficit. Procedures: nocturnal pulse oximetry Vaccinations: None. Consultations: Cardiology-Thee Pending Studies/Follow-Up: see instructions below. Medication Reconciliation New Medications: Sitagliptin-Metformin Hcl (Janumet) 1 Tab Tab 50-1000 MG PO BID for 30 Days, #60 TAB 1 Refill Chlorthalidone (Chlorthalidone) 25 Mg Tab 25 MG PO QAM for 30 Days, #30 TAB 1 Refill Clonidine HCl (Clonidine HCl) 0.1 Mg Tab 0.2 MG PO BID for 30 Days, #60 TAB 1 Refill Felodipine (Felodipine ER) 5 Mg Tabcr 10 MG PO QAM for 30 Days, #30 TAB 1 Refill Continued Medications: Albuterol Hfa (Ventolin Hfa) 200 Puffs/14314 Mcg Aers 2 PUFFS INH Q6H PRN for SOB/Wheezing Albuterol Sulf (Proventil 0.083% 2.5MG/3ML) 2.5 Mg/3 Ml Nebu 2.5 MG INH Q6H PRN for SOB/Wheezing Atorvastatin (Lipitor) 40 Mg Tab 40 MG PO DAILY, TAB Buspirone Hcl (Buspirone Hcl) 10 Mg Tab 10 MG PO BID, TAB Clopidogrel (Plavix) 75 Mg Tab 75 MG PO DAILY, TAB Fluticasone Prop/Salmeterol (Advair Diskus 500/50 60 Dose) 1 Ea Aerp 1 PUFF INH BID Gabapentin (Neurontin) 300 Mg Cap 0 PO UD 1 pill each morning 1 pill at noon 2 pills at bedtime Losartan Potassium (Cozaar) 100 Mg Tab 100 MG PO QAM Multivitamin (Multivitamin) Tab 1 TAB PO QAM Omeprazole (Prilosec) 40 Mg Cap 40 MG PO DAILY, CAP Polyethylene Glycol 3350 (Miralax) 1 Pow Pow 17 GM PO DAILY PRN for Constipation Sertraline (Zoloft) 100 Mg Tab 100 MG PO QAM Discontinued Medications: Clonidine Hcl (Catapres) 0.3 Mg Tab 0.3 MG PO BID Metformin Ext Rel (Glucophage Ext Rel) 500 Mg Tab 500 MG PO DAILY, TAB Sitagliptin (Januvia) Unknown Strength Tab Unknown Dose PO DAILY, TAB Hospital Course 57-year-old female admitted for shortness of breath and hypertensive urgency. Denies chest pain overnight. Denies shortness of breath at rest today. Tolerating p.o. Ambulating at baseline. Denies any other symptoms at this time. Blood pressure remained 170 systolic this morning despite change to blood pressure meds yesterday. Cardiology placed the patient on chlorthalidone. Overnight pulse oximetry is ordered. 1. Hypertension-medication outpatient regimen not ideal. Cardiology making adjustments to include the addition of Plendil, continuation of clonidine twice daily with a plan to wean, and losartan. Telemetry review overnight reveals sinus rhythm in the 80s and 90s with no events. Of note hypertension may be secondary to significant insomnia and anxiety as patient has PTSD. She continues on Zoloft 100 every morning and BuSpar 10 p.o. twice daily, however, she has started to have nightmares again. Recommend continued workup per PCP and mental health provider as outpatient. Also may consider polysomnogram with daytime somnolence symptoms reported an outpatient records. Overnight pulse oximetry ordered as inpatient. Cardiology added chlorthalidone today. 2. Diabetes type 2-A1c uncontrolled on current regimen of metformin XR 500 daily and Januvia. certified adaptive physical educator has spoken with patient. Plan to increase Metformin and Januvia to Janumet at discharge. Patient is fine with this and tolerates metformin well at this time. As inpatient will continue Lantus and insulin sliding scale with carb coverage with stricter control as levels were elevated than in the 200s this morning. 3. History of CVA-on Plavix. Patient has no residual deficits from stroke. Repeat echo reveals ejection fraction 60-65%, no segmental left ventricular wall motion abnormalities, grade 2 diastolic dysfunction, no significant valve pathology, and intact intra-atrial septum with no evidence for atrial septal defect, no evidence of intra-atrial shunt 4. Mood disorder-continue BuSpar and Zoloft. Recommendations as above. DVT prophylaxis Lovenox Full code Disposition-likely to home in 1-2 days. DO [facility] Total time spent on discharge = 60 minutes This includes examination of the patient, discharge planning, medication reconciliation, and communication with other providers. Discharge Instructions [address] [address] Discharge Medical Patient Name: Gabi Alfaro Unit Number: [id number] Date of : 1960 Patient Status: Admitted Inpatient Attending Doctor: Alize Diaz DO DI: Medical v5 Discharge Instructions Date of Service Jul 25, 2017. Admission Reason for Admission: Hypertensive Urgency Discharge Discharge Diagnosis / Problem: Uncontrolled Hypertension Discharge Goals Goal(s): Prevent Disease Progression Activity Recommendations Activity Limitations: per Instructions/Follow-up section . Instructions / Follow-Up Instructions / Follow-Up Please take all medications as instructed. You have a follow-up appointment with Dr. Navya Henson on 07/30 @ 1:15pm for follow-up from this hospitalization. You have been scheduled for an outpatient sleep study on 08/08/17 @ 8:00pm. The sleep lab at [facility] will will call you two days before the appointment to go over instructions with you. It was a pleasure taking care of you! Call if you have any questions or problems. You can reach a [facility] hospitalist on duty at [facility] 24 hours a day by calling [phone]. Take care of yourself. Alize Diaz DO [facility] Hospitalist Current Hospital Diet Patient's current hospital diet: Diabetes Type 2 Diet, AHA Diet (Heart Healthy) Discharge Diet Recommended Diet: AHA Diet (Heart Healthy), Diabetes Type 2 Diet Procedures Procedures Performed: nocturnal pulse oximetry Pending Studies Studies pending at discharge: no Laboratory Results Hemoglobin A1c Test 07/22/17 19:50 Range/Units Estimated Average Glucose 217 mg/dl Hemoglobin A1c 9.2 H 4.5-5.6 % Medical Emergencies . Who to Call and When: Medical Emergencies: If at any time you feel your situation is an emergency, please call 911 immediately. . Non-Emergent Contact Non-Emergency issues call your: Primary Care Provider . . "Provider Documentation" section prepared by Alize Diaz. . Additional Copies To Navya Henson D.O.
[2017-07-25 14:27] VITALS: BP 171/92; PULSE 105; TEMP 36.4; O2SAT 95
[2017-07-25] MEDS ORDERED: CLON0.2T PO (14:38)
[2017-07-25] MEDS ORDERED: FELO10TA2 PO (14:38)
== END 2017-07-25 14:42 | disposition home or self-care (01) | DRG 305 ==
LOC: C.EDB 19:16 → C.MED 07-23 02:21 → ENRESERV 07-23 02:44 → OBSVTOIN 07-24 16:50 → C.4E 07-24 22:37
PROVIDERS: ADMIT Internal Medicine; ATTEND Hospitalist
DX: I16.0 Hypertensive urgency (principal); J45.909 Unspecified asthma, uncomplicated; E11.9 Type 2 diabetes mellitus without complications; E78.5 Hyperlipidemia, unspecified; I10 Essential (primary) hypertension; D64.9 Anemia, unspecified; Z86.73 Personal history of transient ischemic attack (TIA), and cerebral infarction without residual deficits; G47.33 Obstructive sleep apnea (adult) (pediatric)